=== PATIENT | female | born 1935 | race Caucasian/White ===

== ENCOUNTER 2018-12-01 09:45 | Emergency (ER) | payer MEDICARE ==
[~2018-12-01] VITALS: Ht 167.6 cm; Wt 72.7 kg
[2018-12-01 09:46] VITALS: TEMP 98.2
[2018-12-01 10:49] LABS: BASO # 0.1 (0.0-0.2); BASO % 0.4 % (0.0-2.0); EOS % 0.1 % (0-4.0); GRAN # 10.4 (1.4-6.5); GRAN % 88.5 % (42.2-75.2); HEMATOCRIT 48.8 % (37.0-47.0); HEMOGLOBIN 16.4 g/dl (12.5-16.0); LYMPH # 0.7 (1.2-3.4); LYMPH % 5.9 % (20.0-51.0); MEAN CELL VOLUME 89 fl (80.0-100.0); MEAN CORPUSCULAR HEMOGLOBIN 30 pg (27.0-31.0); MEAN CORPUSCULAR HGB CONC 34 g/dl (33.0-37.0); MEAN PLATELET VOLUME 11.2 fl (7.4-10.4); MONO # 0.6 (0.1-0.6); MONO % 4.7 % (1.7-9.3); PLATELET COUNT 206 K/mm3 (130-400); RED BLOOD COUNT 5.49 M/mm3 (4.10-5.30)
[2018-12-01 10:59] LABS: PROTHROMBIN TIME 11.3 SECONDS (9.7-12.8)
[2018-12-01 11:05] LABS: ALBUMIN 4.4 gm/dL (3.5-5.0); BILIRUBIN,TOTAL 1.1 mg/dL (0.0-1.0); CALCIUM 9.2 mg/dL (8.4-10.2); CREATININE, serum 1.26 (0.52-1.25); POTASSIUM 3.9 mmol/L (3.4-5.0); TOTAL PROTEIN 7.9 gm/dL (6.4-8.2)
[2018-12-01 11:23] VITALS: BP 146/83; PULSE 76
[2018-12-01 11:27] LABS: TROPONIN-I 0.056 ng/mL (0.000-0.035)
== END 2018-12-01 12:04 | disposition short-term general hospital (02) ==
LOC: COL.ER 09:45
PROVIDERS: Emergency Medicine
DX: I63.9 Cerebral infarction, unspecified (principal)
CPT/HCPCS: A4314; J2405; J2997

== ENCOUNTER 2018-12-22 21:29 | Inpatient (IN) | payer MEDICARE, MEDICAID ==
[~2018-12-22] VITALS: Ht 165.1 cm; Wt 65.9 kg
[2018-12-22 22:13] LABS: BASO # 0.1 (0.0-0.2); BASO % 0.3 % (0.0-2.0); EOS # 0.6 (0.0-0.7); EOS % 3.8 % (0-4.0); GRAN # 14.9 (1.4-6.5); GRAN % 87.3 % (42.2-75.2); LYMPH # 0.4 (1.2-3.4); LYMPH % 2.2 % (20.0-51.0); MEAN CELL VOLUME 89 fl (80.0-100.0); MEAN CORPUSCULAR HGB CONC 33 g/dl (33.0-37.0); MEAN PLATELET VOLUME 10.8 fl (7.4-10.4); MONO # 0.9 (0.1-0.6); MONO % 5.5 % (1.7-9.3); PLATELET COUNT 327 K/mm3 (130-400); RED BLOOD COUNT 3.31 M/mm3 (4.10-5.30); REDCELL DISTRIBUTION WIDTH-CV 14.5 % (11.5-14.5)
[2018-12-22 22:15] LABS: HEMATOCRIT 29.4 % (37.0-47.0); HEMOGLOBIN 9.7 g/dl (12.5-16.0); MEAN CORPUSCULAR HEMOGLOBIN 29 pg (27.0-31.0)
[2018-12-22 22:18] LABS: INR 1.2 (0.8-3.0)
[2018-12-22] MEDS ORDERED: LOPRESSOR 225 MG/TAB PO ×2 (22:18)
[2018-12-22] MEDS ORDERED: PACERONE400 MG PO (22:18)
[2018-12-22] MEDS ORDERED: NORVASC 10MG10 MG PO (22:19)
[2018-12-22] MEDS ORDERED: ASPIRIN 81M81 MG/TA2 PO (22:19)
[2018-12-22 22:20] LABS: ARTERIAL BLD GAS O2 SATURATION 94.8 % (92-100); ARTERIAL BLD GAS TCO2 CT 22.8; ARTERIAL BLOOD GAS BASE EXCESS -0.3 (-2-2); ARTERIAL BLOOD GAS HCO3 21.9 meq/L (22-26); ARTERIAL BLOOD GAS PCO2 28.1 mmHg (35-45); ARTERIAL BLOOD GAS PO2 70.8 mmHg (80-100); ARTERIAL BLOOD GAS pH 7.51 (7.35-7.45)
[2018-12-22] MEDS ORDERED: LIPITOR 40MG TA40 MG PO (22:20)
[2018-12-22 22:28] LABS: LIPASE 64 U/L (23-300)
[2018-12-22 22:39] LABS: C-REACTIVE PROTEIN 20.1 mg/dL (0.0-0.9); TROPONIN-I < 0.012 ng/mL (0.000-0.035)
[2018-12-22 23:13] LABS: ALBUMIN 3.4 gm/dL (3.5-5.0); BILIRUBIN,TOTAL 0.7 mg/dL (0.0-1.0); CALCIUM 8.2 mg/dL (8.4-10.2); CREATININE, serum 1.28 (0.52-1.25); POTASSIUM 4.4 mmol/L (3.4-5.0); TOTAL PROTEIN 6.5 gm/dL (6.4-8.2)
[2018-12-23] VITALS (101 sets, daily range): BP systolic 128–154; BP diastolic 55–76; PULSE 62–71; TEMP 98.2–98.7; O2SAT 88–95
[2018-12-23 01:35] LABS: COLLECTION METHOD CLEAN CATCH
[2018-12-23 01:44] LABS: MUCOUS Present /lpf; PH 5 (5-8); SQUAMOUS EPITHELIAL 0-2 /hpf; URINE APPEARANCE Clear; URINE BACTERIA None Seen /hpf; URINE BILIRUBIN Negative (NEGATIVE); URINE BLOOD Negative (NEGATIVE); URINE COLOR Yellow; URINE GLUCOSE Negative (NEGATIVE); URINE KETONE Negative (NEGATIVE); URINE LEUKOCYTE ESTERASE Negative (NEGATIVE); URINE NITRATE Negative (NEGATIVE); URINE PROTEIN(semi-quant) Negative (NEGATIVE); URINE RBC 0-2 /hpf; URINE UROBILINOGEN Negative (NEGATIVE)
[2018-12-23 09:32] LABS: ARTERIAL BLD GAS O2 SATURATION 88.5 % (92-100); ARTERIAL BLD GAS TCO2 CT 21.9; ARTERIAL BLOOD GAS BASE EXCESS -2.2 (-2-2); ARTERIAL BLOOD GAS HCO3 20.9 meq/L (22-26); ARTERIAL BLOOD GAS PCO2 30.3 mmHg (35-45); ARTERIAL BLOOD GAS PO2 53.9 mmHg (80-100); ARTERIAL BLOOD GAS pH 7.46 (7.35-7.45)
[2018-12-23 10:22] LABS: MEAN CELL VOLUME 90 fl (80.0-100.0); MEAN CORPUSCULAR HGB CONC 32 g/dl (33.0-37.0); MEAN PLATELET VOLUME 10.1 fl (7.4-10.4); PLATELET COUNT 234 K/mm3 (130-400); RED BLOOD COUNT 3.07 M/mm3 (4.10-5.30); REDCELL DISTRIBUTION WIDTH-CV 14.7 % (11.5-14.5)
[2018-12-23 10:24] LABS: HEMATOCRIT 27.5 % (37.0-47.0); HEMOGLOBIN 8.9 g/dl (12.5-16.0); MEAN CORPUSCULAR HEMOGLOBIN 29 pg (27.0-31.0)
[2018-12-23 10:34] LABS: ANION GAP 12 mmol/L (7-16); BLOOD UREA NITROGEN 26 mg/dL (7-17); CALCIUM 7.9 mg/dL (8.4-10.2); CARBON DIOXIDE 21 mmol/L (22-30); CHLORIDE 101 mmol/L (98-107); CREATININE, serum 1.42 (0.52-1.25); GLUCOSE 117 mg/dL (74-106); POTASSIUM 4.4 mmol/L (3.4-5.0); SODIUM 133 mmol/L (137-145)
[2018-12-23 10:47] LABS: TROPONIN-I < 0.012 ng/mL (0.000-0.035)
[2018-12-23 10:55] LABS: BAND 2 % (0-10); EOSINOPHIL 2 % (0-4); LYMPHOCYTE 1 % (20.0-51.0); NEUTROPHILS 93 % (42.0-75.2)
[2018-12-23 10:56] LABS: PLATELET ESTIMATE NORMAL (NORMAL)
[2018-12-23 12:47] LABS: PLEURAL FLUID RBC 3000 /mm3 (0-0); PLEURAL FLUID WBC 408 /mm3
[2018-12-23 12:59] LABS: GLUCOSE,PLEURAL FLUID 102 mg/dL
[2018-12-23 13:05] LABS: PLEURAL FLUID APPEARANCE CLEAR; PLEURAL FLUID COLOR YELLOW
[2018-12-23 13:06] LABS: TOTAL PROTEIN,PLEURAL FLUID < 2.0 gm/dL
[2018-12-23] MEDS ORDERED: ACIDOPHILIS (18:09)
[2018-12-23 19:17] LABS: HEMATOCRIT 24.8 % (37.0-47.0); HEMOGLOBIN 8.1 g/dl (12.5-16.0)
[2018-12-24] VITALS (440 sets, daily range): BP systolic 126–147; BP diastolic 53–68; PULSE 70–77; TEMP 98.1–98.7; O2SAT 88–99
[2018-12-24 05:57] LABS: CALCIUM 7.6 mg/dL (8.4-10.2); CREATININE, serum 1.34 (0.52-1.25); POTASSIUM 3.8 mmol/L (3.4-5.0)
[2018-12-24 05:59] LABS: MEAN CELL VOLUME 90 fl (80.0-100.0); MEAN CORPUSCULAR HGB CONC 32 g/dl (33.0-37.0); MEAN PLATELET VOLUME 10.7 fl (7.4-10.4); PLATELET COUNT 226 K/mm3 (130-400); RED BLOOD COUNT 2.73 M/mm3 (4.10-5.30); REDCELL DISTRIBUTION WIDTH-CV 14.7 % (11.5-14.5)
[2018-12-24 06:06] LABS: HEMATOCRIT 24.5 % (37.0-47.0); HEMOGLOBIN 7.8 g/dl (12.5-16.0); MEAN CORPUSCULAR HEMOGLOBIN 29 pg (27.0-31.0)
[2018-12-24 07:15] LABS: BAND 9 % (0-10); EOSINOPHIL 8 % (0-4); LYMPHOCYTE 2 % (20.0-51.0); NEUTROPHILS 77 % (42.0-75.2); PLATELET ESTIMATE NORMAL (NORMAL)
[2018-12-25] VITALS (487 sets, daily range): BP systolic 97–135; BP diastolic 40–72; PULSE 52–112; TEMP 97.7–99.2; O2SAT 65–100
[2018-12-25 05:52] LABS: BASO % 0.2 % (0.0-2.0); EOS # 0.8 (0.0-0.7); EOS % 6.1 % (0-4.0); GRAN # 10.8 (1.4-6.5); GRAN % 83.9 % (42.2-75.2); LYMPH # 0.5 (1.2-3.4); LYMPH % 4.2 % (20.0-51.0); MEAN CELL VOLUME 89 fl (80.0-100.0); MEAN CORPUSCULAR HGB CONC 33 g/dl (33.0-37.0); MEAN PLATELET VOLUME 10.3 fl (7.4-10.4); MONO # 0.6 (0.1-0.6); MONO % 4.8 % (1.7-9.3); PLATELET COUNT 254 K/mm3 (130-400); RED BLOOD COUNT 2.82 M/mm3 (4.10-5.30); REDCELL DISTRIBUTION WIDTH-CV 14.6 % (11.5-14.5)
[2018-12-25 05:55] LABS: HEMOGLOBIN 8.3 g/dl (12.5-16.0); MEAN CORPUSCULAR HEMOGLOBIN 29 pg (27.0-31.0)
[2018-12-25 06:05] LABS: ALBUMIN 2.9 gm/dL (3.5-5.0); BILIRUBIN,TOTAL 0.8 mg/dL (0.0-1.0); CALCIUM 7.6 mg/dL (8.4-10.2); CREATININE, serum 1.32 (0.52-1.25); TOTAL PROTEIN 5.8 gm/dL (6.4-8.2)
[2018-12-26] VITALS (643 sets, daily range): BP systolic 118–133; BP diastolic 47–56; PULSE 53–63; TEMP 97.4–98.8; O2SAT 73–100
[2018-12-26 05:39] LABS: MEAN CELL VOLUME 88 fl (80.0-100.0); MEAN CORPUSCULAR HGB CONC 33 g/dl (33.0-37.0); MEAN PLATELET VOLUME 10.6 fl (7.4-10.4); PLATELET COUNT 275 K/mm3 (130-400); RED BLOOD COUNT 2.73 M/mm3 (4.10-5.30); REDCELL DISTRIBUTION WIDTH-CV 14.6 % (11.5-14.5)
[2018-12-26 05:42] LABS: HEMOGLOBIN 7.9 g/dl (12.5-16.0); MEAN CORPUSCULAR HEMOGLOBIN 29 pg (27.0-31.0)
[2018-12-26 05:48] LABS: CALCIUM 7.5 mg/dL (8.4-10.2); CREATININE, serum 1.33 (0.52-1.25); POTASSIUM 3.3 mmol/L (3.4-5.0)
[2018-12-26 05:56] LABS: EOSINOPHIL 5 % (0-4); LYMPHOCYTE 4 % (20.0-51.0); NEUTROPHILS 87 % (42.0-75.2); PLATELET ESTIMATE NORMAL (NORMAL)
[2018-12-26] MEDS ORDERED: HERBAL PO (11:03)
[2018-12-26] MEDS ORDERED: [UNRECOGNIZED DRUG - OTHER] PO (11:03)
[2018-12-26 11:32] LABS: RETIC # 0.07 M/mm3 (0.02-0.16); RETIC % 2.5 % (0.5-3.52)
[2018-12-27] VITALS (729 sets, daily range): BP systolic 120–133; BP diastolic 49–83; PULSE 48–58; TEMP 97.7–98.2; O2SAT 82–100
[2018-12-27 00:01] LABS: ARTERIAL BLD GAS O2 SATURATION 88.7 % (92-100); ARTERIAL BLD GAS TCO2 CT 31.7; ARTERIAL BLOOD GAS BASE EXCESS 8.3 (-2-2); ARTERIAL BLOOD GAS HCO3 30.7 meq/L (22-26); ARTERIAL BLOOD GAS PCO2 33.8 mmHg (35-45); ARTERIAL BLOOD GAS PO2 52.1 mmHg (80-100); ARTERIAL BLOOD GAS pH 7.58 (7.35-7.45)
[2018-12-27 00:06] LABS: BASO % 0.2 % (0.0-2.0); EOS # 0.6 (0.0-0.7); EOS % 4.3 % (0-4.0); GRAN # 10.7 (1.4-6.5); GRAN % 83.3 % (42.2-75.2); HEMATOCRIT 23.6 % (37.0-47.0); HEMOGLOBIN 7.8 g/dl (12.5-16.0); LYMPH # 0.6 (1.2-3.4); LYMPH % 4.8 % (20.0-51.0); MEAN CELL VOLUME 88 fl (80.0-100.0); MEAN CORPUSCULAR HEMOGLOBIN 29 pg (27.0-31.0); MEAN CORPUSCULAR HGB CONC 33 g/dl (33.0-37.0); MEAN PLATELET VOLUME 10.8 fl (7.4-10.4); MONO # 0.8 (0.1-0.6); MONO % 6.2 % (1.7-9.3); PLATELET COUNT 293 K/mm3 (130-400); RED BLOOD COUNT 2.67 M/mm3 (4.10-5.30); REDCELL DISTRIBUTION WIDTH-CV 14.5 % (11.5-14.5)
[2018-12-27 00:16] LABS: CALCIUM 7.9 mg/dL (8.4-10.2); CREATININE, serum 1.37 (0.52-1.25); POTASSIUM 3.7 mmol/L (3.4-5.0)
[2018-12-28] VITALS (1013 sets, daily range): BP systolic 108–138; BP diastolic 48–85; PULSE 52–57; TEMP 97.7–98.5; O2SAT 74–100
[2018-12-28 05:04] LABS: MEAN CELL VOLUME 90 fl (80.0-100.0); MEAN CORPUSCULAR HGB CONC 32 g/dl (33.0-37.0); MEAN PLATELET VOLUME 10.8 fl (7.4-10.4); PLATELET COUNT 313 K/mm3 (130-400); RED BLOOD COUNT 2.54 M/mm3 (4.10-5.30); REDCELL DISTRIBUTION WIDTH-CV 14.9 % (11.5-14.5)
[2018-12-28 05:05] LABS: HEMATOCRIT 22.8 % (37.0-47.0); HEMOGLOBIN 7.3 g/dl (12.5-16.0); MEAN CORPUSCULAR HEMOGLOBIN 29 pg (27.0-31.0)
[2018-12-28 05:16] LABS: ALBUMIN 2.8 gm/dL (3.5-5.0); BILIRUBIN,TOTAL 0.7 mg/dL (0.0-1.0); CALCIUM 7.9 mg/dL (8.4-10.2); CREATININE, serum 1.52 (0.52-1.25); POTASSIUM 4.5 mmol/L (3.4-5.0); TOTAL PROTEIN 5.8 gm/dL (6.4-8.2)
[2018-12-28 06:13] LABS: BAND 12 % (0-10); EOSINOPHIL 4 % (0-4); HYPOCHROMIA 1+; LYMPHOCYTE 5 % (20.0-51.0); NEUTROPHILS 72 % (42.0-75.2); PLATELET ESTIMATE NORMAL (NORMAL)
[2018-12-28 20:50] LABS: HEMATOCRIT 26.2 % (37.0-47.0); HEMOGLOBIN 8.7 g/dl (12.5-16.0)
[2018-12-29] VITALS (286 sets, daily range): BP systolic 91–174; BP diastolic 41–76; PULSE 54–62; TEMP 97.7–98.7; O2SAT 73–100
[2018-12-29 09:43] LABS: MEAN CELL VOLUME 89 fl (80.0-100.0); MEAN CORPUSCULAR HGB CONC 33 g/dl (33.0-37.0); MEAN PLATELET VOLUME 10.2 fl (7.4-10.4); PLATELET COUNT 299 K/mm3 (130-400); RED BLOOD COUNT 2.57 M/mm3 (4.10-5.30); REDCELL DISTRIBUTION WIDTH-CV 14.8 % (11.5-14.5)
[2018-12-29 09:44] LABS: HEMATOCRIT 22.8 % (37.0-47.0); HEMOGLOBIN 7.4 g/dl (12.5-16.0); MEAN CORPUSCULAR HEMOGLOBIN 29 pg (27.0-31.0)
[2018-12-29 09:45] LABS: BASO # 0.1 (0.0-0.2); BASO % 0.5 % (0.0-2.0); EOS # 0.5 (0.0-0.7); EOS % 4.9 % (0-4.0); GRAN # 8.8 (1.4-6.5); GRAN % 83.2 % (42.2-75.2); LYMPH # 0.4 (1.2-3.4); LYMPH % 4.2 % (20.0-51.0); MONO # 0.6 (0.1-0.6); MONO % 5.8 % (1.7-9.3)
[2018-12-29 09:56] LABS: ALBUMIN 2.7 gm/dL (3.5-5.0); BILIRUBIN,TOTAL 0.8 mg/dL (0.0-1.0); CALCIUM 7.7 mg/dL (8.4-10.2); CREATININE, serum 1.31 (0.52-1.25); TOTAL PROTEIN 5.5 gm/dL (6.4-8.2)
[2018-12-29 09:59] LABS: POTASSIUM 2.9 mmol/L (3.4-5.0)
[2018-12-29 10:20] LABS: BAND 6 % (0-10); EOSINOPHIL 5 % (0-4); LYMPHOCYTE 4 % (20.0-51.0); METAMYELOCYTE 4 % (0-0); NEUTROPHILS 79 % (42.0-75.2)
[2018-12-29 10:21] LABS: HYPOCHROMIA 1+; PLATELET ESTIMATE NORMAL (NORMAL)
[2018-12-29 16:58] LABS: RHEUMATOID FACTOR-SCREEN <15 IU/mL (0-29)
[2018-12-29 17:12] LABS: PROCALCITONIN 0.22 ng/mL (0.00-0.09)
[2018-12-30 05:19] VITALS: BP 191/59; PULSE 57; TEMP 98.8
[2018-12-30 06:57] LABS: CALCIUM 7.7 mg/dL (8.4-10.2); CREATININE, serum 1.58 (0.52-1.25); POTASSIUM 3.5 mmol/L (3.4-5.0)
[2018-12-30 08:13] VITALS: BP 149/49; PULSE 58; TEMP 98.3
[2018-12-30 11:36] VITALS: BP 121/46; PULSE 54; TEMP 98.3
[2018-12-30 23:31] LABS: C-ANCA 23 U/mL (0-99)
[2018-12-31 14:46] LABS: ANGIOTENSIN CONVERTING ENZYME 24 U/L (16 - 85)
== END 2018-12-30 12:25 | DRG 189 ==
LOC: COL.ER 21:29 → ICU 12-23 00:27 → MEDICAL 12-26 19:31 → ICU 12-27 01:58 → MEDICAL 12-29 16:05 → ICU 12-29 16:05 → MEDICAL 12-29 16:05
PROVIDERS: Emergency Medicine; Family Medicine; Internal Medicine Pulmonary Disease; Nurse Practitioner; Nurse Practitioner Family; Physician Assistant
PROC: 0W993ZZ Drainage of Right Pleural Cavity, Percutaneous Approach (ICD-10-PCS; principal; 2018-12-23)
PROC: 02HV33Z Insertion of Infusion Device into Superior Vena Cava, Percutaneous Approach (ICD-10-PCS; 2018-12-23)
PROC: 0W9B3ZZ Drainage of Left Pleural Cavity, Percutaneous Approach (ICD-10-PCS; 2018-12-23)
PROC: 0DJ08ZZ Inspection of Upper Intestinal Tract, Via Natural or Artificial Opening Endoscopic (ICD-10-PCS; 2018-12-29)
PROC: 0DBK8ZZ Excision of Ascending Colon, Via Natural or Artificial Opening Endoscopic (ICD-10-PCS; 2018-12-29)
PROC: 0DBM8ZZ Excision of Descending Colon, Via Natural or Artificial Opening Endoscopic (ICD-10-PCS; 2018-12-29)
DX: J96.01 Acute respiratory failure with hypoxia (principal); J18.1 Lobar pneumonia, unspecified organism; J15.9 Unspecified bacterial pneumonia; J90 Pleural effusion, not elsewhere classified; D62 Acute posthemorrhagic anemia; N17.9 Acute kidney failure, unspecified; I48.91 Unspecified atrial fibrillation; I95.9 Hypotension, unspecified; E87.6 Hypokalemia; K44.9 Diaphragmatic hernia without obstruction or gangrene; K63.5 Polyp of colon; K64.0 First degree hemorrhoids; M19.90 Unspecified osteoarthritis, unspecified site; Z96.641 Presence of right artificial hip joint; I27.20 Pulmonary hypertension, unspecified; I08.1 Rheumatic disorders of both mitral and tricuspid valves; E87.70 Fluid overload, unspecified; K21.9 Gastro-esophageal reflux disease without esophagitis; I12.9 Hypertensive chronic kidney disease with stage 1 through stage 4 chronic kidney disease, or unspecified chronic kidney disease; N18.3 Chronic kidney disease, stage 3 (moderate); K57.30 Diverticulosis of large intestine without perforation or abscess without bleeding; E78.5 Hyperlipidemia, unspecified; Z86.73 Personal history of transient ischemic attack (TIA), and cerebral infarction without residual deficits; Z79.82 Long term (current) use of aspirin
CPT/HCPCS: 99223-AI; 99232-AI; 99233-AI; 99239; A4216; A4314; C1751; J0282; J0456; J0692; J0881; J1940; J2405; J2543; J2704; J2765; J2997; J3480; J7030; J7050; J7060; J7120; Q9967

== ENCOUNTER → 2019-01-31 | Outpatient (CLI) | payer MEDICARE, MEDICAID ==
[~2019-01-31] MED LIST: ACIDOPHILIS; ASPIRIN 81M81 MG/TA2 PO; HERBAL PO; LIPITOR 40MG TA40 MG PO; LOPRESSOR 225 MG/TAB PO; NORVASC 10MG10 MG PO; PACERONE400 MG PO; [UNRECOGNIZED DRUG - OTHER] PO
[2019-01-31 21:30] LABS: BASO % 0.6 % (0.0-2.0); EOS # 0.4 (0.0-0.7); EOS % 5.9 % (0-4.0); GRAN # 5.2 (1.4-6.5); GRAN % 73.3 % (42.2-75.2); LYMPH # 0.8 (1.2-3.4); LYMPH % 10.7 % (20.0-51.0); MEAN CELL VOLUME 91 fl (80.0-100.0); MEAN CORPUSCULAR HGB CONC 32 g/dl (33.0-37.0); MEAN PLATELET VOLUME 11.9 fl (7.4-10.4); MONO # 0.7 (0.1-0.6); MONO % 9.2 % (1.7-9.3); PLATELET COUNT 201 K/mm3 (130-400); RED BLOOD COUNT 3.33 M/mm3 (4.10-5.30); REDCELL DISTRIBUTION WIDTH-CV 17.4 % (11.5-14.5)
[2019-01-31 21:36] LABS: CALCIUM 8.2 mg/dL (8.4-10.2); CREATININE, serum 1.4 (0.52-1.25); POTASSIUM 5.4 mmol/L (3.4-5.0)
[2019-01-31 21:38] LABS: HEMATOCRIT 30.2 % (37.0-47.0); HEMOGLOBIN 9.5 g/dl (12.5-16.0); MEAN CORPUSCULAR HEMOGLOBIN 29 pg (27.0-31.0)
[2019-01-31 22:06] LABS: THYROID STIMULATING HORMONE 7.63 uIU/mL (0.465-4.680)
== END ==
LOC: ZCOL.LAB 19:38
PROVIDERS: Family Medicine
DX: D64.9 Anemia, unspecified (principal); R79.89 Other specified abnormal findings of blood chemistry; R94.6 Abnormal results of thyroid function studies

== ENCOUNTER 2019-03-05 19:30 | Emergency (ER) | payer MEDICARE, MEDICAID ==
[~2019-03-05] VITALS: Ht 162.6 cm; Wt 61.4 kg
[2019-03-05 19:45] VITALS: BP 192/77; TEMP 97.8
[2019-03-05] MEDS ORDERED: CORDARONE200 MG/TAB PO (20:30)
[2019-03-05] MEDS ORDERED: TIROSINT50 MC1 PO (20:31)
[2019-03-05] MEDS ORDERED: KAPSPARGO SPRIN25 MG PO (20:31)
[2019-03-05 20:45] LABS: BASO # 0.1 (0.0-0.2); BASO % 0.8 % (0.0-2.0); EOS # 0.3 (0.0-0.7); EOS % 4.2 % (0-4.0); GRAN # 5.3 (1.4-6.5); GRAN % 72.9 % (42.2-75.2); HEMOGLOBIN 11.4 g/dl (12.5-16.0); LYMPH # 0.9 (1.2-3.4); LYMPH % 12.8 % (20.0-51.0); MEAN CELL VOLUME 90 fl (80.0-100.0); MEAN CORPUSCULAR HEMOGLOBIN 28 pg (27.0-31.0); MEAN CORPUSCULAR HGB CONC 32 g/dl (33.0-37.0); MEAN PLATELET VOLUME 11.5 fl (7.4-10.4); MONO # 0.7 (0.1-0.6); PLATELET COUNT 160 K/mm3 (130-400); RED BLOOD COUNT 4.04 M/mm3 (4.10-5.30); REDCELL DISTRIBUTION WIDTH-CV 16.5 % (11.5-14.5)
[2019-03-05 20:54] LABS: HEMATOCRIT 36.2 % (37.0-47.0)
[2019-03-05 21:07] LABS: ALBUMIN 4.1 gm/dL (3.5-5.0); BILIRUBIN,TOTAL 0.4 mg/dL (0.0-1.0); CALCIUM 8.7 mg/dL (8.4-10.2); CREATININE, serum 1.62 (0.52-1.25); TOTAL PROTEIN 6.9 gm/dL (6.4-8.2)
[2019-03-05 22:03] VITALS: PULSE 53
== END 2019-03-05 22:03 | disposition home or self-care (01) ==
LOC: COL.ER 19:30
PROVIDERS: Emergency Medicine
DX: S93.401A Sprain of unspecified ligament of right ankle, initial encounter (principal); I48.91 Unspecified atrial fibrillation; N18.9 Chronic kidney disease, unspecified; Z86.73 Personal history of transient ischemic attack (TIA), and cerebral infarction without residual deficits; W19.XXXA Unspecified fall, initial encounter; Y92.009 Unspecified place in unspecified non-institutional (private) residence as the place of occurrence of the external cause

== ENCOUNTER 2019-11-16 12:20 | Inpatient (IN) | payer MEDICARE, MEDICAID ==
[~2019-11-16] VITALS: Ht 165.1 cm; Wt 60.0 kg
[~2019-11-16 12:20] MED LIST changes: +CORDARONE200 MG/TAB PO; +KAPSPARGO SPRIN25 MG PO; +TIROSINT50 MC1 PO
[2019-11-16 13:41] LABS: BASO % 0.4 % (0.0-2.0); EOS % 0.7 % (0-4.0); GRAN # 4.3 (1.4-6.5); GRAN % 79.3 % (42.2-75.2); HEMOGLOBIN 11.8 g/dl (12.5-16.0); LYMPH # 0.5 (1.2-3.4); LYMPH % 9.4 % (20.0-51.0); MEAN CELL VOLUME 87 fl (80.0-100.0); MEAN CORPUSCULAR HEMOGLOBIN 29 pg (27.0-31.0); MEAN CORPUSCULAR HGB CONC 33 g/dl (33.0-37.0); MEAN PLATELET VOLUME 10.7 fl (7.4-10.4); MONO # 0.5 (0.1-0.6); MONO % 8.9 % (1.7-9.3); PLATELET COUNT 208 K/mm3 (130-400); REDCELL DISTRIBUTION WIDTH-CV 17.6 % (11.5-14.5)
[2019-11-16 13:45] LABS: INR 1.4 (0.8-3.0); PROTHROMBIN TIME 15.7 SECONDS (9.7-12.8)
[2019-11-16 13:46] LABS: HEMATOCRIT 35.5 % (37.0-47.0)
[2019-11-16 13:55] LABS: ALBUMIN 4.1 gm/dL (3.5-5.0); BILIRUBIN,TOTAL 1.4 mg/dL (0.0-1.0); CALCIUM 8.5 mg/dL (8.4-10.2); CREATININE, serum 2.91 (0.52-1.25); POTASSIUM 3.4 mmol/L (3.4-5.0); TOTAL PROTEIN 7.5 gm/dL (6.4-8.2)
[2019-11-16 14:12] LABS: TROPONIN-I 0.041 ng/mL (0.000-0.035)
[2019-11-16 14:40] LABS: COLLECTION METHOD CLEAN CATCH
[2019-11-16 14:49] LABS: MUCOUS Present /lpf; PH 6 (5-8); SQUAMOUS EPITHELIAL 0-2 /hpf; URINE APPEARANCE Clear; URINE BACTERIA None Seen /hpf; URINE BILIRUBIN Negative (NEGATIVE); URINE BLOOD Negative (NEGATIVE); URINE COLOR Straw; URINE GLUCOSE Negative (NEGATIVE); URINE KETONE Negative (NEGATIVE); URINE LEUKOCYTE ESTERASE Negative (NEGATIVE); URINE NITRATE Negative (NEGATIVE); URINE PROTEIN(semi-quant) Negative (NEGATIVE); URINE RBC 0-2 /hpf; URINE UROBILINOGEN Negative (NEGATIVE)
[2019-11-16] MEDS ORDERED: NITRO-TIME2.5 MG PO (15:21)
[2019-11-16] MEDS ORDERED: LASIX 40MG40 MG/4 ML PO (15:21)
[2019-11-16] MEDS ORDERED: PACERONE100 MG PO (15:22)
[2019-11-16] MEDS ORDERED: NORMODYNE200 MG PO (15:23)
[2019-11-16] MEDS ORDERED: CATAPRES 0.1MG0.1 MG PO (15:23)
[2019-11-16] MEDS ORDERED: NORVASC 10MG10 MG PO (15:23)
[2019-11-16] MEDS ORDERED: SYNTHROID0.075 MG/T PO (15:24)
[2019-11-16] MEDS ORDERED: ZESTRIL 5MG5 MG PO (15:24)
[2019-11-16] MEDS ORDERED: ELIQUIS 2.5 PO (15:25)
[2019-11-16] MEDS ORDERED: B COMPLEX & B121 TAB (15:25)
[2019-11-16] MEDS ORDERED: ZOFRAN ODT4 MG PO (15:25)
[2019-11-16] MEDS ORDERED: OMEGA-3 1000 MG1 CAP PO (15:27)
[2019-11-16] MEDS ORDERED: [UNRECOGNIZED DRUG - OTHER] (15:27)
[2019-11-16] MEDS ORDERED: [UNRECOGNIZED DRUG - OTHER] (15:29)
[2019-11-16] MEDS ORDERED: MULTI VITAMINS1 TAB PO (15:29)
[2019-11-16] MEDS ORDERED: [UNRECOGNIZED DRUG - OTHER] (15:30)
[2019-11-16] MEDS ORDERED: [UNRECOGNIZED DRUG - OTHER] (15:31)
[2019-11-16 17:36] VITALS: BP 116/55; PULSE 71; TEMP 98.1
[2019-11-16 17:38] VITALS: BP 76/43; PULSE 74
--- NOTE | 2019-11-16 18:50 | NUR ---
Pt REPORT RECEIVED FROM JACQUIE CABRERA AT BEDSIDE. Pt IS RESTING PEACEFULLY IN BED WITH EYES CLOSED AND NO S/S OF DISTRESS NOTED. CALL LIGHT IS WITHIN REACH. WILL CONTINUE TO MONITOR.
--- NOTE | 2019-11-16 19:24 | NUR ---
PT ARRIVED FROM ED VIA STRETCHER WITH DAUGHTER AT BEDSIDE. PT WAS TRANSFERRED TO HER BED. ORTHOSTATIC BP WERE TAKEN, SUPINE: 116/55 SITTIN/43. IMMEDIATELY NOTIFIED PROVIDER WHO WAS OUTSIDE THE DOOR. NS STARTED AT 150ML/HR. PT IS LAYING IN BED, BED ALARM IS ON, AND PT HAS BEEN ORIENTED TO THE ROOM. NO FURTHER CONCERNS AT THIS TIME.
[2019-11-16 20:25] VITALS: BP 138/51; PULSE 69; TEMP 98.1
--- NOTE | 2019-11-16 22:36 | NUR ---
Pt HAS SPENT MOST OF THE SHIFT RESTING IN BED WITH EYES CLOSED AND REPORTING THAT SHE IS SLEEPING. Pt WAS EASILY AROUSED FOR HS MEDS AND IS COMPLIANT WITH CARE AND MEDICATION REGIMEN. Pt IS A&OX4 AND IS ABLE TO EXPRESS HER WANTS/NEEDS EASILY. NO S/S OF DISTRESS NOTED. Pt HAS IV FLUIDS INFUSING WITHOUT COMPLICATIONS NOR S/S OF ADVERSE IV REACTIONS. WILL CONTINUE TO MONITOR. CALL LIGHT WITHIN REACH AND PERSONAL ITEMS ARE WITHIN REACH ON THE BEDSIDE TABLE.
[2019-11-16 22:56] VITALS: BP 151/42; PULSE 66; TEMP 98.1
[2019-11-17] VITALS (10 sets, daily range): BP systolic 142–194; BP diastolic 57–71; PULSE 64–88; TEMP 97.7–98.8
--- NOTE | 2019-11-17 03:34 | NUR ---
Pt resting in bed peacefully alternating between lying with eyes closed and at other times when this song writer enters rooms for rounds Pt states "I'm awake". Pt remains in stable condition at this time with no s/s of distress. Pt has been up to use restroom without reports of dizzyness and no loss of balance as reported by KAILYN Taylor. Call light remains within reach. Pt remains in positive mood and compliant with care. Will continue to monitor.
[2019-11-17 06:10] LABS: BASO % 0.3 % (0.0-2.0); EOS # 0.2 (0.0-0.7); EOS % 3.4 % (0-4.0); GRAN # 4.1 (1.4-6.5); GRAN % 69.1 % (42.2-75.2); HEMOGLOBIN 10.8 g/dl (12.5-16.0); LYMPH # 0.8 (1.2-3.4); LYMPH % 13.6 % (20.0-51.0); MEAN CELL VOLUME 88 fl (80.0-100.0); MEAN CORPUSCULAR HEMOGLOBIN 29 pg (27.0-31.0); MEAN CORPUSCULAR HGB CONC 33 g/dl (33.0-37.0); MONO # 0.7 (0.1-0.6); MONO % 12.2 % (1.7-9.3); PLATELET COUNT 200 K/mm3 (130-400); RED BLOOD COUNT 3.79 M/mm3 (4.10-5.30); REDCELL DISTRIBUTION WIDTH-CV 17.6 % (11.5-14.5)
[2019-11-17 06:17] LABS: HEMATOCRIT 33.2 % (37.0-47.0)
[2019-11-17 06:25] LABS: ALBUMIN 3.4 gm/dL (3.5-5.0); BILIRUBIN,TOTAL 0.8 mg/dL (0.0-1.0); CALCIUM 8.1 mg/dL (8.4-10.2); CREATININE, serum 2.97 (0.52-1.25); POTASSIUM 4.2 mmol/L (3.4-5.0); TOTAL PROTEIN 6.4 gm/dL (6.4-8.2)
--- NOTE | 2019-11-17 11:38 | NUR ---
MARLENI met with the patient to complete initial intake. The patient lives in [place] with her daughter, Milagros and son-in-law. The patient used oxygen after a recent hospitalization in [place] and has the equipment to use it but has not needed it. The patient is independent with ADLs. The patient's PCP is Dr. Moore and patient receives medications from [facility] with no difficulties. The patient does not have advanced directives in the EMR but states they are complete. However, she does want to change it and wanted a DPOA-HC form. Form provided. The patient's daughter will be here to visit this day and the patient wants to wait until she get here to complete the form. Physical therapist Katie informed MARLENI that the patient was interested in HHS. MARLENI presented Medicare.gov's list of irrigation equipment mechanic in [place]. The patient states she has had [facility] in the past and would like to use them again. MARLENI faxed referral to [facility]. MARLENI contacted them and they provided services for the patient 07/2017. Awaiting response. MARLENI will continue to follow to ensure a safe discharge.
--- NOTE | 2019-11-17 12:50 | NUR ---
Sushila from [facility] contacted SW. She reports they can take the patient for HHS. Will continue to monitor.
--- NOTE | 2019-11-17 19:44 | NUR ---
Patient have an episode of hypertension this afternon BP 196/96 SUPINE, 172/[address] Barroso gave a verbal order for Hydralizine 10mg IV PRN, Q4H and Norvasc 5mg onetime PO. BP was rechecked 179/57. Gave zofran onetime for nausea. Retropeitoneal shows slight Diminished Kidney size. Dr Phillips was consulted for PRAVEEN indicated by CR 2.97. report given to DEBORAH Aburto.
--- NOTE | 2019-11-17 20:11 | NUR ---
patient medical record was recieved from [facility]
--- NOTE | 2019-11-17 22:27 | NUR ---
patient is without IV at this time. waiting for warehouse puller to attempt
[2019-11-18 04:47] VITALS: BP 159/52; PULSE 85; TEMP 98.2
--- NOTE | 2019-11-18 06:24 | NUR ---
PATIENT STARTED THE SHIFT WHEN I FLUSHED HER IV AND IT WAS BAD. SHE WAS WITHOUT AN IV FOR A COUPLE HOURS WAITING FOR HOUSE SUP. PATIENT DID HAVE A BOUT OF NAUSEA WITH DRY HEAVING BUT WITH SOME ZOFRAN THAT WAS DIMINISHED. PATIENT GOT 2 X1 MEDICATIONS TO HELP WITH BLOOD PRESSURE AND THIS MORNING HER BLOOD PRESSURE IS DECREASED FROM WHAT IT WAS. PATIENT HAS SLEPT OK BESIDES GETTING UP TO THE BATHROOM. WILL REPORT OFF TO DAY SHIFT.
[2019-11-18 07:36] VITALS: BP 151/64; PULSE 88; TEMP 97.7
[2019-11-18 08:55] LABS: HEMATOCRIT 37.9 % (37.0-47.0); HEMOGLOBIN 12.4 g/dl (12.5-16.0); MEAN CELL VOLUME 86 fl (80.0-100.0); MEAN CORPUSCULAR HEMOGLOBIN 28 pg (27.0-31.0); MEAN CORPUSCULAR HGB CONC 33 g/dl (33.0-37.0); MEAN PLATELET VOLUME 10.8 fl (7.4-10.4); PLATELET COUNT 250 K/mm3 (130-400); REDCELL DISTRIBUTION WIDTH-CV 17.7 % (11.5-14.5)
--- NOTE | 2019-11-18 08:59 | NUR ---
Pt awake upon entry, does not want her breakfast this morning, no C/O pain at this time, shift assessments complete, left Pt call light in reach, bed in lowest position.
[2019-11-18 09:00] LABS: CALCIUM 8.8 mg/dL (8.4-10.2); CREATININE, serum 2.4 (0.52-1.25); POTASSIUM 4.3 mmol/L (3.4-5.0)
[2019-11-18 10:12] LABS: BAND 3 % (0-10); LYMPHOCYTE 14 % (20.0-51.0); METAMYELOCYTE 2 % (0-0); NEUTROPHILS 78 % (42.0-75.2); PLATELET ESTIMATE NORMAL (NORMAL)
--- NOTE | 2019-11-18 11:56 | NUR ---
First visit from the technology support analyst. prayed with patient. No other needs right now.
[2019-11-18 13:01] VITALS: BP 156/53; PULSE 78; TEMP 97.6
[2019-11-18 17:32] VITALS: BP 165/48; PULSE 77; TEMP 98.3
--- NOTE | 2019-11-18 18:29 | NUR ---
Pt resting in the room today, no C/O pain throughout the day, BP were 150s to 160 today, other VS have remained stable.
[2019-11-18 19:20] VITALS: BP 152/64; PULSE 80; TEMP 97.7
--- NOTE | 2019-11-18 20:00 | NUR ---
At time of assessment, patient is sleeping in bed but arouses easily to voice. She is alert and oriented, lungs are clear, heart sounds normal/regular, no edema, no pain. She does not complain of nausea at this time either. No new concerns, will continue to monitor.
[2019-11-18 23:29] VITALS: BP 157/51; PULSE 81; TEMP 98.3
[2019-11-19 03:05] VITALS: BP 160/65; PULSE 69; TEMP 98
[2019-11-19 06:52] LABS: CALCIUM 8.8 mg/dL (8.4-10.2); CREATININE, serum 2.1 (0.52-1.25); POTASSIUM 4.2 mmol/L (3.4-5.0)
[2019-11-19 07:07] LABS: BASO # 0.1 (0.0-0.2); BASO % 0.7 % (0.0-2.0); EOS # 0.3 (0.0-0.7); EOS % 3.2 % (0-4.0); GRAN # 6.5 (1.4-6.5); GRAN % 73.7 % (42.2-75.2); HEMOGLOBIN 11.7 g/dl (12.5-16.0); LYMPH # 1.1 (1.2-3.4); MEAN CELL VOLUME 88 fl (80.0-100.0); MEAN CORPUSCULAR HEMOGLOBIN 28 pg (27.0-31.0); MEAN CORPUSCULAR HGB CONC 32 g/dl (33.0-37.0); MEAN PLATELET VOLUME 10.5 fl (7.4-10.4); MONO # 0.8 (0.1-0.6); PLATELET COUNT 233 K/mm3 (130-400); RED BLOOD COUNT 4.14 M/mm3 (4.10-5.30); REDCELL DISTRIBUTION WIDTH-CV 17.9 % (11.5-14.5)
[2019-11-19 07:15] VITALS: BP 182/76; PULSE 87; TEMP 98.3
[2019-11-19 07:16] LABS: HEMATOCRIT 36.4 % (37.0-47.0)
[2019-11-19 08:00] VITALS: BP 184/70
--- NOTE | 2019-11-19 08:00 | NUR ---
PT IN BED, PT GIVEN MEDICATION AND ASSESSMENT PERFORMED. ORTHOSTATICS PERFORMED, HELD HYDRALAZINE DUE TO DROPS IN ORTHOSTATICS. PT DENIES PAIN OR DISCOMFORT, NO OTHER NEEDS AT THIS TIME.
[2019-11-19 12:00] VITALS: BP 190/62; PULSE 84; TEMP 99
--- NOTE | 2019-11-19 12:12 | NUR ---
PT BLOOD PRESSURE RELAYED TO STEFANO MARTINEZ, NO INTERVENTION AT THIS TIME DUE TO POSSIBLE ADRENAL INTERFERENCE.
[2019-11-19 15:45] VITALS: BP 182/70; PULSE 87; TEMP 98.2
[2019-11-19 19:52] VITALS: BP 138/60; PULSE 82; TEMP 98.4
[2019-11-20] VITALS (8 sets, daily range): BP systolic 122–166; BP diastolic 56–66; PULSE 72–78; TEMP 97.8–98.3
--- NOTE | 2019-11-20 04:21 | NUR ---
PATIENT TOOK HER HS PILLS WITHOUT DIFFICULTY. PATIENT IS SCHEDULED TO HAVE A acth STIMULATION TEST THIS MORNING AT 0600 TO CHECK HER ADRENAL STATUS. PATIENT IS ALERT AND ORIENTATED AND USES HER CALL LIGHT WHEN SHE NEEDS ANYTHING. PATIENT DOES HAVE POSITIVE ORTHOSTATIC BLOOD PRESSURE BECAUSE WHEN SHE GOES FROM LYING TO STANDING SHE DROPS AROUND 60 POINTS. PATIENT USES HER CALL LIGHT IF SHE NEEDS ANYTHING. PATIENT HAS BEEN RESTING IN BED THROUGH THE NIGHT. WILL REPORT OFF TO DAY SHIFT
--- NOTE | 2019-11-20 07:37 | NUR ---
PT IN BED RESTING AND LISTENING TO AUDIOBOOK, DENIES PAIN OR DISCOMFORT, SHE SAID SHE WAS HUNGRY, PT ORTHOSTATICS TAKEN, MEDICATIONS GIVEN, ASSESSMENT PERFORMED, BED IN LOW POSITION, CALL LIGHT AND TABLE AT BEDSIDE. BED ALARM ON. NO OTHER NEEDS AT THIS TIME.
[2019-11-20 07:43] LABS: BASO # 0.1 (0.0-0.2); BASO % 0.7 % (0.0-2.0); EOS # 0.4 (0.0-0.7); GRAN # 5.9 (1.4-6.5); GRAN % 71.3 % (42.2-75.2); HEMOGLOBIN 11.7 g/dl (12.5-16.0); LYMPH # 1.1 (1.2-3.4); MEAN CELL VOLUME 89 fl (80.0-100.0); MEAN CORPUSCULAR HEMOGLOBIN 29 pg (27.0-31.0); MEAN CORPUSCULAR HGB CONC 32 g/dl (33.0-37.0); MEAN PLATELET VOLUME 10.4 fl (7.4-10.4); MONO # 0.8 (0.1-0.6); MONO % 9.1 % (1.7-9.3); PLATELET COUNT 233 K/mm3 (130-400); RED BLOOD COUNT 4.09 M/mm3 (4.10-5.30); REDCELL DISTRIBUTION WIDTH-CV 17.5 % (11.5-14.5)
[2019-11-20 07:46] LABS: HEMATOCRIT 36.2 % (37.0-47.0)
[2019-11-20 07:54] LABS: CALCIUM 8.8 mg/dL (8.4-10.2); CREATININE, serum 1.92 (0.52-1.25); POTASSIUM 4.1 mmol/L (3.4-5.0)
--- NOTE | 2019-11-20 11:03 | NUR ---
MARLENI attended clinical rounds with the team. The patient's daughter, Milagros was on the phone on speaker phone. The patient may be ready for discharge later today. MARLENI presented the IM form. The patient understood and signed the form. A copy was provided to the patient and the original was placed in the chart. Will continue to monitor.
--- NOTE | 2019-11-20 17:00 | NUR ---
PT IN BED WITH LIGHTS OFF MOST OF DAY, PLEASANT DEMEANOR, LISTENS TO AUDIO BOOKS. PT DENIES PAIN OR DISCOMFORT, BED IN LOWEST POSITION. WAITING ON CORTISOL LAB RESULTS. WATER AT BEDSIDE, NO OTHER NEEDS AT THIS TIME.
--- NOTE | 2019-11-20 17:55 | NUR ---
ANSWERED SOME QUESTIONS ABOUT POC TO DAUGHTER THAT IS IN ROOM WITH PT. CALLED PHYSICIAN TO SEE ABOUT DISCHARGE PLANNING. PHYSICIAN SAID SHE WOULD VISIT PT AND DAUGHTER TO DISCUSS DISCHARGE. NO OTHER NEEDS AT THIS TIME.
[2019-11-21 04:32] VITALS: BP 156/61; PULSE 76; TEMP 98.2
--- NOTE | 2019-11-21 05:32 | NUR ---
PATIENT HAS RESTED THROUGH THE NIGHT CALLING WHEN SHE NEEDS TO GO TO THE RESTROOM. PATIENT HAS DENIED ANY OTHER NEEDS. WILL REPORT OFF TO DAY SHIFT.
[2019-11-21 07:26] VITALS: BP 148/65; PULSE 73; TEMP 98
--- NOTE | 2019-11-21 08:12 | NUR ---
PT RESTING IN BED AT THIS TIME PLAYING GAMES ON HER IPAD. PT ASSESSMENT COMPLETED. PT ALERT AND ORIENTED X4. COMPLAINTS OF "BURNING" PAIN TO HER UPPER MID ABDOMEN THAT SHE RATES AN 8/10. INT TO RIGHT FOREARM PATENT AND FREE OF COMPLICATIONS. PT DENIES ANY OTHER NEEDS AT THIS TIME. CALL LIGHT WITHIN REACH. WILL CONTINUE TO MONITOR.
[2019-11-21 08:40] LABS: BASO # 0.1 (0.0-0.2); BASO % 0.5 % (0.0-2.0); EOS # 0.5 (0.0-0.7); EOS % 4.9 % (0-4.0); GRAN # 6.9 (1.4-6.5); GRAN % 74.6 % (42.2-75.2); HEMOGLOBIN 10.5 g/dl (12.5-16.0); LYMPH # 0.9 (1.2-3.4); LYMPH % 9.8 % (20.0-51.0); MEAN CELL VOLUME 88 fl (80.0-100.0); MEAN CORPUSCULAR HEMOGLOBIN 29 pg (27.0-31.0); MEAN CORPUSCULAR HGB CONC 33 g/dl (33.0-37.0); MEAN PLATELET VOLUME 10.3 fl (7.4-10.4); MONO # 0.9 (0.1-0.6); MONO % 9.2 % (1.7-9.3); PLATELET COUNT 213 K/mm3 (130-400); REDCELL DISTRIBUTION WIDTH-CV 17.4 % (11.5-14.5)
[2019-11-21 08:49] LABS: HEMATOCRIT 31.7 % (37.0-47.0)
[2019-11-21 08:57] LABS: CALCIUM 8.3 mg/dL (8.4-10.2); CREATININE, serum 1.89 (0.52-1.25); POTASSIUM 4.2 mmol/L (3.4-5.0)
[2019-11-21] MEDS ORDERED: COZAAR 25MG25 MG/TAB PO (10:02)
[2019-11-21] MEDS ORDERED: PRIL40 PO (10:02)
[2019-11-21 10:11] VITALS: BP 151/59; PULSE 73
[2019-11-21 10:13] VITALS: BP 151/58; PULSE 75
[2019-11-21 10:16] VITALS: BP 138/53; PULSE 78
--- NOTE | 2019-11-21 13:22 | NUR ---
Discharge instructions provided to pt. Pt verbalized understanding of all discharge instructions provided including follow up appointments and medications. Pt denies any other questions or needs at this time. INT to right forearm discontinued. Pt escorted out with all personal belongings at this time by this RN.
--- NOTE | 2019-11-21 17:14 | NUR ---
MARLENI contacted patients nurse about patient and was informed that patient had been discharged. MARLENI contacted [facility] and informed Lc that patient had been discharged that that the discharge orders were faxed to [phone]. Lc indicated that they would contact the patient tonight and visit her tomorrow.
== END 2019-11-21 13:24 | disposition home health service (06) | DRG 281 ==
LOC: COL.ER 12:20 → MEDICAL 14:16
PROVIDERS: Emergency Medicine; Family Medicine; Internal Medicine Nephrology; Physician Assistant; ADMIT Internal Medicine
DX: I95.2 Hypotension due to drugs (principal); I21.A1 Myocardial infarction type 2; N17.9 Acute kidney failure, unspecified; I13.0 Hypertensive heart and chronic kidney disease with heart failure and stage 1 through stage 4 chronic kidney disease, or unspecified chronic kidney disease; I50.32 Chronic diastolic (congestive) heart failure; I31.3 Pericardial effusion (noninflammatory); E86.9 Volume depletion, unspecified; I48.91 Unspecified atrial fibrillation; Z79.01 Long term (current) use of anticoagulants; Z66 Do not resuscitate; Z86.73 Personal history of transient ischemic attack (TIA), and cerebral infarction without residual deficits; Z85.3 Personal history of malignant neoplasm of breast; Z88.1 Allergy status to other antibiotic agents; E86.0 Dehydration; T46.5X5A Adverse effect of other antihypertensive drugs, initial encounter; E87.6 Hypokalemia; Z96.641 Presence of right artificial hip joint; E78.5 Hyperlipidemia, unspecified; N18.3 Chronic kidney disease, stage 3 (moderate); D63.1 Anemia in chronic kidney disease; D50.9 Iron deficiency anemia, unspecified; I16.0 Hypertensive urgency
CPT/HCPCS: OP; 99231-AI; 99232-AI; 99233-AI; 99239; G0378; J0360; J0834; J2405; J7030

== ENCOUNTER 2020-01-10 11:25 | Inpatient (IN) | payer MEDICARE, MEDICAID ==
[~2020-01-10] VITALS: Ht 165.1 cm; Wt 58.0 kg
[~2020-01-10 11:25] MED LIST changes: +B COMPLEX & B121 TAB; +CATAPRES 0.1MG0.1 MG PO; +COZAAR 25MG25 MG/TAB PO; +ELIQUIS 2.5 PO; +LASIX 40MG40 MG/4 ML PO; +MULTI VITAMINS1 TAB PO; +NITRO-TIME2.5 MG PO; +NORMODYNE200 MG PO; +OMEGA-3 1000 MG1 CAP PO; +PACERONE100 MG PO; +PRIL40 PO; +SYNTHROID0.075 MG/T PO; +ZESTRIL 5MG5 MG PO; +ZOFRAN ODT4 MG PO; +[UNRECOGNIZED DRUG - OTHER]; +[UNRECOGNIZED DRUG - OTHER]; +[UNRECOGNIZED DRUG - OTHER]; +[UNRECOGNIZED DRUG - OTHER]
[2020-01-10 12:31] LABS: BASO # 0.1 (0.0-0.2); BASO % 0.8 % (0.0-2.0); EOS # 0.9 (0.0-0.7); EOS % 10.3 % (0-4.0); LYMPH # 0.6 (1.2-3.4); LYMPH % 7.6 % (20.0-51.0); MEAN CELL VOLUME 91 fl (80.0-100.0); MEAN CORPUSCULAR HGB CONC 32 g/dl (33.0-37.0); MEAN PLATELET VOLUME 10.6 fl (7.4-10.4); MONO # 0.7 (0.1-0.6); MONO % 8.8 % (1.7-9.3); PLATELET COUNT 169 K/mm3 (130-400); RED BLOOD COUNT 3.07 M/mm3 (4.10-5.30); REDCELL DISTRIBUTION WIDTH-CV 15.6 % (11.5-14.5)
[2020-01-10 12:41] LABS: ALBUMIN 3.7 gm/dL (3.5-5.0); BILIRUBIN,TOTAL 1.3 mg/dL (0.0-1.0); CALCIUM 8.4 mg/dL (8.4-10.2); CREATININE, serum 2.05 (0.52-1.25); POTASSIUM 4.3 mmol/L (3.4-5.0); TOTAL PROTEIN 6.9 gm/dL (6.4-8.2)
[2020-01-10 12:43] LABS: HEMATOCRIT 27.8 % (37.0-47.0); MEAN CORPUSCULAR HEMOGLOBIN 29 pg (27.0-31.0)
[2020-01-10 13:30] LABS: COLLECTION METHOD CLEAN CATCH
[2020-01-10 13:54] LABS: MUCOUS Present /lpf; PH 5 (5-8); SQUAMOUS EPITHELIAL None Seen /hpf; URINE APPEARANCE Clear; URINE BACTERIA None Seen /hpf; URINE BILIRUBIN Negative (NEGATIVE); URINE BLOOD 1+ (NEGATIVE); URINE COLOR Yellow; URINE GLUCOSE Negative (NEGATIVE); URINE KETONE Negative (NEGATIVE); URINE LEUKOCYTE ESTERASE Negative (NEGATIVE); URINE NITRATE Negative (NEGATIVE); URINE PROTEIN(semi-quant) Negative (NEGATIVE); URINE RBC 0-2 /hpf; URINE UROBILINOGEN Negative (NEGATIVE)
[2020-01-10 18:45] VITALS: BP 170/85; PULSE 73; TEMP 98
--- NOTE | 2020-01-10 18:48 | NUR ---
Pt in room, arrived late this afternoon, no C/O pain currently, on 2L via NC with no SOA, initial assessments completed.
--- NOTE | 2020-01-10 19:30 | NUR ---
Received report from Raymond. Patient is alert and oriented. She is independent with no assistive device. On right arm restrict. With INT on left AC. On O2 at 2lpm via NC. Denies pain.
[2020-01-10 21:39] VITALS: BP 143/56; PULSE 72; TEMP 98.8
--- NOTE | 2020-01-10 21:45 | NUR ---
Patient in bed, awake. Instructed patient that we need urine, stool and sputum specimen. Swabbed patient for respiratory virus panel. Informed patient that I will swab her again for the covid test after I verify to lab the correct swab kit to use.
[2020-01-10 23:22] VITALS: BP 160/85; PULSE 73; TEMP 98.4
--- NOTE | 2020-01-10 23:35 | NUR ---
Confirmed to lab what covid kit to use for the patient. Dry swab kit was used to be sent to [place]. Explained procedure to the patient and swabbed her on both nostrils.
[2020-01-11 04:59] VITALS: BP 148/67; PULSE 76; TEMP 99.7
--- NOTE | 2020-01-11 06:17 | NUR ---
Patient had an uneventful night. Denies pain. Afebrile. No shortness of breath noted.
[2020-01-11 08:07] LABS: BASO # 0.1 (0.0-0.2); BASO % 0.6 % (0.0-2.0); EOS # 1.3 (0.0-0.7); EOS % 15.4 % (0-4.0); GRAN # 6.1 (1.4-6.5); LYMPH # 0.5 (1.2-3.4); LYMPH % 6.2 % (20.0-51.0); MEAN CELL VOLUME 90 fl (80.0-100.0); MEAN CORPUSCULAR HGB CONC 33 g/dl (33.0-37.0); MEAN PLATELET VOLUME 10.5 fl (7.4-10.4); MONO # 0.5 (0.1-0.6); MONO % 6.2 % (1.7-9.3); PLATELET COUNT 177 K/mm3 (130-400); RED BLOOD COUNT 2.96 M/mm3 (4.10-5.30); REDCELL DISTRIBUTION WIDTH-CV 15.6 % (11.5-14.5); RETIC # 0.05 M/mm3 (0.02-0.16); RETIC % 1.7 % (0.5-3.52)
[2020-01-11 08:11] LABS: IRON,SERUM 28 ug/dL (35-150)
[2020-01-11 08:13] LABS: CALCIUM 8.3 mg/dL (8.4-10.2); CREATININE, serum 2.11 (0.52-1.25); MAGNESIUM 2.1 mg/dL (1.6-2.3); POTASSIUM 4.1 mmol/L (3.4-5.0)
[2020-01-11 08:21] LABS: TOTAL IRON BINDING CAPACITY 332 ug/dL (265-497)
[2020-01-11 08:28] LABS: HEMATOCRIT 26.5 % (37.0-47.0); HEMOGLOBIN 8.6 g/dl (12.5-16.0); MEAN CORPUSCULAR HEMOGLOBIN 29 pg (27.0-31.0)
[2020-01-11 10:27] VITALS: BP 150/56; PULSE 78; TEMP 99.1
--- NOTE | 2020-01-11 10:57 | NUR ---
Patient is alert and oriented. denies any pain. independent in the room. IV site on left hand appears red, Removed at this time. patient resting in bed at this time.
[2020-01-11 12:49] VITALS: BP 140/58; PULSE 72; TEMP 99.3
--- NOTE | 2020-01-11 12:55 | NUR ---
Software Asset Management Analyst contacted patient by phone to discuss discharge planning as patient is in contact isolation. Patient lives in [place] with her daughter, Milagros (ph#[phone]) [address]. Moore for primary care. Patient obtains medications from [facility] with no difficulties. Patient advised she normally drives to pick them up. Patient does not use any DME and is independent with ADLS. Patient reports that her two daughters, Milagros and Reina Alarcon are DPOA-HC although SW did not locate a copy in EMR. Patient states she plans to return home upon discharge. SW will continue to follow as needed.
[2020-01-11 17:22] VITALS: BP 151/54; PULSE 81; TEMP 98.4
--- NOTE | 2020-01-11 18:15 | NUR ---
covid19 result came back [address] Dr Daniel gave a verbal request to remove patient from isolation. room changed from 303 to 308 this evening. 22G IV placed on LF by warehouse handler.
--- NOTE | 2020-01-11 19:33 | NUR ---
Report received from DEBORAH Voss. Pt resting in room at this time.
[2020-01-11 20:18] VITALS: BP 147/58; PULSE 76; TEMP 98.4
--- NOTE | 2020-01-11 23:32 | NUR ---
Assessment completed. Pt resting in bed. Reports shortness of breath with exertion. Reports mild shortness of breath currently from repositioning in bed. Pt also reports mild chest pain with deep breaths. Pt denies pain at this time. No other abnormal findings noted. INT to left forearm intact and flushes easily. Will continue to monitor. Call light in reach.
[2020-01-12 00:48] VITALS: BP 147/52; PULSE 69; TEMP 97.9
[2020-01-12 05:00] VITALS: BP 149/54; PULSE 74; TEMP 98
--- NOTE | 2020-01-12 05:05 | NUR ---
Pt had uneventful shift. Pt has been resting in bed throughout night without complaints. IV antibiotics administered as ordered.
[2020-01-12 07:21] VITALS: BP 141/75; PULSE 77; TEMP 98.1
--- NOTE | 2020-01-12 09:40 | NUR ---
pt resting in bed. easily arrousable and no complaints of pain. Heart sounds normal, S1 and S2 present and no murmur. All lung sounds are clear, nonproductive cough. All pulses +2 and easily palpable. pt indpendent in the room, will continue to monitor.
[2020-01-12 12:01] VITALS: BP 158/60; PULSE 80; TEMP 98.2
--- NOTE | 2020-01-12 13:31 | NUR ---
Cut In Worker obtained DPOA-HC and Living Will from patient's daughterMilagros then placed forms on patient's chart. SW asked Hospitalist for PT/OT to be ordered. SW will continue to follow.
--- NOTE | 2020-01-12 15:27 | NUR ---
Anna, at [facility], reports that the patient has services through them and that they would be able to resume services for her upon discharge. SW to continue to follow.
[2020-01-12 16:34] VITALS: BP 155/56; PULSE 78; TEMP 98.9
--- NOTE | 2020-01-12 18:32 | NUR ---
Assessment completed. Pt resting in bed on 2 L/min O2 by NC. Reports mild shortness of breath with exertion. Denies pain or other needs at this time. No other abnormal findings noted. INT to left forearm intact, flushes well but positional. Will continue to monitor.
--- NOTE | 2020-01-12 19:14 | NUR ---
Report received from DEBORAH Swift. Pt resting in bed, denies needs at this time.
[2020-01-12 19:39] VITALS: BP 149/81; PULSE 74; TEMP 98.5
[2020-01-13] VITALS (12 sets, daily range): BP systolic 149–167; BP diastolic 48–80; PULSE 77–86; TEMP 98.1–99.6
--- NOTE | 2020-01-13 05:21 | NUR ---
Pt resting in bed without complaint this shift. Wearing NC with O2 at 2 L/min. Received IV antibiotics as ordered. Denies pain at this time.
[2020-01-13 06:09] LABS: BASO # 0.1 (0.0-0.2); BASO % 0.7 % (0.0-2.0); EOS # 1.3 (0.0-0.7); EOS % 15.6 % (0-4.0); GRAN # 5.9 (1.4-6.5); GRAN % 70.5 % (42.2-75.2); LYMPH # 0.6 (1.2-3.4); LYMPH % 7.3 % (20.0-51.0); MEAN CELL VOLUME 89 fl (80.0-100.0); MEAN CORPUSCULAR HGB CONC 33 g/dl (33.0-37.0); MEAN PLATELET VOLUME 10.7 fl (7.4-10.4); MONO # 0.5 (0.1-0.6); MONO % 5.4 % (1.7-9.3); PLATELET COUNT 208 K/mm3 (130-400); RED BLOOD COUNT 3.03 M/mm3 (4.10-5.30); REDCELL DISTRIBUTION WIDTH-CV 15.5 % (11.5-14.5)
[2020-01-13 06:10] LABS: HEMOGLOBIN 8.9 g/dl (12.5-16.0); MEAN CORPUSCULAR HEMOGLOBIN 29 pg (27.0-31.0)
[2020-01-13 06:28] LABS: ALBUMIN 3.7 gm/dL (3.5-5.0); CREATININE, serum 1.93 (0.52-1.25); MAGNESIUM 2.3 mg/dL (1.6-2.3); PHOSPHOROUS 3.4 mg/dL (2.5-4.5); POTASSIUM 4.2 mmol/L (3.4-5.0); TOTAL PROTEIN 7.2 gm/dL (6.4-8.2)
--- NOTE | 2020-01-13 08:15 | NUR ---
Pt assessment complete. Pt laying in bed listening to her audible book. She is A/O x4. Her breathing is currently even and unlabored on 2L O2 via NC. Pt reports fairly frequent SOB, denies coughing up any phlegm. She currently denies any pain. No N/V. She has no needs at this time. Call light within reach.
--- NOTE | 2020-01-13 11:51 | NUR ---
Blood transfusion started at this time. S/Sx's of reaction discussed with patient. This nurse will remain at bedside for the first fifteen minutes of the infusion. Pt up to the bathroom prior to transfusion starting. As soon as patient was back to bed vitals were attained and O2 ~76% on 2L O2 via NC. Pt boosted to 4L O2 via NC, O2 sats improved to 94%. Pt tachypneic but improved after resting. Now 94% on 3L O2 via NC.
--- NOTE | 2020-01-13 14:56 | NUR ---
Rn Private Duty attended clinical rounds with the team and patient's daughterMilagros was on speaker phone. SW followed up with patient to discuss home health. Patient is agreeable to continue with [facility]. MARLENI contacted Sushila and faxed referral. SW contacted patient's daughter, Milagros to provide update. SW will continue to follow.
--- NOTE | 2020-01-13 19:00 | NUR ---
Pt rec'd one unit of blood, tolerated this well. Had increase SOB on exertion with low O2 sat's, STEFANO Jauregui made aware. Pt reports improvement in breathing since increase in O2. New IV started to LFA. Pt does not want SCD's on at this time. Report given to Roge.
--- NOTE | 2020-01-13 19:07 | NUR ---
Report received from DEBORAH Swift. Pt resting in bed, denies needs at this time.
--- NOTE | 2020-01-13 20:47 | NUR ---
Assessment completed. Pt resting in bed on 4 L/min O2 NC. Reports no shortness of breath while resting in bed but does get short of breath when ambulating. Denies pain or other concerns at this time. INT to left wrist intact, flushes easily. No other abnormal findings noted. Will continue to monitor.
[2020-01-14 00:03] VITALS: BP 142/60; PULSE 72; TEMP 98.1
[2020-01-14 04:00] VITALS: BP 134/51; PULSE 66; TEMP 99
--- NOTE | 2020-01-14 05:32 | NUR ---
Pt sleeping in bed throughout shift. No complaints of pain. Reports mild shortness of breath when ambulating to restroom. IV antibiotics administered as ordered.
[2020-01-14 07:27] LABS: BASO # 0.1 (0.0-0.2); BASO % 0.8 % (0.0-2.0); EOS # 1.2 (0.0-0.7); EOS % 15.7 % (0-4.0); GRAN # 5.3 (1.4-6.5); GRAN % 69.4 % (42.2-75.2); LYMPH # 0.6 (1.2-3.4); LYMPH % 7.5 % (20.0-51.0); MEAN CELL VOLUME 87 fl (80.0-100.0); MEAN CORPUSCULAR HGB CONC 33 g/dl (33.0-37.0); MEAN PLATELET VOLUME 10.4 fl (7.4-10.4); MONO # 0.5 (0.1-0.6); MONO % 6.3 % (1.7-9.3); PLATELET COUNT 197 K/mm3 (130-400); RED BLOOD COUNT 3.32 M/mm3 (4.10-5.30); REDCELL DISTRIBUTION WIDTH-CV 15.8 % (11.5-14.5)
[2020-01-14 07:28] LABS: HEMATOCRIT 28.9 % (37.0-47.0); HEMOGLOBIN 9.6 g/dl (12.5-16.0); MEAN CORPUSCULAR HEMOGLOBIN 29 pg (27.0-31.0)
--- NOTE | 2020-01-14 07:40 | NUR ---
RECIEVED BEDSIDE REPORT. PATIENT WAS RESTING IN BED AT THIS TIME.
[2020-01-14 07:43] LABS: ALBUMIN 3.5 gm/dL (3.5-5.0); BILIRUBIN,TOTAL 0.9 mg/dL (0.0-1.0); CALCIUM 8.6 mg/dL (8.4-10.2); CREATININE, serum 1.97 (0.52-1.25); POTASSIUM 3.9 mmol/L (3.4-5.0); TOTAL PROTEIN 6.7 gm/dL (6.4-8.2)
[2020-01-14 08:06] VITALS: BP 160/81; PULSE 102; TEMP 98.9
--- NOTE | 2020-01-14 09:12 | NUR ---
PATIENT RESTING IN BED, ALERT AND ORIENTED. DENIES ANY PAIN OR NAUSEA. IV SITE FLUSHES EASILY AND DENIES ANY PAIN AT THE SITE. NO COMPLAINTS AT THIS TIME, WILL CONTINUE TO MONITOR.
[2020-01-14 12:00] VITALS: BP 139/79; PULSE 103; TEMP 98
--- NOTE | 2020-01-14 13:45 | NUR ---
Tele called, pt in afib. Pt checked on, resting in bed with eyes closed, awakened easily. pt denies chest pain, palpitations, appears asymptomatic. STEFANO Jauregui notified, EKG ordered, RT notified. No further needs at this time.
--- NOTE | 2020-01-14 14:30 | NUR ---
notified that tele showed pt was in A-fib. patient denied any palpitations or pain. pt was resting in bed and has no symptoms. will continue to monitor.
--- NOTE | 2020-01-14 16:48 | NUR ---
Dye House Worker followed up with patient about possible need for home oxygen. Patient states she will talk with her daughter maximino about where to order it from if needed. SW to continue to follow.
[2020-01-14 16:59] VITALS: BP 128/65; PULSE 108; TEMP 97.8
[2020-01-14 18:52] VITALS: BP 130/69; PULSE 107; TEMP 100
--- NOTE | 2020-01-14 23:00 | NUR ---
PT IN BED WITH HOB ELEVATED TO 45 DEGREE ANGLE, A/O X4, DENIES PAIN OR DISCOMFORT, AND HAS CALL LIGHT WITHIN REACH.
[2020-01-15] VITALS (7 sets, daily range): BP systolic 130–142; BP diastolic 49–88; PULSE 59–108; TEMP 97.6–99.8
--- NOTE | 2020-01-15 06:23 | NUR ---
PT HAD NO ISSUES DURING THE NIGHT. PT AMBULATED TO BATHROOM AND BACK. PT'S IV IN LEFT FOREARM INFILTRATED. REPLACED IV IN LEFT FOREARM WITH 22G. DENIES PAIN OR DISCOMFORT NO FURTHER NEEDS, CALL LIGHT WITHIN REACH.
[2020-01-15 07:42] LABS: HEMOGLOBIN 10.2 g/dl (12.5-16.0); MEAN CELL VOLUME 87 fl (80.0-100.0); MEAN CORPUSCULAR HEMOGLOBIN 29 pg (27.0-31.0); MEAN CORPUSCULAR HGB CONC 33 g/dl (33.0-37.0); MEAN PLATELET VOLUME 10.6 fl (7.4-10.4); PLATELET COUNT 222 K/mm3 (130-400); RED BLOOD COUNT 3.56 M/mm3 (4.10-5.30); REDCELL DISTRIBUTION WIDTH-CV 15.7 % (11.5-14.5)
[2020-01-15 07:58] LABS: HEMATOCRIT 30.9 % (37.0-47.0)
[2020-01-15 08:04] LABS: ALBUMIN 3.7 gm/dL (3.5-5.0); BILIRUBIN,TOTAL 0.7 mg/dL (0.0-1.0); CALCIUM 8.8 mg/dL (8.4-10.2); CREATININE, serum 1.81 (0.52-1.25); POTASSIUM 3.5 mmol/L (3.4-5.0)
--- NOTE | 2020-01-15 08:13 | NUR ---
Pt being cared for by this nurses Janet lópez RN.
--- NOTE | 2020-01-15 08:19 | NUR ---
Pt resting in bed. no complaints of pain or discomfort. IV left forearm flushes easily with no pain.
[2020-01-15 08:43] LABS: BAND 6 % (0-10); EOSINOPHIL 22 % (0-4); LYMPHOCYTE 5 % (20.0-51.0); NEUTROPHILS 63 % (42.0-75.2); PLATELET ESTIMATE NORMAL (NORMAL)
--- NOTE | 2020-01-15 10:55 | NUR ---
Several visit attempts; Patient resting, Traffic Warehouse Supervisor left Prayer Card and information regarding the availability of spiritual care at our hospital.
--- NOTE | 2020-01-15 11:18 | NUR ---
Assessment charted. Pt heart rate was tachycardic and irregular, denied any chest pain or shortness of breath. no palpitations. Lung sounds were clear and normal. Pt reports cough that is productive with yellow moderate sputum. no complaints of pain or weakness. Pt resting in bed comfortably.
--- NOTE | 2020-01-15 11:21 | NUR ---
Rounding with Dr. Leal/MARLENI Hernandez/Pharmacy [facility]/TRACEY Vega. Pt called daughter Milagros and she was included in rounding discussion. Reviewed medications/possible CV on Saturday/Antibiotic Tx. Daughter requested an IS. Dr. Leal answered all questions and pt/daughter voiced understanding.
--- NOTE | 2020-01-15 14:21 | NUR ---
Retail Advisor attended clinical rounds with the team and patient will not discharge today. Patient to have EKG and still on 3 liters of oxygen. Patient hopes to not require oxygen before discharge. SW contacted patient's daughter, Milagros to touch base before the weekend. MARLENI also contacted Sushila at [facility] to provide update. MARLENI will continue to follow.
[2020-01-16 03:19] VITALS: BP 135/50; PULSE 61; TEMP 98.3
--- NOTE | 2020-01-16 05:35 | NUR ---
PATIENT HAD A PRETTY UNEVENTFUL NIGHT. IV WAS REPLACED THE OTHER ONE INFILTRATED. PATIENT HAD SOME PERIODS OF REST. PATIENT HAS NOT REPORTED ANY PAIN FOR THIS NURSE. PATIENT HAS BEEN UP TO THE BATHROOM INDEPDENTLY IN HER ROOM A COUPLE OF TIMES. WILL CONTINUE TO MONITOR. WILL PASS OFF TO DAY SHIFT.
[2020-01-16 06:56] LABS: BASO # 0.1 (0.0-0.2); BASO % 0.8 % (0.0-2.0); EOS # 1.7 (0.0-0.7); EOS % 18.7 % (0-4.0); GRAN # 5.9 (1.4-6.5); GRAN % 66.5 % (42.2-75.2); LYMPH # 0.6 (1.2-3.4); MEAN CELL VOLUME 87 fl (80.0-100.0); MEAN CORPUSCULAR HGB CONC 32 g/dl (33.0-37.0); MEAN PLATELET VOLUME 10.8 fl (7.4-10.4); MONO # 0.6 (0.1-0.6); MONO % 6.7 % (1.7-9.3); PLATELET COUNT 232 K/mm3 (130-400); RED BLOOD COUNT 3.43 M/mm3 (4.10-5.30); REDCELL DISTRIBUTION WIDTH-CV 15.5 % (11.5-14.5)
[2020-01-16 07:16] LABS: ALBUMIN 3.6 gm/dL (3.5-5.0); BILIRUBIN,TOTAL 0.5 mg/dL (0.0-1.0); CALCIUM 8.6 mg/dL (8.4-10.2); CREATININE, serum 2.18 (0.52-1.25); MAGNESIUM 1.7 mg/dL (1.6-2.3); POTASSIUM 3.6 mmol/L (3.4-5.0); TOTAL PROTEIN 6.8 gm/dL (6.4-8.2)
[2020-01-16 07:27] VITALS: BP 145/57; PULSE 59; TEMP 98.8
[2020-01-16 07:39] LABS: HEMATOCRIT 29.8 % (37.0-47.0); HEMOGLOBIN 9.6 g/dl (12.5-16.0); MEAN CORPUSCULAR HEMOGLOBIN 28 pg (27.0-31.0)
--- NOTE | 2020-01-16 09:11 | NUR ---
VITALS REVIEWED, MEDICATIONS GIVEN, ASSESSMENT PERFORMED, IV SITE HAD NO REDNESS, DRAINAGE, EDEMA BUT IT WAS HARD TO FLUSH INITIALLY. R EXTREMITY RESTRICTION IN PLACE. PT SLEEPING WHEN INTIALLY ENTERING AND BREAKFAST UNTOUCHED AT BEDSIDE. PT DENIES PAIN OR DISCOMFORT. NO OTHER NEEDS AT THIS TIME.
[2020-01-16 11:37] VITALS: BP 139/49; PULSE 61; TEMP 98.1
[2020-01-16 15:44] VITALS: BP 137/48; PULSE 63; TEMP 98.1
--- NOTE | 2020-01-16 17:33 | NUR ---
UNEVENTFUL SHIFT, DID NOT COMPLAIN OF ANY PAIN OR DISCOMFORT. PT PLEASANT DURING SHIFT
[2020-01-16 19:35] VITALS: BP 142/52; PULSE 63; TEMP 99.1
--- NOTE | 2020-01-16 20:30 | NUR ---
Assessment complete. Resting in bed, watching television. Requests sandwich, stating that dinner was"too much, I just want something simple" [place] and milk provided. Denies pain/ discomfort. Denies other needs at this time.
[2020-01-17] VITALS (8 sets, daily range): BP systolic 97–1141; BP diastolic 48–69; PULSE 60–69; TEMP 97.7–98.7
--- NOTE | 2020-01-17 02:47 | NUR ---
RT increased 02 to 3L per NC to maintain sat 91-94%
--- NOTE | 2020-01-17 03:49 | NUR ---
UPON ARRIVING IN PATIENTS ROOM WITH RN, SPO2 WAS 80% ON 1L. CHECKED WITH ANOTHER MACHINE AND STILL READ CORRECTLY. NEEDED TO INCREASES O2 3L IN ORDER TO GET A SPO2 OF 92.
--- NOTE | 2020-01-17 05:33 | NUR ---
COUGHED AND PRODUCED SMALL AMT OF BLOODY SPUTUM. PT STATED THAT SHE HAD COUGHED UP SMALL AMOUNTS OF "DARK" PHLEGM INTERMITTENTLY THROUGHOUT THE DAY AND EVENING.
[2020-01-17 06:14] LABS: BASO # 0.1 (0.0-0.2); BASO % 0.7 % (0.0-2.0); EOS # 1.3 (0.0-0.7); EOS % 12.2 % (0-4.0); GRAN % 73.4 % (42.2-75.2); LYMPH # 0.7 (1.2-3.4); LYMPH % 6.2 % (20.0-51.0); MEAN CELL VOLUME 87 fl (80.0-100.0); MEAN CORPUSCULAR HGB CONC 32 g/dl (33.0-37.0); MONO # 0.8 (0.1-0.6); MONO % 6.9 % (1.7-9.3); PLATELET COUNT 250 K/mm3 (130-400); RED BLOOD COUNT 3.26 M/mm3 (4.10-5.30); REDCELL DISTRIBUTION WIDTH-CV 15.1 % (11.5-14.5)
[2020-01-17 06:19] LABS: HEMATOCRIT 28.2 % (37.0-47.0); HEMOGLOBIN 9.1 g/dl (12.5-16.0); MEAN CORPUSCULAR HEMOGLOBIN 28 pg (27.0-31.0)
[2020-01-17 06:23] LABS: ALBUMIN 3.7 gm/dL (3.5-5.0); BILIRUBIN,TOTAL 0.8 mg/dL (0.0-1.0); CALCIUM 8.8 mg/dL (8.4-10.2); CREATININE, serum 2.58 (0.52-1.25); MAGNESIUM 2.5 mg/dL (1.6-2.3); POTASSIUM 3.9 mmol/L (3.4-5.0); TOTAL PROTEIN 7.2 gm/dL (6.4-8.2)
--- NOTE | 2020-01-17 08:30 | NUR ---
PT SATTING 92% ON 3L. PT PLEASANT, AOX4, FRESH WATER BROUGHT IN, VITALS REVIEWED, MEDICATIONS GIVEN, ASSESSMENT PERFORMED. PT REPORTING BROWN IN SPUTUM, PT SOB WITH EXERTION, UL LOBITO CLEAR, BB DI. PT INDEPENDENT IN ROOM. DENIES PAIN/DISCOMFORT. NO OTHER NEEDS AT THIS TIME.
--- NOTE | 2020-01-17 15:53 | NUR ---
PT REPORTS COUGHING UP BLOOD. WHEN VISUALIZED IT WAS RED IN COLOR AND A MUCOUSY TEXTURE. PT DENIES PAIN OR DISCOMFORT. BP LOW DURING VITALS, WILL RETAKE TO REASSESS.
--- NOTE | 2020-01-17 15:58 | NUR ---
BP REASSESSED, BACK TO BASELINE VITALS
--- NOTE | 2020-01-17 16:07 | NUR ---
DR. BOYKIN INFORMED OF BLOOD TINGED SPUTUM, STATES TO MONITOR AT THIS TIME, IF WORSENS TO LET HIM KNOW.
--- NOTE | 2020-01-17 17:12 | NUR ---
PT COUGHING UP BLOOD TINGED SPUTUM, PT AOX4, PT DENIES PAIN OR DISCOMFORT, PT STILL ON OXYGEN, PT HAS NOT REPORTED SOA ON EXERTION SINCE THIS MORNING. PT WORKED WITH PT. PT HAS NOT BEEN EATING MEALS. NEPHROLOGY CONSULTED TODAY. NO OTHER NEEDS AT THIS TIME.
--- NOTE | 2020-01-17 20:30 | NUR ---
Patient assessed at this time. Alert and oriented x 4, and able to make needs known. Denies having pain and discomfort at this time. Peripheral INT to left forearm flushed. Site is without redness, warmth, swelling, and pain. Does report SOB with exertion. Respirations even and unlabored. On oxygen at 4 L/min via NC. LS CTA in left lung ramsey, diminished in right. Reports productive cough with blood tinged sputum. Did not have any to assess. Enocouraged to keep so that staff could observe it, and voiced understanding. HRR. Telemetry in place: sinus. Capillary refill less than 3 seconds. Non-tenting skin turgor. BSAx4. Reports feeling like she is starting to get constipated. Given scheduled colace. No edema. Went over lab results with family as requested. Voices no further questions, needs, or concerns at this time. Resting in bed with call light within reach.
[2020-01-18 03:40] VITALS: BP 149/50; PULSE 65; TEMP 98.4
--- NOTE | 2020-01-18 05:05 | NUR ---
Patient has been resting in bed with call light within reach. Has denied having pain and discomfort when asked. Voices no questions, needs, or concerns. Continues to wear oxygen at 4 L/min via NC. Continues to have dyspnea with exertion. Continues to report bloody sputum.
[2020-01-18 07:22] LABS: BASO # 0.1 (0.0-0.2); BASO % 0.8 % (0.0-2.0); EOS % 11.5 % (0-4.0); GRAN # 6.7 (1.4-6.5); LYMPH # 0.6 (1.2-3.4); LYMPH % 6.7 % (20.0-51.0); MEAN CELL VOLUME 86 fl (80.0-100.0); MEAN CORPUSCULAR HGB CONC 33 g/dl (33.0-37.0); MONO # 0.6 (0.1-0.6); MONO % 6.4 % (1.7-9.3); PLATELET COUNT 237 K/mm3 (130-400); RED BLOOD COUNT 3.09 M/mm3 (4.10-5.30); REDCELL DISTRIBUTION WIDTH-CV 15.4 % (11.5-14.5)
[2020-01-18 07:25] LABS: HEMATOCRIT 26.7 % (37.0-47.0); HEMOGLOBIN 8.8 g/dl (12.5-16.0); MEAN CORPUSCULAR HEMOGLOBIN 28 pg (27.0-31.0)
[2020-01-18 07:30] VITALS: BP 138/49; PULSE 63; TEMP 98.2
[2020-01-18 07:32] LABS: ALBUMIN 3.7 gm/dL (3.5-5.0); BILIRUBIN,TOTAL 1.1 mg/dL (0.0-1.0); CALCIUM 8.9 mg/dL (8.4-10.2); CREATININE, serum 2.67 (0.52-1.25); MAGNESIUM 2.5 mg/dL (1.6-2.3); POTASSIUM 3.8 mmol/L (3.4-5.0); TOTAL PROTEIN 7.1 gm/dL (6.4-8.2); URIC ACID 7.8 mg/dL (2.5-6.2)
--- NOTE | 2020-01-18 09:51 | NUR ---
Pt resting in bed, no complaints of pain. states some feeling of nausea. pt reports coughing up bloody sputum in the mornings. Lung sounds are clear and denies chest pain or shortness of breath. IV site in left forearm does not flush and leaks out onto the arm. pt not recieving any medications IV at this time, will continue to monitor.
[2020-01-18 11:20] VITALS: BP 141/50; PULSE 56; TEMP 98.6
--- NOTE | 2020-01-18 14:31 | NUR ---
Met with pt for CHF education. Pt called her daughter, Milagros, and had her on speaker phone while we spoke. Milagros states that CHF is a new diagnosis for her mother from around November. Pt states that she follows a pretty healthy life-style at baseline. Pt previously received a CHF Binder from the hospital but it looks different from the one this CM provided. Pt also provided with a CHF Zone sheet. Pt and Milagros voiced concern with pt's increased O2 requirement and that pt is feeling worse from last week. Primary nurse informed of their concerns. Will follow up with pt for futher CHF teaching closer to discharge.
[2020-01-18 15:51] VITALS: BP 140/52; PULSE 65; TEMP 98.2
--- NOTE | 2020-01-18 18:18 | NUR ---
Pt has been resting in bed today, hasn't wanted to eat very much. was provided snacks that she asked for. complained of nausea this morning after breakfast, but no complaints the rest of the day. pt is currently visiting with her daughter.
[2020-01-18 19:29] VITALS: BP 134/48; PULSE 70; TEMP 98.3
--- NOTE | 2020-01-18 19:40 | NUR ---
Patient assessed at this time. Alert and oriented x 4, and able to make needs known. Denies having pain and discomfort at this time. Peripheral INT to left hand flushed. Site is without redness, warmth, swelling, and pain. Reports continued SOB with exertion. Continues on oxygen at 4 L/min via NC. LS CTA in left lung ramsey and right upper lobe, but diminished in right lower lobe. Reports cough with blood tinged sputum. HRR. Telemetry in place: normal sinus. Capillary refill less than 3 seconds. Non-tenting skin turgor. BSAx4. Abdomen soft and non-tender. No edema. Voices no questions, needs, or concerns at this time. Resting in bed with call light within reach.
[2020-01-19] VITALS (7 sets, daily range): BP systolic 135–154; BP diastolic 46–53; PULSE 53–68; TEMP 97.5–98.4
--- NOTE | 2020-01-19 05:25 | NUR ---
Patient has been resting in bed with call light within reach. Has denied having pain and discomfort. Voices no questions, needs, or concerns at this time.
[2020-01-19 07:13] LABS: BASO # 0.1 (0.0-0.2); EOS # 1.1 (0.0-0.7); EOS % 11.6 % (0-4.0); GRAN # 6.6 (1.4-6.5); GRAN % 72.4 % (42.2-75.2); LYMPH # 0.6 (1.2-3.4); MEAN CELL VOLUME 86 fl (80.0-100.0); MEAN CORPUSCULAR HGB CONC 32 g/dl (33.0-37.0); MEAN PLATELET VOLUME 11.4 fl (7.4-10.4); MONO # 0.7 (0.1-0.6); MONO % 7.1 % (1.7-9.3); PLATELET COUNT 248 K/mm3 (130-400); RED BLOOD COUNT 2.91 M/mm3 (4.10-5.30); REDCELL DISTRIBUTION WIDTH-CV 15.2 % (11.5-14.5)
[2020-01-19 07:18] LABS: HEMOGLOBIN 8.1 g/dl (12.5-16.0); MEAN CORPUSCULAR HEMOGLOBIN 28 pg (27.0-31.0)
[2020-01-19 07:27] LABS: CALCIUM 8.6 mg/dL (8.4-10.2); CREATININE, serum 2.35 (0.52-1.25); POTASSIUM 4.1 mmol/L (3.4-5.0)
--- NOTE | 2020-01-19 09:13 | NUR ---
This nurse notified of pt "throwing up" and "spitting up blood clots". Pt laying in bed, blood noted in basin, tissues w/ blood also present. Daughter at bedside. Per pt and daughter, pt has been coughing up blood since the weekend. Pt states she hasn't had much of an appetite. Provided w/ ensure, states she would drink that. Refused anti nausea medication. Will notify hospitalist.
--- NOTE | 2020-01-19 09:22 | NUR ---
pt attempted to drink ensure, threw up, notified this nurse, requesting anti nausea med. Zofran provided per aug.
--- NOTE | 2020-01-19 11:01 | NUR ---
Insulation Cutter attended clinical rounds with the team. Following rounds, SW met with patient and patient's daughter, Milagros to review discharge plan. Patient would still like to return home with [facility] once medically cleared for discharge. MARLENI contacted Sushila at [facility] and faxed updates. Patient still requiring oxygen. MARLENI will continue to follow.
--- NOTE | 2020-01-19 11:53 | NUR ---
Pt resting in bed, complains of shortness of breath and nausea. gave zofran per orders. productive cough with red tinged moderate sputum. Right lower lobes are diminished, all other lobes are clear. potassium was 4.1, no replacement needed per protocol. no other complaints at this time.
--- NOTE | 2020-01-19 20:00 | NUR ---
Patient assessed at this time. Alert and oriented x 4, and able to make needs known. Denies having pain and discomfort at this time. Peripheral INT to left hand. Denies having SOB and dyspnea at rest, but states she gets very SOB with exertion. LS CTA. Respirations even and unlabored. On oxygen at 5 L/min via NC. HRR. Telemetry in place. Capillary refill less than 3 seconds. Non-tenting skin turgor. BSAx4. Abdomen soft and non-tender. No edema. Voices no questions, needs, or concerns at this time. Resting in bed with call light within reach.
[2020-01-20] VITALS (14 sets, daily range): BP systolic 134–156; BP diastolic 48–63; PULSE 60–68; TEMP 97–98.8
--- NOTE | 2020-01-20 06:15 | NUR ---
Patient has been resting in bed with call light within reach. Continues on oxygen at 5 L/min via NC. Denies having pain and discomfort at this time. Voices no questions, needs, or concerns at this time. Has been NPO since midnight for HD catheter placement today.
[2020-01-20 07:04] LABS: BASO # 0.1 (0.0-0.2); BASO % 0.9 % (0.0-2.0); EOS # 1.3 (0.0-0.7); EOS % 11.9 % (0-4.0); GRAN # 7.8 (1.4-6.5); GRAN % 73.8 % (42.2-75.2); LYMPH # 0.6 (1.2-3.4); LYMPH % 5.8 % (20.0-51.0); MEAN CELL VOLUME 87 fl (80.0-100.0); MEAN CORPUSCULAR HGB CONC 33 g/dl (33.0-37.0); MEAN PLATELET VOLUME 11.2 fl (7.4-10.4); MONO # 0.6 (0.1-0.6); MONO % 6.1 % (1.7-9.3); PLATELET COUNT 243 K/mm3 (130-400); RED BLOOD COUNT 2.61 M/mm3 (4.10-5.30); REDCELL DISTRIBUTION WIDTH-CV 15.4 % (11.5-14.5)
[2020-01-20 07:05] LABS: HEMATOCRIT 22.8 % (37.0-47.0); HEMOGLOBIN 7.4 g/dl (12.5-16.0); MEAN CORPUSCULAR HEMOGLOBIN 28 pg (27.0-31.0)
[2020-01-20 07:25] LABS: CALCIUM 8.7 mg/dL (8.4-10.2); CREATININE, serum 2.36 (0.52-1.25); POTASSIUM 4.4 mmol/L (3.4-5.0)
--- NOTE | 2020-01-20 10:14 | NUR ---
IV access lost, catheter tip out, attempted to change dressing. New IV started, 22g to LFA by Argelia CABRERA house sup. No issues noted, good blood return and flushes well. Pt on 4.5L NC, satting low 90s. Pt down for CT at this time by WC.
--- NOTE | 2020-01-20 12:31 | NUR ---
Pt resting in bed this morning, daughter at the bedside. pt states nausea, gave zofran per orders. pt does not have much of an appetite and complains of SOB when walking. denies chest pain, heart sounds regular, S1 and S2 present. Right lung sounds diminished, Left lung sounds were clear. pt on 5L of oxygen. productive cough with dark red sputum, monderate amount. no other complaints.
--- NOTE | 2020-01-20 13:31 | NUR ---
Pt down to dialysis. Pt went down for dialysis cath placement around 1130, back to floor at 1300. Pt A&O, awake, denies pain. RIJ dialysis cath in place, covered w/ dressing, CDI. No issues noted. Pt has vanco running to LFA IV w/o issue, started during cath placement procedure. Pt escorted to dialysis in bed. Daughter at bedside and updated on POC. All questions answered.
[2020-01-20 14:06] LABS: HEMATOCRIT 22.6 % (37.0-47.0); HEMOGLOBIN 7.3 g/dl (12.5-16.0)
--- NOTE | 2020-01-20 16:56 | NUR ---
BLOOD TRANSFUSION STARTED RUNNING AT 60 ML AN HOUR. THIS NURSE REMAINED AT THE BEDSIDE FOR THE FIRST 15 MINUTES. VITAL SIGNS RECORDED BEFORE TRANSFUSION WAS STARTED.
--- NOTE | 2020-01-20 17:05 | NUR ---
Pt still doing well, vital signs still stable. remained at the bedside with pt. transfusion running at 60 mL per hour. noticed that dressing on the dialysis catheter had blood pooling, Tori hemodialysis charge nurse was still here. she assessed the site and notified Jacqueline. Jacqueline asked her to change the dressing and reinforce.
--- NOTE | 2020-01-20 17:17 | NUR ---
vital signs still stable, rate increased to 90. pt tolerating well. dialysis catheter dressing changed and reinforced.
--- NOTE | 2020-01-20 18:13 | NUR ---
Pt laying in bed, blood transfusing at 90 mL an hour. tolerating fine, O2 sat ranging from 89 to 92, pt bumped up to 6 L. blood rate increased to 100 mL per hour. will continue to monitor.
--- NOTE | 2020-01-20 19:31 | NUR ---
Pt still receiving blood transfusion at 100 ml/hr, tolerating well, no complications. VSS. Pt on 6L NC, satting 96%. O2 decreased to 5L NC. Pt sleeping in bed. Doesn't appear to be in distress. [facility] dialysis cath site still CDI from reinforcement w/ DEBORAH Matson. No further needs expressed. Report given to DEBORAH Gallego.
--- NOTE | 2020-01-20 20:15 | NUR ---
Pt assessment completed and documented. Pt resting in bed at this time listening to a book on her ipad. Pt alert and oritented x3. Denies pain. Dialysis cath covered with gauze and tape. INT to left forearm CDI. Pt denies any other needs. Call light within reach.
[2020-01-21] VITALS (9 sets, daily range): BP systolic 153–179; BP diastolic 53–67; PULSE 64–74; TEMP 98–99.2
[2020-01-21 00:18] LABS: HEPATITIS B SURFACE ANTIBODY <2.0 (()); HEPATITIS B SURFACE ANTIGEN Negative (Negative); HEPATITIS C VIRUS ANTIBODY Negative (Negative)
--- NOTE | 2020-01-21 05:13 | NUR ---
Pt had uneventful shift. Pt rested well in bed overnight. INT to left forearm CDI. Dressing to dialysis cath CDI. No complaints of pain overnight. PT denies any other needs. Call light within reach
[2020-01-21 06:47] LABS: BASO # 0.1 (0.0-0.2); BASO % 0.6 % (0.0-2.0); EOS % 8.8 % (0-4.0); GRAN # 8.7 (1.4-6.5); GRAN % 78.6 % (42.2-75.2); LYMPH # 0.5 (1.2-3.4); LYMPH % 4.9 % (20.0-51.0); MEAN CELL VOLUME 88 fl (80.0-100.0); MEAN CORPUSCULAR HGB CONC 33 g/dl (33.0-37.0); MEAN PLATELET VOLUME 11.1 fl (7.4-10.4); MONO # 0.6 (0.1-0.6); MONO % 5.7 % (1.7-9.3); PLATELET COUNT 274 K/mm3 (130-400); RED BLOOD COUNT 2.92 M/mm3 (4.10-5.30); REDCELL DISTRIBUTION WIDTH-CV 15.1 % (11.5-14.5)
[2020-01-21 06:50] LABS: HEMATOCRIT 25.7 % (37.0-47.0); HEMOGLOBIN 8.4 g/dl (12.5-16.0); MEAN CORPUSCULAR HEMOGLOBIN 29 pg (27.0-31.0)
[2020-01-21 07:03] LABS: CALCIUM 8.7 mg/dL (8.4-10.2); CREATININE, serum 1.87 (0.52-1.25); POTASSIUM 4.1 mmol/L (3.4-5.0)
[2020-01-21 07:19] LABS: C-REACTIVE PROTEIN 18.3 mg/dL (0.0-0.9)
--- NOTE | 2020-01-21 08:45 | NUR ---
PT TRANSFERED TO DIALYSIS @ 0845 VIA WHEELCHAIR. HOLD AM MEDS UNTIL POST DIALYSIS PER DIALYZING NURSE. PT AOX4. STATES MILD ABD PAIN FROM NO BM IN >3 DAYS. WILL REASSESS
--- NOTE | 2020-01-21 09:39 | NUR ---
blood given to dialysis nurse for transfusion
--- NOTE | 2020-01-21 12:34 | NUR ---
VS ELEVATED POST DIALYSIS. SYSTOLIC >170 [address]IA[address] <80. DR CARRASQUILLO CHANGED BP MEDS. DR PEREZ AT BEDSIDE. PT ASSYMPTOMATIC. WILL RECHECK.
--- NOTE | 2020-01-21 13:09 | NUR ---
TB skin test given to patient at 1215 in left forearm; Lot [id number], Exp. 02/27, wheal formation noted.
--- NOTE | 2020-01-21 16:17 | NUR ---
Sheet Mill Supervisor followed up with patient and patient's daughter to review discharge plan. SW inquired if patient would have any interest in post acute rehab. Patient's daughter, Milagros reports that last year patient was at [facility] and they had a poor experience. Cesar states she would not want patient to return there. At this point in time, patient's plan is still to return home with [facility]. Patient is not interested in post acute rehab for the time being. SW will continue to follow.
--- NOTE | 2020-01-21 20:00 | NUR ---
At time of assessment, patient is laying in bed, stating she has been trying to have a bowel movement since this afternoon. She does not complain of pain or nausea but does state she is uncomfortable in her abdominal area. Bowel sounds are audible in all quadrants. Lungs are clear in upper lobes with fine crackles in the bases. No edema is present. Patient currently has no IV access, per physician orders. Will continue to monitor.
[2020-01-22 03:59] VITALS: BP 150/58; PULSE 60; TEMP 98.7
--- NOTE | 2020-01-22 04:42 | NUR ---
Patient has had a restful night. She finally had a bowel movement, which relieved her abdominal discomfort. No new concerns.
[2020-01-22 08:12] VITALS: BP 142/64; PULSE 113; TEMP 98.2
[2020-01-22 09:10] LABS: MEAN CELL VOLUME 88 fl (80.0-100.0); MEAN CORPUSCULAR HGB CONC 32 g/dl (33.0-37.0); MEAN PLATELET VOLUME 11.1 fl (7.4-10.4); PLATELET COUNT 277 K/mm3 (130-400); RED BLOOD COUNT 3.25 M/mm3 (4.10-5.30); REDCELL DISTRIBUTION WIDTH-CV 16.1 % (11.5-14.5)
[2020-01-22 09:13] LABS: HEMATOCRIT 28.7 % (37.0-47.0); HEMOGLOBIN 9.2 g/dl (12.5-16.0); MEAN CORPUSCULAR HEMOGLOBIN 28 pg (27.0-31.0)
[2020-01-22 09:25] LABS: CALCIUM 8.6 mg/dL (8.4-10.2); CREATININE, serum 2.03 (0.52-1.25); POTASSIUM 3.7 mmol/L (3.4-5.0)
[2020-01-22 10:21] LABS: BAND 4 % (0-10); EOSINOPHIL 9 % (0-4); LYMPHOCYTE 6 % (20.0-51.0); METAMYELOCYTE 1 % (0-0); NEUTROPHILS 75 % (42.0-75.2); PLATELET ESTIMATE NORMAL (NORMAL)
[2020-01-22 10:22] LABS: ANISOCYTOSIS 1+; HYPOCHROMIA 1+
[2020-01-22 11:02] LABS: ANA SCREEN with REFLEX Negative (Negative)
[2020-01-22 15:49] VITALS: BP 125/68; PULSE 110; TEMP 98
[2020-01-22 17:13] LABS: C-ANCA 13 U/mL (0-99)
--- NOTE | 2020-01-22 19:40 | NUR ---
Pt resting in the room this afternoon after dialysis, 1500 ml reported removed fron Pt, no other complaints / issues noted, VS have remained stable.
[2020-01-22 19:52] VITALS: BP 129/70; PULSE 104; TEMP 97.9
[2020-01-23] VITALS (7 sets, daily range): BP systolic 125–164; BP diastolic 59–95; PULSE 79–110; TEMP 97.4–98.4
--- NOTE | 2020-01-23 09:11 | NUR ---
PATIENT ASSESSMENT COMPLETED. SHE IS RESTING IN BED AWAITING DIALYSIS LISTENING TO STORIES ON THE IPAD. SHE DENIES ANY PAIN AT THIS TIME. O2 AT 2.5L VIA NASAL CANNULA. DENIES SOB.
--- NOTE | 2020-01-23 13:00 | NUR ---
PATIENT TO DIALYSIS PER ORDERS
[2020-01-23 13:35] LABS: HEMOGLOBIN 10.3 g/dl (12.5-16.0); MEAN CELL VOLUME 89 fl (80.0-100.0); MEAN CORPUSCULAR HEMOGLOBIN 28 pg (27.0-31.0); MEAN CORPUSCULAR HGB CONC 32 g/dl (33.0-37.0); MEAN PLATELET VOLUME 10.8 fl (7.4-10.4); PLATELET COUNT 250 K/mm3 (130-400); RED BLOOD COUNT 3.64 M/mm3 (4.10-5.30)
[2020-01-23 13:36] LABS: HEMATOCRIT 32.4 % (37.0-47.0)
[2020-01-23 13:47] LABS: CALCIUM 8.7 mg/dL (8.4-10.2); CREATININE, serum 1.67 (0.52-1.25); POTASSIUM 4.4 mmol/L (3.4-5.0)
--- NOTE | 2020-01-23 14:16 | NUR ---
TB skin test read on Left Forearm, no induration and no erythema noted.
[2020-01-23 14:29] LABS: ANISOCYTOSIS 2+; BAND 6 % (0-10); EOSINOPHIL 6 % (0-4); LYMPHOCYTE 7 % (20.0-51.0); NEUTROPHILS 80 % (42.0-75.2); PLATELET ESTIMATE NORMAL (NORMAL)
[2020-01-23 14:30] LABS: POLYCHROMASIA 1+
[2020-01-23 14:48] LABS: ANGIOTENSIN CONVERTING ENZYME 27 U/L (16 - 85)
--- NOTE | 2020-01-23 16:00 | NUR ---
ORDERED PATIENT A BOSTON SINCE SHE HAS RETURNED BACK TO HER ROOM FROM DIALYSIS.
--- NOTE | 2020-01-23 16:04 | NUR ---
PATIENT IS STILL AT DIALYSIS
--- NOTE | 2020-01-23 20:34 | NUR ---
At time of assessment, patient is resting in bed but easily wakes to voice. She is alert and oriented with no complaints of pain or nausea. No edema is present. Lung sounds are clear over diminished and heart sounds are irregular with a tachycardic rate. She wears 0.5 L 02 and shows no increased work of breathing at this time. No IV access is present, per doctor's orders. No new concerns, will continue to monitor.
[2020-01-24 03:50] VITALS: BP 136/87; PULSE 97; TEMP 97.9
--- NOTE | 2020-01-24 06:02 | NUR ---
Patient has had a restful, uneventful night with no complaints of pain or nausea. No new concerns.
[2020-01-24 07:34] VITALS: BP 145/86; PULSE 115; TEMP 98.2
--- NOTE | 2020-01-24 08:57 | NUR ---
RYLIE NOTE: PT AOX4. DENIES PAIN. CURRENTLY ON 1.5L NC. REPORTS LARGE BM YESTERDAY AFTER >3 DAYS CONSTIPATION. DENIES NAUSEA THIS AM. REMAINS ORIENTED. DIALYSIS CATH C/D/I. AFIB ON TELE, TACHY. NOT NEW. PT DENIES VERTIGO, PALPITATIONS, CHEST PAIN, N/V.
[2020-01-24 11:34] VITALS: BP 140/69; PULSE 112; TEMP 98
[2020-01-24 15:28] VITALS: BP 132/89; PULSE 89; TEMP 98
[2020-01-24 19:20] VITALS: BP 142/82; PULSE 115; TEMP 98.3
--- NOTE | 2020-01-24 19:20 | NUR ---
Assessment complete. Resting in bed,watching television. Requests "something sweet, a cookie." Denies pain/discomfort. Denies other needs.
[2020-01-24 23:30] VITALS: BP 136/79; PULSE 92; TEMP 98.6
[2020-01-25 05:00] VITALS: BP 156/74; PULSE 110; TEMP 98.2
--- NOTE | 2020-01-25 08:10 | NUR ---
PT PLEASANT, AOX4, PT ASSESSMENT PERFORMED, PT MEDICATIONS GIVEN, RECIEVED CALL FOR PT TO BE TAKEN TO DIALYSIS. BELONGINGS GATHERED, PT ESCORTED TO DIALYSIS VIA WHEELCHAIR.
[2020-01-25 09:51] LABS: BASO % 0.3 % (0.0-2.0); EOS % 15.6 % (0-4.0); GRAN % 71.3 % (42.2-75.2); HEMOGLOBIN 10.1 g/dl (12.5-16.0); LYMPH # 0.8 (1.2-3.4); LYMPH % 6.5 % (20.0-51.0); MEAN CELL VOLUME 89 fl (80.0-100.0); MEAN CORPUSCULAR HEMOGLOBIN 29 pg (27.0-31.0); MEAN CORPUSCULAR HGB CONC 32 g/dl (33.0-37.0); MONO # 0.6 (0.1-0.6); MONO % 4.9 % (1.7-9.3); PLATELET COUNT 196 K/mm3 (130-400); RED BLOOD COUNT 3.55 M/mm3 (4.10-5.30); REDCELL DISTRIBUTION WIDTH-CV 17.2 % (11.5-14.5)
[2020-01-25 10:02] LABS: CALCIUM 8.7 mg/dL (8.4-10.2); CREATININE, serum 1.65 (0.52-1.25); POTASSIUM 4.3 mmol/L (3.4-5.0)
[2020-01-25 10:10] LABS: HEMATOCRIT 31.6 % (37.0-47.0)
[2020-01-25] MEDS ORDERED: LANOXIN 0.120.125 MG PO (11:37)
[2020-01-25] MEDS ORDERED: CORDARONE200 MG/TAB PO (11:37)
[2020-01-25] MEDS ORDERED: TOPROL XL 25MG25 MG PO (11:38)
[2020-01-25] MEDS ORDERED: PROTONIX 40MG T40 MG PO (11:39)
[2020-01-25 12:05] VITALS: BP 152/85; PULSE 108
--- NOTE | 2020-01-25 12:07 | NUR ---
PT RETURNED FROM DIALYSIS. DENIES PAIN OR DISCOMFORT, DIGOXIN GIVEN
[2020-01-25] MEDS ORDERED: COLACE 100100 MG/CAP PO (13:00)
[2020-01-25] MEDS ORDERED: ASPIRIN 81M81 MG/TA2 PO (13:02)
--- NOTE | 2020-01-25 13:30 | NUR ---
PATIENT REQUIRES 2LPM WHILE AMBULATING TO BE >88%.
--- NOTE | 2020-01-25 15:09 | NUR ---
The patient is ready to discharge today, 01/24. MARLENI contacted the patient's daughter, Milagros, to review discharge plan. The patient's daughter reports that she would still like for the patient to return back home with her. She states that she does have concerns with the patient getting up and down stairs and requested that PT work on stairs with her before she leaves. She states that if the patient cannot do stairs, then she would consider post-acute rehab. MARLENI notified Katie with PT. Katie worked with the patient on stairs. Katie reports that the patient was able to get up and down the stairs. MARLENI contacted and updated the patient's daughter. The patient also qualified for two liters continuous oxygen. MARLENI informed the patient's daughter of this and she chose [facility]. MARLENI contacted and faxed the patient's oxygen order to Agnes at [facility]. [facility] to deliver the oxygen to the patient's room. MARLENI updated the patient's RN on this. The patient is to discharge back home with her daughter today, 01/24 and home health services for PT/OT/mcfp from [facility]. MARLENI notified and faxed the patient's orders to Anna at [facility]. MARLENI also presented and read the IM form outloud to the patient. The patient verbalized understanding and gave MARLENI approval to sign the form on her behalf. No additional needs at this time.
--- NOTE | 2020-01-25 18:30 | NUR ---
PT TAKEN OUT VIA WHEELCHAIR WITH ALL OF BELONGINGS. DISCHARGE EDUCATION PROVIDED, TELE DC'D, EDUCATED ON MEDICAITON ADN UPCOMING APPOINTMENTS. NO OTHER NEEDS AT THIS TIME.
[2020-01-27 15:23] LABS: HISTOPLASMA ID Negative (Negative); HISTOPLASMA MYCELIAL Negative (Negative); HISTOPLASMA YEAST Negative (Negative)
== END 2020-01-25 18:33 | disposition home health service (06) | DRG 291 ==
LOC: COL.ER 11:25 → MEDICAL 14:42 → PEDS 14:42 → MEDICAL 15:50
PROVIDERS: Emergency Medicine; Family Medicine; Hospitalist; Internal Medicine Nephrology; Internal Medicine Pulmonary Disease; Physician Assistant; Student in an Organized Health Care Education/Training Program; ADMIT Internal Medicine
PROC: 0JH63XZ Insertion of Tunneled Vascular Access Device into Chest Subcutaneous Tissue and Fascia, Percutaneous Approach (ICD-10-PCS; principal; 2020-01-20)
PROC: 02H633Z Insertion of Infusion Device into Right Atrium, Percutaneous Approach (ICD-10-PCS; 2020-01-20)
DX: I13.0 Hypertensive heart and chronic kidney disease with heart failure and stage 1 through stage 4 chronic kidney disease, or unspecified chronic kidney disease (principal); E43 Unspecified severe protein-calorie malnutrition; J18.9 Pneumonia, unspecified organism; N18.6 End stage renal disease; I50.33 Acute on chronic diastolic (congestive) heart failure; E87.1 Hypo-osmolality and hyponatremia; E87.2 Acidosis; K92.2 Gastrointestinal hemorrhage, unspecified; R04.2 Hemoptysis; D64.9 Anemia, unspecified; E03.9 Hypothyroidism, unspecified; Z96.641 Presence of right artificial hip joint; N18.3 Chronic kidney disease, stage 3 (moderate); I48.0 Paroxysmal atrial fibrillation; R00.0 Tachycardia, unspecified; Z20.828 Contact with and (suspected) exposure to other viral communicable diseases; I27.20 Pulmonary hypertension, unspecified; Z85.3 Personal history of malignant neoplasm of breast; Z86.73 Personal history of transient ischemic attack (TIA), and cerebral infarction without residual deficits; K44.9 Diaphragmatic hernia without obstruction or gangrene
CPT/HCPCS: 99222-AI; 99232-AI; 99233-AI; 99239; A9284; J0692; J0696; J1644; J1940; J2250; J2405; J2916; J3010; J3370; J3475; J7030; J7050; P9016; Q5105; Q5106

== ENCOUNTER 2020-01-27 10:38 | Inpatient (IN) | payer MEDICARE, MEDICAID ==
[~2020-01-27] VITALS: Ht 165.1 cm; Wt 57.3 kg
[2020-01-27] VITALS (72 sets, daily range): BP systolic 136–170; BP diastolic 67–98; PULSE 66–111; TEMP 98.5–100.4; O2SAT 91–100
[~2020-01-27 10:38] MED LIST changes: +COLACE 100100 MG/CAP PO; +LANOXIN 0.120.125 MG PO; +PROTONIX 40MG T40 MG PO; +TOPROL XL 25MG25 MG PO
[2020-01-27 12:11] LABS: BASO # 0.1 (0.0-0.2); BASO % 0.8 % (0.0-2.0); EOS # 1.4 (0.0-0.7); GRAN # 7.6 (1.4-6.5); GRAN % 72.3 % (42.2-75.2); HEMATOCRIT 28.8 % (37.0-47.0); LYMPH # 0.6 (1.2-3.4); MEAN CELL VOLUME 90 fl (80.0-100.0); MEAN CORPUSCULAR HEMOGLOBIN 28 pg (27.0-31.0); MEAN CORPUSCULAR HGB CONC 31 g/dl (33.0-37.0); MEAN PLATELET VOLUME 10.7 fl (7.4-10.4); MONO # 0.7 (0.1-0.6); PLATELET COUNT 170 K/mm3 (130-400); RED BLOOD COUNT 3.19 M/mm3 (4.10-5.30); REDCELL DISTRIBUTION WIDTH-CV 17.7 % (11.5-14.5)
[2020-01-27 12:13] LABS: INR 1.1 (0.8-3.0); PROTHROMBIN TIME 12.8 SECONDS (9.7-12.8)
[2020-01-27 12:20] LABS: ALBUMIN 3.7 gm/dL (3.5-5.0); BILIRUBIN,TOTAL 1.7 mg/dL (0.0-1.0); C-REACTIVE PROTEIN 8.7 mg/dL (0.0-0.9); CALCIUM 8.6 mg/dL (8.4-10.2); CREATININE, serum 1.68 (0.52-1.25); POTASSIUM 4.4 mmol/L (3.4-5.0); TOTAL PROTEIN 7.2 gm/dL (6.4-8.2)
[2020-01-27 12:29] LABS: TROPONIN-I 0.015 ng/mL (0.000-0.035)
[2020-01-27] MEDS ORDERED: ONE-A-DAY ESSE1 EACH PO (14:01)
--- NOTE | 2020-01-27 18:00 | NUR ---
Pt sitting in bed shaking, aide obtaining vitals. Pulse tachy and irregular, tele contacted who reports patient in Afib. When asked if patient has been in Afib for duration of stay he reports this conversion happened approximately two hours ago (this nurse was not notified). Pt's O2 sat low, 10L OM required to maintain O2 sat >90%. Temperature elevated. Pt feeling slightly SOB, no pain. RT contacted for EKG and STEFANO Jauregui notified. Pt transferred to Room ICU 2.
[2020-01-27 18:06] LABS: ARTERIAL BLD GAS O2 SATURATION 93.1 % (92-100); ARTERIAL BLD GAS TCO2 CT 19.4; ARTERIAL BLOOD GAS BASE EXCESS -2.7 (-2-2); ARTERIAL BLOOD GAS HCO3 18.7 meq/L (22-26); ARTERIAL BLOOD GAS PO2 58.8 mmHg (80-100); ARTERIAL BLOOD GAS pH 7.53 (7.35-7.45)
[2020-01-27 18:07] LABS: ARTERIAL BLOOD GAS PCO2 22.9 mmHg (35-45)
--- NOTE | 2020-01-27 18:35 | NUR ---
PLACED PT ON AIRVO 40L 51% SPO2 98% HR 58
--- NOTE | 2020-01-27 21:00 | NUR ---
PT CONVERT TO SR, EKG ORDERED
--- NOTE | 2020-01-27 22:04 | NUR ---
PT RESTING IN BED, DENIES PAIN OR SOB AT THIS TIME, REMAINS ON AIR-VO W/ NO CHANGE TO PREVIOUS SETTING. VALENTINO CATH PLACED AND PT STARTED ON BUMEX GTT. PT REMAINS ON AMIO GTT AND CONVERTED TO SR PER A P MECHANIC AT AROUND 2100. WILL CONTINUE TO MONITOR PT STATUS AND UPDATE PROVIDERS NEEDED.
[2020-01-28] VITALS (513 sets, daily range): BP systolic 145–192; BP diastolic 57–85; PULSE 58–63; TEMP 97.5–98.2; O2SAT 76–100
[2020-01-28 06:11] LABS: MEAN CELL VOLUME 90 fl (80.0-100.0); MEAN CORPUSCULAR HGB CONC 32 g/dl (33.0-37.0); MEAN PLATELET VOLUME 10.9 fl (7.4-10.4); PLATELET COUNT 191 K/mm3 (130-400); RED BLOOD COUNT 3.11 M/mm3 (4.10-5.30); REDCELL DISTRIBUTION WIDTH-CV 17.7 % (11.5-14.5)
[2020-01-28 06:15] LABS: BILIRUBIN,TOTAL 1.6 mg/dL (0.0-1.0); CALCIUM 8.6 mg/dL (8.4-10.2); CREATININE, serum 1.92 (0.52-1.25); POTASSIUM 3.9 mmol/L (3.4-5.0)
[2020-01-28 06:25] LABS: HEMATOCRIT 27.9 % (37.0-47.0); MEAN CORPUSCULAR HEMOGLOBIN 29 pg (27.0-31.0)
[2020-01-28 07:11] LABS: BAND 8 % (0-10); LYMPHOCYTE 4 % (20.0-51.0); NEUTROPHILS 87 % (42.0-75.2); PLATELET ESTIMATE NORMAL (NORMAL)
--- NOTE | 2020-01-28 10:24 | NUR ---
Brick Setter Operator attended clinical rounds with the team. The patient is a recent readmission. A goals of care consult was ordered.
--- NOTE | 2020-01-28 11:19 | NUR ---
Automotive Service Assistant faxed udpates to [facility].
--- NOTE | 2020-01-28 13:20 | NUR ---
Automatic Dry Starch Operator met with the patient to complete initial intake and readmission interview. The patient lives in [place] with her daughter, Milagros and her son-in-law. The patient uses oxygen at home and receives supplies from [employer] and has a walking stick. The patient is mostly independent with ADLs. The patient receives medications from [facility] and Dr. Moore is the PCP. The patient has advanced directives in the EMR. The patient receives PT/OT/nursing services from [facility]. The patient plans to return home with [facility]. SW conducted a readmission patient interview. The names of specialist are Dr. Phillips and Dr. Gomez.The patient did see Dr. Gomez before readmission but not her PCP. She did not follow up with PCP before readmission. Patient education was provided at last discharge. The patient was complying with taking prescribed medication proir to readmission. MARLENI will continue to monitor.
--- NOTE | 2020-01-28 13:52 | NUR ---
Initial visit; Patient thanked Anesthesia Associate for looking in on her and requested that Anesthesia Associate keep her in her prayers.
--- NOTE | 2020-01-28 15:43 | NUR ---
Iza Givens RN met with pt and her daughter to do the serious conversation guide. Pt is still very determined to find out what is wrong and what can be done about it. She is a full code by her own choosing and doesn't want to change that at this point. She wants biopsies, bronchoscopies, scans and other testing done if this will help her understand what is going on and what might be done to manage this. Daughter Milagros Marc was present in room with her mother's OK.
--- NOTE | 2020-01-28 16:18 | NUR ---
Report called to Armando CABRERA at 1611. Patient's daughter at bedside.
--- NOTE | 2020-01-28 17:58 | NUR ---
PT TO ROOM 322 PER BED WITH REPORT FROM GHAZALA CABRERA ICU.
--- NOTE | 2020-01-28 18:06 | NUR ---
Patient transfered to surgical unit via bed with assistance from 2 staff members. Daughter gathered belongings and followed staff to new room. Patient tolerated well; IV infusing, O2 via NC in place.
[2020-01-28 18:37] LABS: COMPLEMENT-C3 145 mg/dL (83-193); COMPLEMENT-C4 41 mg/dL (15-57)
--- NOTE | 2020-01-28 19:46 | NUR ---
Resting in bed. Assessment complete. Right lung diminished, left lung crackles. Heart sounds normal. Bowels active x4. Pulses present throughout. No edema noted. INT right forearm flushed without complications. IV right wrist bumex infusing as ordered. Patient denies needs. Denies pain at this time. Call light in reach.
--- NOTE | 2020-01-28 19:53 | NUR ---
Held patient HS metoprolol due to pulse 55 to 60 on telemetry. Azul HENSON notified.
[2020-01-29] VITALS (7 sets, daily range): BP systolic 160–194; BP diastolic 54–65; PULSE 59–66; TEMP 98.1–98.4
--- NOTE | 2020-01-29 01:23 | NUR ---
Patient provided with PRN hydralazine for systolic BP 167
--- NOTE | 2020-01-29 01:45 | NUR ---
Resting in bed asleep. Call light in reach.
--- NOTE | 2020-01-29 05:10 | NUR ---
Patient BP elevated. Given PRN hydralazine.
[2020-01-29 05:58] LABS: BASO # 0.1 (0.0-0.2); BASO % 0.4 % (0.0-2.0); EOS # 0.3 (0.0-0.7); GRAN % 84.1 % (42.2-75.2); LYMPH # 0.9 (1.2-3.4); LYMPH % 6.3 % (20.0-51.0); MEAN CELL VOLUME 89 fl (80.0-100.0); MEAN CORPUSCULAR HGB CONC 32 g/dl (33.0-37.0); MEAN PLATELET VOLUME 11.4 fl (7.4-10.4); MONO # 0.9 (0.1-0.6); MONO % 6.6 % (1.7-9.3); PLATELET COUNT 230 K/mm3 (130-400); RED BLOOD COUNT 3.12 M/mm3 (4.10-5.30); REDCELL DISTRIBUTION WIDTH-CV 17.8 % (11.5-14.5)
[2020-01-29 06:01] LABS: CALCIUM 8.8 mg/dL (8.4-10.2); CREATININE, serum 2.23 (0.52-1.25); POTASSIUM 3.6 mmol/L (3.4-5.0)
[2020-01-29 06:10] LABS: HEMATOCRIT 27.9 % (37.0-47.0); HEMOGLOBIN 8.9 g/dl (12.5-16.0); MEAN CORPUSCULAR HEMOGLOBIN 29 pg (27.0-31.0)
--- NOTE | 2020-01-29 06:15 | NUR ---
Telemetry called around [address] depression. Patient recently up straining with bowel movement. Patient impacted with BM. Assisted with BM digitally. Obtained EKG per telemetry protocol. Patient asympomatic. Denies needs at this time. Call light in reach.
--- NOTE | 2020-01-29 06:19 | NUR ---
Patient had uneventful night. Had a hard bowel movement this AM. Denies needs. Call light in reach.
--- NOTE | 2020-01-29 06:57 | NUR ---
Report given to DEBORAH Roberts
--- NOTE | 2020-01-29 08:57 | NUR ---
PT TO DIALYSIS THIS AM AFTER EATING BREAKFAST. AM MEDS GIVEN PER JW CABRERAPHYSICIAN GYNECOLOGIST. PT TRANSFERED TO WHEEL CHAIR WITH SBAX1. PT FOLLOWING 1500 MLS TOTAL FLUID RESTRICTION.
--- NOTE | 2020-01-29 09:29 | NUR ---
PT TO DIALYSIS PER WHEEL CHAIR WITH STAFF.
--- NOTE | 2020-01-29 13:54 | NUR ---
Met with patient and daughter this afternoon. Pt reports she feels ok but just finished dialysis so is tired. Eating lunch. She is requesting some miralax and also asked that food be refrigerated. This was passed onto to Armando, primary nurse.
--- NOTE | 2020-01-29 20:01 | NUR ---
Resting in bed. Assessment complete. Upper lobes diminshed otherwise clear. Heart sounds normal. Bowels active x4. Pulses present throughout. No edema noted. INT to right hand and right forearm flushed without complications. Bumex gtt bag complete and orders have been discontinued. Stopped at this time. Hameed to dependent drainage. Denies needs. Denies pain. Call light in reach. Will monitor.
[2020-01-30] VITALS (12 sets, daily range): BP systolic 142–186; BP diastolic 53–73; PULSE 50–60; TEMP 97.7–98.8
--- NOTE | 2020-01-30 00:30 | NUR ---
BP rechecked. PRN hydralazine not needed at this time. Denies needs. Denies pain. Call light in reach.
--- NOTE | 2020-01-30 04:39 | NUR ---
Patient provided with PRN hydralazine for elevate BP. Denies needs. Call light in reach.
--- NOTE | 2020-01-30 06:09 | NUR ---
Patient given x1 hydralazine for elevated BP during night. Otherwise uneventful night. Resting in bed this AM. Call light in reach.
--- NOTE | 2020-01-30 06:58 | NUR ---
Report given to DEBORAH Marlow
--- NOTE | 2020-01-30 07:06 | NUR ---
RYLIE NTE: PT ASLEEP DURING BEDSIDE REPORT. NASAL CANULA INTACT
[2020-01-30 08:07] LABS: BASO # 0.1 (0.0-0.2); BASO % 0.5 % (0.0-2.0); EOS # 0.3 (0.0-0.7); EOS % 2.3 % (0-4.0); GRAN # 8.8 (1.4-6.5); GRAN % 77.7 % (42.2-75.2); LYMPH # 1.1 (1.2-3.4); LYMPH % 9.9 % (20.0-51.0); MEAN CELL VOLUME 91 fl (80.0-100.0); MEAN CORPUSCULAR HGB CONC 31 g/dl (33.0-37.0); MEAN PLATELET VOLUME 11.8 fl (7.4-10.4); MONO % 8.9 % (1.7-9.3); PLATELET COUNT 251 K/mm3 (130-400); RED BLOOD COUNT 3.19 M/mm3 (4.10-5.30); REDCELL DISTRIBUTION WIDTH-CV 18.1 % (11.5-14.5)
[2020-01-30 08:13] LABS: CALCIUM 8.7 mg/dL (8.4-10.2); POTASSIUM 3.9 mmol/L (3.4-5.0)
[2020-01-30 08:14] LABS: HEMATOCRIT 28.9 % (37.0-47.0); HEMOGLOBIN 8.9 g/dl (12.5-16.0); MEAN CORPUSCULAR HEMOGLOBIN 28 pg (27.0-31.0)
--- NOTE | 2020-01-30 13:54 | NUR ---
VALENTINO CATHETER DC'D @ 1400 PER ORDERS. PT TOLERATED PROCEDURE.
--- NOTE | 2020-01-30 16:02 | NUR ---
MARLENI followed up with nurse Marlow on discharge plan. Nurse provided that patient would not be going home on 01/30/2020. SW to continue to follow.
--- NOTE | 2020-01-30 18:43 | NUR ---
EOS NOTE: PT REPORTS SHE FEELS A SLIGHT NEED TO VOID BUT "IS NOT THERE YET". DENIES ABD CRAMPING. NO TENDERNESS NOTED. IT'S BEEN 4.5HRS SINCE VALENTINO REMOVAL. PT AWARE WOULD NEED BLADDER SCAN AFTER 6HRS
--- NOTE | 2020-01-30 19:15 | NUR ---
PT VOIDED 425MLS @ 1909.
--- NOTE | 2020-01-30 19:35 | NUR ---
Pt currently sitting up in bed. Pt was assisted to the restroom. Pt was able to void and have a bowel movement. Pt has no other concerns at this time. Pt has call light within reach and her bed is in lowest position.
[2020-01-31] VITALS (9 sets, daily range): BP systolic 149–182; BP diastolic 57–69; PULSE 47–53; TEMP 97.5–98.5
--- NOTE | 2020-01-31 02:55 | NUR ---
Pt blood pressure was elevated. Pt did receive a dose of hydralazine 25 mg at 2348. Pt blood pressure currently is 179/59. Azul the hospitalist was contacted at this time. I informed her of the time that I gave the pt the last dose of hydralazine and she ordered for me to given her another dose at this time.
[2020-01-31 07:10] LABS: BASO # 0.1 (0.0-0.2); BASO % 0.5 % (0.0-2.0); EOS # 0.1 (0.0-0.7); EOS % 1.1 % (0-4.0); GRAN # 8.3 (1.4-6.5); GRAN % 77.9 % (42.2-75.2); LYMPH # 1.1 (1.2-3.4); LYMPH % 10.3 % (20.0-51.0); MEAN CELL VOLUME 89 fl (80.0-100.0); MEAN CORPUSCULAR HGB CONC 32 g/dl (33.0-37.0); MEAN PLATELET VOLUME 12.3 fl (7.4-10.4); MONO % 9.1 % (1.7-9.3); PLATELET COUNT 278 K/mm3 (130-400); RED BLOOD COUNT 3.16 M/mm3 (4.10-5.30); REDCELL DISTRIBUTION WIDTH-CV 17.8 % (11.5-14.5)
[2020-01-31 07:14] LABS: MEAN CORPUSCULAR HEMOGLOBIN 28 pg (27.0-31.0)
--- NOTE | 2020-01-31 07:15 | NUR ---
Reported off to DEBORAH Amezquita. Pt currently lying in bed and has no concerns at this time.
[2020-01-31 07:16] LABS: CALCIUM 8.3 mg/dL (8.4-10.2); CREATININE, serum 2.16 (0.52-1.25); POTASSIUM 3.5 mmol/L (3.4-5.0)
--- NOTE | 2020-01-31 17:11 | NUR ---
SW met with patient to discuss medicare rights form(IM). Patient requested that form be left for her daughter to ready over. SW left form, and will follow up.
--- NOTE | 2020-01-31 19:19 | NUR ---
patient had an uneventful day. patient currently resting in bed during shift report. no prn hydralazine needed on my shift. patient denied pain throughout the day. patient able to walk from the bed to the bathroom without oxygen or difficulties breathing. call light within reach. patient denies any needs at this time.
[2020-02-01 03:24] VITALS: BP 141/63; PULSE 52; TEMP 98.5
--- NOTE | 2020-02-01 05:45 | NUR ---
Patient has rested well throughout the night. Denies pain throughout the night. Dialysis catheter noted to right chest. INT to right hand flushes with no problems. Oxygen saturations have been within normal limits and oxygen has not been needed this shift. No PRN Hydralazine given this shift. Dr. Kelley notified of low heart rate of 47 at 1999 on 01/30 d/t metoprolol and amiodarone being scheduled at HS. Dr. Kelley stated to go ahead and give the scheduled medications. Left arm continues to be restricted for fistula placement preparation. Walks with 1 assist from staff to the bathroom. Urine output good. Will continue to monitor patient.
[2020-02-01 06:30] LABS: MEAN CELL VOLUME 86 fl (80.0-100.0); MEAN CORPUSCULAR HGB CONC 33 g/dl (33.0-37.0); MEAN PLATELET VOLUME 11.5 fl (7.4-10.4); PLATELET COUNT 316 K/mm3 (130-400); RED BLOOD COUNT 3.37 M/mm3 (4.10-5.30); REDCELL DISTRIBUTION WIDTH-CV 17.8 % (11.5-14.5)
[2020-02-01 06:38] LABS: CALCIUM 8.7 mg/dL (8.4-10.2); CREATININE, serum 2.55 (0.52-1.25)
[2020-02-01 06:40] LABS: HEMOGLOBIN 9.6 g/dl (12.5-16.0); MEAN CORPUSCULAR HEMOGLOBIN 28 pg (27.0-31.0)
[2020-02-01 06:42] LABS: POTASSIUM 2.6 mmol/L (3.4-5.0)
--- NOTE | 2020-02-01 07:20 | NUR ---
CALLED DR. CARRASQUILLO AND SPOKE WITH JW CABRERA UPDATED ON PT LABS. NEW ORDER RECIEVED.
[2020-02-01 08:01] VITALS: BP 154/54; PULSE 47; TEMP 98.1
[2020-02-01 08:16] LABS: BAND 3 % (0-10); LYMPHOCYTE 16 % (20.0-51.0); METAMYELOCYTE 1 % (0-0); MYELOCYTE 2 % (0-0); NEUTROPHILS 68 % (42.0-75.2)
[2020-02-01 08:17] LABS: PLATELET ESTIMATE NORMAL (NORMAL)
[2020-02-01 08:20] LABS: ANISOCYTOSIS 1+
--- NOTE | 2020-02-01 10:14 | NUR ---
PT SITTING UP IN BED. ATE BREAKFAST. PO POTASSIUM GIVEN ORDERED. DR. FIGUEROA IN TO SEE PT. PLAN ON DIALYSIS LATER THIS AM. PT IS A/O X3.
[2020-02-01] MEDS ORDERED: TOPROL XL 25MG25 MG PO (12:02)
[2020-02-01] MEDS ORDERED: DEMADEX 20MG20 M1 PO (12:04)
[2020-02-01] MEDS ORDERED: ESTRACE0.5 MG PO (12:05)
--- NOTE | 2020-02-01 15:49 | NUR ---
Sealer Aircraft attended clinical rounds with the team and patient's daughter was on speakerphone. Patient is currently on room air and plan is for discharge home with [facility]. MARLENI contacted Daniela at [facility] and provided update. MARLENI will continue to follow.
[2020-02-01 15:56] VITALS: BP 187/69; PULSE 55; TEMP 97.9
[2020-02-01 19:20] VITALS: BP 166/64; PULSE 56; TEMP 98.5
[2020-02-01 19:45] VITALS: BP 145/56; PULSE 51
[2020-02-01 23:08] VITALS: BP 149/69; PULSE 55; TEMP 97.9
--- NOTE | 2020-02-02 01:04 | NUR ---
Pt is currently resting in bed. Pt did have a lab draw for her potassium on yesterday and her potassium was at 2.6. Azul the hospitalist was contacted about the pt getting one dose of potassium. Potassium lab orders were placed. Once the labs are resulted Azul wants potassium replaced if needed. Will follow up with her on pt status.
--- NOTE | 2020-02-02 02:17 | NUR ---
Pt potassium was 3.4 and her potassium was replaced at this time. Pt took his medication in cranberry juice. Pt is currently awake in bed. Pt labs were also put in to be drawn at 0500 which will be 3 hours after her dose of medication. Pt has her call light within reach and her bed is in lowest position. Pt has ambuated to the restroom twice during the shift.
[2020-02-02 03:52] VITALS: BP 156/58; PULSE 44; TEMP 98.5
[2020-02-02 07:40] VITALS: BP 154/59; PULSE 44; TEMP 97.9
[2020-02-02 08:30] LABS: HEMOGLOBIN 10.1 g/dl (12.5-16.0); MEAN CELL VOLUME 88 fl (80.0-100.0); MEAN CORPUSCULAR HEMOGLOBIN 29 pg (27.0-31.0); MEAN CORPUSCULAR HGB CONC 32 g/dl (33.0-37.0); MEAN PLATELET VOLUME 11.4 fl (7.4-10.4); PLATELET COUNT 324 K/mm3 (130-400); RED BLOOD COUNT 3.55 M/mm3 (4.10-5.30); REDCELL DISTRIBUTION WIDTH-CV 18.6 % (11.5-14.5)
[2020-02-02 08:34] LABS: BILIRUBIN,TOTAL 0.9 mg/dL (0.0-1.0); CALCIUM 8.7 mg/dL (8.4-10.2); CREATININE, serum 3.08 (0.52-1.25); HEMATOCRIT 31.3 % (37.0-47.0); POTASSIUM 3.4 mmol/L (3.4-5.0); TOTAL PROTEIN 7.5 gm/dL (6.4-8.2)
[2020-02-02 08:55] LABS: BAND 4 % (0-10); LYMPHOCYTE 12 % (20.0-51.0); NEUTROPHILS 81 % (42.0-75.2); PLATELET ESTIMATE NORMAL (NORMAL)
[2020-02-02] MEDS ORDERED: PACERONE100 MG PO (08:56)
[2020-02-02] MEDS ORDERED: PREDNISONE10 MG PO (08:59)
--- NOTE | 2020-02-02 09:15 | NUR ---
Dr Carson here to see patient.
--- NOTE | 2020-02-02 09:29 | NUR ---
Patient alert and oriented, answers questions appropriately. See assessment. Lungs decreased in bases, clear in upper lobes. No cough reported. VSS. Anticipates discharge after lunch today. No c/o at this time.
--- NOTE | 2020-02-02 10:26 | NUR ---
Patient has orders to discharge today. MARLENI contacted patient's daughter, Milagros who is in agreement with discharge plan and will orange picker patient this afternoon. Patient will discharge home with Milagros with [facility] PT/OT/Correction. MARLENI contacted Daniela at [facility] and faxed discharge orders. No additional needs at this time.
[2020-02-02 11:46] VITALS: BP 146/52; PULSE 58; TEMP 98.1
--- NOTE | 2020-02-02 13:13 | NUR ---
Discharge instructions reviewed with patient, voiced understanding. Discharged via wheelchair to auto/home with family at 1300.
--- NOTE | 2020-02-02 13:32 | NUR ---
Met with pt prior to discharge to discuss readmission and plan for returning home this time. Pt reports that she can tell that she is in a better place at this discharge than last time. She reports that she has dialysis this evening and she will have a f/u apt with Dr. Moore next week. Pt reports that she has a good relationship with her PCM, Dr. Moore, and will contact him with and concerns. Pt was only home 2 days after last discharge. She reports that she had 2 apts in the morning and then Home Health came to see her all in the first day she was home last time and she thinks that wore her out. Discussed CHF educations. Discussed diet and weight herself daily. Pt denied any questions or concerns at this time.
[2020-02-04 10:36] LABS: A/G RATIO (PEP) 0.76 (())
== END 2020-02-02 13:00 | disposition home health service (06) | DRG 314 ==
LOC: COL.ER 10:38 → ICU 12:24 → MEDICAL 12:24 → ICU 17:59 → SURG 01-28 18:17
PROVIDERS: Emergency Medicine; Hospitalist; Internal Medicine Nephrology; Physician Assistant; ADMIT Internal Medicine
DX: I27.0 Primary pulmonary hypertension (principal); J96.21 Acute and chronic respiratory failure with hypoxia; E43 Unspecified severe protein-calorie malnutrition; I50.32 Chronic diastolic (congestive) heart failure; E87.1 Hypo-osmolality and hyponatremia; N17.9 Acute kidney failure, unspecified; R04.2 Hemoptysis; N18.4 Chronic kidney disease, stage 4 (severe); I48.0 Paroxysmal atrial fibrillation; K31.819 Angiodysplasia of stomach and duodenum without bleeding; I12.9 Hypertensive chronic kidney disease with stage 1 through stage 4 chronic kidney disease, or unspecified chronic kidney disease; D63.1 Anemia in chronic kidney disease; D50.9 Iron deficiency anemia, unspecified; E03.9 Hypothyroidism, unspecified; M19.90 Unspecified osteoarthritis, unspecified site; Z20.828 Contact with and (suspected) exposure to other viral communicable diseases; K59.00 Constipation, unspecified; Z79.82 Long term (current) use of aspirin; R53.81 Other malaise; Z68.21 Body mass index [BMI] 21.0-21.9, adult; Z85.3 Personal history of malignant neoplasm of breast; Z86.73 Personal history of transient ischemic attack (TIA), and cerebral infarction without residual deficits; Z96.641 Presence of right artificial hip joint; Z92.3 Personal history of irradiation; Z88.0 Allergy status to penicillin; Z88.1 Allergy status to other antibiotic agents
CPT/HCPCS: 99231-AI; 99232-AI; 99233-AI; 99239; J0282; J0696; J1644; J3370; J7030; J7050; J7060; J7512; Q5105

== ENCOUNTER → 2020-03-04 | Outpatient (CLI) | payer MEDICARE, MEDICAID ==
[~2020-03-04] MED LIST changes: +DEMADEX 20MG20 M1 PO; +ESTRACE0.5 MG PO; +ONE-A-DAY ESSE1 EACH PO; +PREDNISONE10 MG PO
== END ==
LOC: COL.VAS 13:20
DX: Z01.818 Encounter for other preprocedural examination (principal); N17.9 Acute kidney failure, unspecified; Z99.2 Dependence on renal dialysis

== ENCOUNTER 2020-07-18 14:57 | Emergency (ER) | payer MEDICARE, MEDICAID ==
[~2020-07-18] VITALS: Ht 165.1 cm; Wt 54.5 kg
[2020-07-18 15:19] VITALS: TEMP 98.5
[2020-07-18 16:10] LABS: HEMOGLOBIN 10.8 g/dl (12.5-16.0); MEAN CELL VOLUME 96 fl (80.0-100.0); MEAN CORPUSCULAR HEMOGLOBIN 31 pg (27.0-31.0); MEAN CORPUSCULAR HGB CONC 32 g/dl (33.0-37.0); MEAN PLATELET VOLUME 10.8 fl (7.4-10.4); PLATELET COUNT 191 K/mm3 (130-400); RED BLOOD COUNT 3.52 M/mm3 (4.10-5.30); REDCELL DISTRIBUTION WIDTH-CV 16.3 % (11.5-14.5)
[2020-07-18 16:15] LABS: HEMATOCRIT 33.6 % (37.0-47.0)
[2020-07-18 16:19] LABS: BILIRUBIN,TOTAL 1.3 mg/dL (0.0-1.0); CREATININE, serum 5.32 (0.52-1.25); POTASSIUM 4.7 mmol/L (3.4-5.0); TOTAL PROTEIN 7.7 gm/dL (6.4-8.2)
[2020-07-18 16:37] LABS: TROPONIN-I 0.036 ng/mL (0.000-0.035)
[2020-07-18 16:52] LABS: BAND 5 % (0-10); EOSINOPHIL 2 % (0-4); LYMPHOCYTE 1 % (20.0-51.0); NEUTROPHILS 84 % (42.0-75.2)
[2020-07-18 16:53] LABS: HYPOCHROMIA 1+; PLATELET ESTIMATE NORMAL (NORMAL)
[2020-07-18 16:54] LABS: ANISOCYTOSIS 1+
[2020-07-18 21:05] LABS: COLLECTION METHOD CLEAN CATCH
[2020-07-18 21:12] LABS: MUCOUS Present /lpf; PH 5 (5-8); SQUAMOUS EPITHELIAL 0-2 /hpf; URINE APPEARANCE Cloudy; URINE BACTERIA Rare /hpf; URINE BILIRUBIN Negative (NEGATIVE); URINE BLOOD Negative (NEGATIVE); URINE COLOR Amber; URINE GLUCOSE Negative (NEGATIVE); URINE KETONE Negative (NEGATIVE); URINE LEUKOCYTE ESTERASE 2+ (NEGATIVE); URINE NITRATE Negative (NEGATIVE); URINE PROTEIN(semi-quant) 2+ (NEGATIVE); URINE RBC 0-2 /hpf
[2020-07-18] MEDS ORDERED: MACROBID 1100 MG/CAP PO (21:56)
[2020-07-18 23:53] VITALS: BP 120/80; PULSE 80
[2020-07-19] MEDS ORDERED: OMNICEF 300MG300 MG PO (15:09)
== END 2020-07-18 22:10 | disposition home or self-care (01) ==
LOC: COL.ER 14:57
PROVIDERS: Emergency Medicine
DX: R05 Cough (principal); N18.6 End stage renal disease; Z99.2 Dependence on renal dialysis; Z88.1 Allergy status to other antibiotic agents; Z79.82 Long term (current) use of aspirin; Z79.52 Long term (current) use of systemic steroids

== ENCOUNTER 2020-08-29 08:48 | Inpatient (IN) | payer MEDICARE, MEDICAID ==
[~2020-08-29] VITALS: Ht 165.1 cm; Wt 51.1 kg
[~2020-08-29 08:48] MED LIST changes: +MACROBID 1100 MG/CAP PO; +OMNICEF 300MG300 MG PO
[2020-08-29 09:42] LABS: BASO # 0.1 (0.0-0.2); BASO % 0.6 % (0.0-2.0); EOS # 0.4 (0.0-0.7); EOS % 3.7 % (0-4.0); GRAN # 8.5 (1.4-6.5); GRAN % 87.2 % (42.2-75.2); HEMOGLOBIN 10.7 g/dl (12.5-16.0); LYMPH # 0.5 (1.2-3.4); LYMPH % 4.7 % (20.0-51.0); MEAN CELL VOLUME 93 fl (80.0-100.0); MEAN CORPUSCULAR HEMOGLOBIN 29 pg (27.0-31.0); MEAN CORPUSCULAR HGB CONC 32 g/dl (33.0-37.0); MEAN PLATELET VOLUME 11.6 fl (7.4-10.4); MONO # 0.3 (0.1-0.6); MONO % 3.4 % (1.7-9.3); PLATELET COUNT 167 K/mm3 (130-400); RED BLOOD COUNT 3.64 M/mm3 (4.10-5.30); REDCELL DISTRIBUTION WIDTH-CV 18.6 % (11.5-14.5)
[2020-08-29 09:46] LABS: PROTHROMBIN TIME 11.7 SECONDS (9.7-12.8)
[2020-08-29 09:48] LABS: ALBUMIN 4.4 gm/dL (3.5-5.0); BILIRUBIN,TOTAL 2.8 mg/dL (0.0-1.0); CALCIUM 8.9 mg/dL (8.4-10.2); CREATININE, serum 3.22 (0.52-1.25); MAGNESIUM 2.5 mg/dL (1.6-2.3)
[2020-08-29 10:00] LABS: TROPONIN-I 0.014 ng/mL (0.000-0.035)
[2020-08-29 10:00] LABS: ARTERIAL BLD GAS O2 SATURATION 96.1 % (92-100); ARTERIAL BLD GAS TCO2 CT 23.1; ARTERIAL BLOOD GAS BASE EXCESS -0.6 (-2-2); ARTERIAL BLOOD GAS HCO3 22.2 meq/L (22-26); ARTERIAL BLOOD GAS PCO2 30.1 mmHg (35-45); ARTERIAL BLOOD GAS PO2 78.7 mmHg (80-100); ARTERIAL BLOOD GAS pH 7.49 (7.35-7.45)
[2020-08-29] MEDS ORDERED: NORVASC 5MG5 MG/TAB PO ×2 (10:03→10:04)
[2020-08-29] MEDS ORDERED: LIPITOR 40MG TA40 MG PO (10:03)
[2020-08-29] MEDS ORDERED: PHOS LO PO (10:04)
[2020-08-29] MEDS ORDERED: THE MEDICINE S200 M2 PO (10:05)
[2020-08-29] MEDS ORDERED: APRESOLINE 25MG25 MG PO (10:05)
[2020-08-29 10:28] LABS: HEMATOCRIT 33.7 % (37.0-47.0)
--- NOTE | 2020-08-29 13:30 | NUR ---
Patient up to dialysis room from ER. Transfers self from wheelchair to recliner. Gait steady. Alert and oriented x4. Denies pain. Patient says that she does not feel as short of air as she did when she came into the ER. Has on oxygen at 3L/NC. Lung sounds diminished. Patient says that she is hungry and asks if she can eat. Explain that we would have to see after dialysis. Patient verbalizes understanding. Denies additional needs at this time.
--- NOTE | 2020-08-29 15:15 | NUR ---
Patient still in dialysis, sitting up in recliner sleeping at this time. Huyen will make sure that Dr. Phillips is aware that no orders are in.
[2020-08-29 16:00] VITALS: BP 161/71; PULSE 56; TEMP 98.2
--- NOTE | 2020-08-29 17:13 | NUR ---
Patient tolerated HD tx, removed 3L of fluid. Next planned tx tomorrow 08/30/20.
--- NOTE | 2020-08-29 17:30 | NUR ---
Patient to room from dialysis via wheelchair. Transfers self from wheelchair to bed. Patient says that she was grateful to be able to sleep during dialysis. Already has ordered dinner and breakfast. Provide warm blankets to the patient and water. Son-in-law in room with the patient. Denies additional needs at this time.
--- NOTE | 2020-08-29 20:00 | NUR ---
PATIENT WAS ASLEEP IN THE ROOM,NO DUE MEDS,ASSESSMENT DONE.DENIES PAIN NO OTHER NEEDS AT THIS TIME.
[2020-08-29 20:11] VITALS: BP 141/54; PULSE 59; TEMP 98.4
[2020-08-30] VITALS (7 sets, daily range): BP systolic 137–158; BP diastolic 52–74; PULSE 56–76; TEMP 97.7–98.8
--- NOTE | 2020-08-30 06:16 | NUR ---
PATIENT HAD A CALM NIGHT.IV ACCESS CAME OFF PT NOT WILLING TO HAVE ANOTHER IV ACCESS STARTED.PROVIDER HAS BEEN NOTIFIED.NO OTHER NEEDS AT THIS TIME.
--- NOTE | 2020-08-30 08:04 | NUR ---
Pt in dialysis at this time. Dr Conner has been in to see patient, new orders wrote
[2020-08-30 08:41] LABS: BASO # 0.1 (0.0-0.2); BASO % 0.8 % (0.0-2.0); EOS # 0.6 (0.0-0.7); EOS % 6.6 % (0-4.0); GRAN # 6.9 (1.4-6.5); GRAN % 80.2 % (42.2-75.2); HEMATOCRIT 32.2 % (37.0-47.0); HEMOGLOBIN 10.3 g/dl (12.5-16.0); LYMPH # 0.6 (1.2-3.4); LYMPH % 6.8 % (20.0-51.0); MEAN CELL VOLUME 93 fl (80.0-100.0); MEAN CORPUSCULAR HEMOGLOBIN 30 pg (27.0-31.0); MEAN CORPUSCULAR HGB CONC 32 g/dl (33.0-37.0); MEAN PLATELET VOLUME 11.4 fl (7.4-10.4); MONO # 0.4 (0.1-0.6); MONO % 5.1 % (1.7-9.3); PLATELET COUNT 180 K/mm3 (130-400); RED BLOOD COUNT 3.46 M/mm3 (4.10-5.30); REDCELL DISTRIBUTION WIDTH-CV 18.5 % (11.5-14.5)
[2020-08-30 08:55] LABS: ALBUMIN 3.6 gm/dL (3.5-5.0); CALCIUM 8.4 mg/dL (8.4-10.2); CREATININE, serum 2.52 (0.52-1.25); PHOSPHOROUS 3.4 mg/dL (2.5-4.5); POTASSIUM 3.8 mmol/L (3.4-5.0)
[2020-08-30 08:56] LABS: ALBUMIN 3.9 gm/dL (3.5-5.0)
[2020-08-30 09:05] LABS: BILIRUBIN UNCONJUGATED 1.4 mg/dL (0.0-1.1); BILIRUBIN,DIRECT 0.7 mg/dL (0.0-0.4); BILIRUBIN,TOTAL 2.1 mg/dL (0.0-1.0)
--- NOTE | 2020-08-30 11:24 | NUR ---
Patient tolerated HD tx & removed 3 L of fluid. Next HD tx planned for 09/01/20 @ 0800.
--- NOTE | 2020-08-30 14:44 | NUR ---
Pt off the floor for MRI
--- NOTE | 2020-08-30 16:00 | NUR ---
pt doing well, minimal complaints. She stated that she does feel a little more short of breath since having her MRI. She feels this is due to her having to hold her breath some. Denies any pain or needs, she is requesting the door closed so that she can hopefully get some rest. Call light within reach
--- NOTE | 2020-08-30 16:28 | NUR ---
Supervisor Mechanic Boilermaking met with the patient to complete intake. The patient lives in [place] with her daughter, Milagros and son-in-law Tu. The patient uses oxygen in the evening. She does not know how many liters she is on baseline. The patient is independent. The patient's PCP is Dr. Moore and the patient receives medications from [facility] pharmacy with no difficulties. The patient has a living will in the EMR. She states she has DPOA-HC at home. The patient plans to return home at discharge and Tu will provide transportation. The patient has had [facility] but does not receive services at this time.
[2020-08-30 17:50] LABS: GAMMA GLUTAMYL TRANSPEPTIDASE 1139 U/L (3-36)
--- NOTE | 2020-08-30 18:12 | NUR ---
Pt has done well, but has been drowsy. She did wake up for her dinner, but then went back to resting after that. No needs or complaints, call light within reach.
--- NOTE | 2020-08-30 20:00 | NUR ---
Assessment complete. Patient is alert and oriented with no complaints of pain or discomfort. No edema is present. Heart sounds are normal/regular; Lungs are clear with fine crackles in LLL. Right chest dialysis catheter is present with CDI dressing; Right upper arm fistula has audible bruit and palpable thrill. Patient is provided with snack and fresh water. No new concerns, call light in reach.
[2020-08-31 03:03] VITALS: BP 126/57; PULSE 51; TEMP 97.5
[2020-08-31 07:50] VITALS: BP 140/50; PULSE 53; TEMP 97.4
[2020-08-31 08:05] LABS: TOTAL PROTEIN 8.3 gm/dL (6.4-8.2)
--- NOTE | 2020-08-31 08:15 | NUR ---
Shift assessment complete. Pt resting in bed w/audio book playing. Heart RRR. Lungs CTA. On RA. A&OX4. No IV access d/t pt refusal. Right chest dialysis cath w/o s/s complication. Denies needs at this time. Call light in reach.
[2020-08-31 08:22] LABS: BILIRUBIN UNCONJUGATED 0.7 mg/dL (0.0-1.1); BILIRUBIN,DIRECT 0.5 mg/dL (0.0-0.4); BILIRUBIN,TOTAL 1.2 mg/dL (0.0-1.0)
--- NOTE | 2020-08-31 09:44 | NUR ---
Initial visit; Patient thanked Upset Operator for looking in on her and offering spiritual care. Patient receptive to Upset Operator keeping her in her prayers and offering God's blessings.
[2020-08-31 12:10] VITALS: BP 153/58; PULSE 56; TEMP 97.6
[2020-08-31 15:33] VITALS: BP 161/60; PULSE 58; TEMP 98.2
--- NOTE | 2020-08-31 15:49 | NUR ---
Pt set to d/c this afternoon. Daughter called stating she felt uncomfortable bringing pt home, transferred call to mental health social worker Mary. After discussing w/pt, social work, and , pt agreeable to stay one more night w/possible transfer to IPR or SNF tomorrow.
--- NOTE | 2020-08-31 16:17 | NUR ---
Hosiery Operator received a phone call from patient's daughter, Milagros who advised she was very concerned about patient returning home. Milagros states she is normally home with patient but she is currently out of town and her , patient's son in law works outside of the home. Cesar advised that she feels patient would benefit from post acute rehab before returning home. Milagros is specifically interested in IPR. MARLENI collaborated with Dr. Phillips and patient will not discharge today. Dr. Phillips would like IPR screen to be completed. MARLENI contacted Valorie, IPR Director to give referral. Valorie advised she may not have bed availability for patient. MARLENI met with patient to review discharge plan. Patient agrees she would benefit from post acute rehab. Patient is agreeable to IPR screen. MARLENI discussed SNF options incase [facility] cannot accept. Patient states she has been to [facility] before and is open to SNF placement as a second preference to IPR. MARLENI contacted patient's daughter, Milagros to provide update. Milagros advised if I[facility] cannot take, [facility] would be first preference and [facility] would be second preference.
[2020-08-31 19:14] VITALS: BP 152/60; PULSE 62; TEMP 97.9
--- NOTE | 2020-08-31 20:00 | NUR ---
Assessment complete. Patient is alert and oriented with no complaints of pain. She is currently speaking with family on the telephone. No edema is noted. Lung sounds are clear and heart sounds normal/regular. Right chest dialysis catheter dressing is CDI; Right upper arm fistula has audible bruit and palpable thrill. No new concerns, call light in reach.
[2020-08-31 23:16] VITALS: BP 157/59; PULSE 61; TEMP 98.1
[2020-09-01 03:51] VITALS: BP 138/48; PULSE 57; TEMP 97.4
[2020-09-01 06:26] LABS: PROTHROMBIN TIME 11.7 SECONDS (9.7-12.8)
[2020-09-01 06:34] LABS: BILIRUBIN,TOTAL 1.1 mg/dL (0.0-1.0); TOTAL PROTEIN 8.2 gm/dL (6.4-8.2)
[2020-09-01 06:59] LABS: BILIRUBIN UNCONJUGATED 0.5 mg/dL (0.0-1.1); BILIRUBIN,DIRECT 0.5 mg/dL (0.0-0.4)
[2020-09-01 07:57] VITALS: BP 158/61; PULSE 55; TEMP 98
[2020-09-01 11:27] LABS: ANA SCREEN with REFLEX Negative (Negative)
[2020-09-01 12:05] VITALS: BP 147/54; PULSE 55; TEMP 98.1
[2020-09-01 13:44] LABS: BASO # 0.1 (0.0-0.2); BASO % 0.5 % (0.0-2.0); EOS % 9.8 % (0-4.0); GRAN # 7.7 (1.4-6.5); GRAN % 77.8 % (42.2-75.2); LYMPH # 0.5 (1.2-3.4); LYMPH % 4.9 % (20.0-51.0); MEAN CELL VOLUME 93 fl (80.0-100.0); MEAN CORPUSCULAR HGB CONC 32 g/dl (33.0-37.0); MEAN PLATELET VOLUME 11.4 fl (7.4-10.4); MONO # 0.6 (0.1-0.6); MONO % 6.3 % (1.7-9.3); PLATELET COUNT 176 K/mm3 (130-400); RED BLOOD COUNT 3.26 M/mm3 (4.10-5.30); REDCELL DISTRIBUTION WIDTH-CV 17.7 % (11.5-14.5)
[2020-09-01 13:48] LABS: HEMATOCRIT 30.3 % (37.0-47.0); HEMOGLOBIN 9.7 g/dl (12.5-16.0); MEAN CORPUSCULAR HEMOGLOBIN 30 pg (27.0-31.0)
[2020-09-01 13:52] LABS: ALBUMIN 3.5 gm/dL (3.5-5.0); CALCIUM 8.5 mg/dL (8.4-10.2); CREATININE, serum 4.13 (0.52-1.25); PHOSPHOROUS 5.5 mg/dL (2.5-4.5); POTASSIUM 4.3 mmol/L (3.4-5.0)
--- NOTE | 2020-09-01 13:57 | NUR ---
Primary nurse was assisted with [id number] patient care by [employer] student Umm Agee and [employer] instructor Nidhi Fuller MSN, RN
--- NOTE | 2020-09-01 16:33 | NUR ---
Patient tolerated HD tx, removed 2.2L of fluid. Next HD tx planned for tomorrow, Saturday09/02/20 @ noon.
--- NOTE | 2020-09-01 16:34 | NUR ---
Mechanical Estimator faxed clinical updates to [facility]. Both facilities can accept. Valorie, IPR Director advised that she can accept, which is patient's first preference. SW contacted patient's daughter Milagros to notify her that IPR can accept. Milagros is happy with this and agrees that this would be first preference.
[2020-09-01 17:10] VITALS: BP 147/54; PULSE 55; TEMP 98.1
[2020-09-01 17:20] VITALS: BP 147/54; PULSE 55; TEMP 98.1
--- NOTE | 2020-09-01 17:50 | NUR ---
Patient is transferring to [facility], I have called and given report to DEBORAH Gallego , transferred patient and her belongings to room 334 by wheelchair, at thistime she is on room air and O2 sats are 94%, she just fininshed with dialysis as well
[2020-09-02 12:38] LABS: ANTISMOOTH MUSCLE ANTIBODY Negative (Negative)
[2020-12-02] MEDS ORDERED: CORDARONE200 MG/TAB PO (08:04)
[2020-12-02] MEDS ORDERED: PACERONE100 MG PO (08:05)
[2020-12-02] MEDS ORDERED: NORVASC2.5 MG PO (08:06)
[2020-12-02] MEDS ORDERED: ESTRACE0.5 MG PO (08:08)
[2020-12-02] MEDS ORDERED: REGLAN 5MG T5 MG/TAB PO (08:09)
[2020-12-02] MEDS ORDERED: PROTONIX 40MG T40 MG PO (08:12)
[2020-12-02] MEDS ORDERED: DEMADEX 20MG20 M1 PO (08:13)
== END 2020-09-01 17:51 | DRG 189 ==
LOC: COL.ER 08:48 → MEDICAL 10:52
PROVIDERS: Emergency Medicine; Internal Medicine Gastroenterology; ADMIT Internal Medicine Nephrology
PROC: 5A1D70Z Performance of Urinary Filtration, Intermittent, Less than 6 Hours Per Day (ICD-10-PCS; principal; 2020-08-29)
DX: J96.01 Acute respiratory failure with hypoxia (principal); N18.6 End stage renal disease; I16.1 Hypertensive emergency; I50.32 Chronic diastolic (congestive) heart failure; K86.2 Cyst of pancreas; E44.0 Moderate protein-calorie malnutrition; I13.2 Hypertensive heart and chronic kidney disease with heart failure and with stage 5 chronic kidney disease, or end stage renal disease; I48.0 Paroxysmal atrial fibrillation; E03.9 Hypothyroidism, unspecified; R79.89 Other specified abnormal findings of blood chemistry; D63.1 Anemia in chronic kidney disease; Z85.3 Personal history of malignant neoplasm of breast; Z99.2 Dependence on renal dialysis; Z86.718 Personal history of other venous thrombosis and embolism; Z88.0 Allergy status to penicillin; Z88.1 Allergy status to other antibiotic agents; Z79.82 Long term (current) use of aspirin; Z91.14 Patient's other noncompliance with medication regimen
CPT/HCPCS: J1644; J7030; Q5105; Q9967

== ENCOUNTER 2020-09-01 13:53 | Inpatient (IN) | payer MEDICARE, MEDICAID ==
[~2020-09-01] VITALS: Ht 165.1 cm; Wt 51.3 kg
[~2020-09-01 13:53] MED LIST changes: +APRESOLINE 25MG25 MG PO; +NORVASC 5MG5 MG/TAB PO; +PHOS LO PO; +THE MEDICINE S200 M2 PO
[2020-09-01 18:45] VITALS: BP 161/66; PULSE 60; TEMP 97.5
[2020-09-02 05:01] VITALS: BP 139/50; PULSE 54; TEMP 97.5
[2020-09-02 14:53] LABS: BASO # 0.1 (0.0-0.2); BASO % 0.6 % (0.0-2.0); EOS # 0.9 (0.0-0.7); EOS % 9.6 % (0-4.0); GRAN # 6.8 (1.4-6.5); GRAN % 75.7 % (42.2-75.2); HEMATOCRIT 30.5 % (37.0-47.0); HEMOGLOBIN 9.8 g/dl (12.5-16.0); LYMPH # 0.6 (1.2-3.4); LYMPH % 6.7 % (20.0-51.0); MEAN CELL VOLUME 92 fl (80.0-100.0); MEAN CORPUSCULAR HEMOGLOBIN 30 pg (27.0-31.0); MEAN CORPUSCULAR HGB CONC 32 g/dl (33.0-37.0); MONO # 0.6 (0.1-0.6); MONO % 6.8 % (1.7-9.3); PLATELET COUNT 182 K/mm3 (130-400); REDCELL DISTRIBUTION WIDTH-CV 17.7 % (11.5-14.5)
[2020-09-02 14:54] LABS: ALBUMIN 3.7 gm/dL (3.5-5.0); CALCIUM 8.6 mg/dL (8.4-10.2); CREATININE, serum 4.47 (0.52-1.25); PHOSPHOROUS 6.1 mg/dL (2.5-4.5); POTASSIUM 4.4 mmol/L (3.4-5.0)
[2020-09-02 17:37] VITALS: BP 150/55; PULSE 56; TEMP 98.4
[2020-09-02 20:12] VITALS: BP 139/56
[2020-09-03 04:16] VITALS: BP 140/59; PULSE 79; TEMP 98
[2020-09-03 17:50] VITALS: BP 135/44; PULSE 57; TEMP 97.5
[2020-09-03 21:07] VITALS: BP 144/49
[2020-09-04 05:25] VITALS: BP 145/57; PULSE 52; TEMP 97.7
[2020-09-04 16:51] VITALS: BP 136/52; PULSE 50; TEMP 97.3
[2020-09-04 20:24] VITALS: BP 138/60
[2020-09-05 05:41] VITALS: BP 127/40; PULSE 48; TEMP 97.3
[2020-09-05 15:01] VITALS: BP 122/79; PULSE 47; TEMP 97.5
[2020-09-05 16:14] LABS: BASO # 0.1 (0.0-0.2); BASO % 0.9 % (0.0-2.0); EOS # 0.6 (0.0-0.7); EOS % 8.6 % (0-4.0); GRAN # 5.5 (1.4-6.5); GRAN % 73.9 % (42.2-75.2); HEMATOCRIT 30.1 % (37.0-47.0); HEMOGLOBIN 9.7 g/dl (12.5-16.0); LYMPH # 0.7 (1.2-3.4); MEAN CELL VOLUME 90 fl (80.0-100.0); MEAN CORPUSCULAR HEMOGLOBIN 29 pg (27.0-31.0); MEAN CORPUSCULAR HGB CONC 32 g/dl (33.0-37.0); MEAN PLATELET VOLUME 11.5 fl (7.4-10.4); MONO # 0.5 (0.1-0.6); MONO % 7.1 % (1.7-9.3); PLATELET COUNT 193 K/mm3 (130-400); RED BLOOD COUNT 3.36 M/mm3 (4.10-5.30); REDCELL DISTRIBUTION WIDTH-CV 17.2 % (11.5-14.5)
[2020-09-05 16:27] LABS: ALBUMIN 3.9 gm/dL (3.5-5.0); CALCIUM 8.9 mg/dL (8.4-10.2); CREATININE, serum 6.29 (0.52-1.25); PHOSPHOROUS 7.2 mg/dL (2.5-4.5); POTASSIUM 4.8 mmol/L (3.4-5.0)
[2020-09-05 20:30] VITALS: BP 152/62
[2020-09-06 04:45] VITALS: BP 117/40; PULSE 49; TEMP 97.8
[2020-09-06 16:15] VITALS: BP 126/39; PULSE 48; TEMP 97.4
[2020-09-06 16:24] VITALS: BP 126/42
[2020-09-07 04:48] VITALS: BP 135/45; PULSE 50; TEMP 98.5
[2020-09-07 13:50] LABS: BASO # 0.1 (0.0-0.2); BASO % 0.9 % (0.0-2.0); EOS # 0.8 (0.0-0.7); EOS % 8.8 % (0-4.0); GRAN # 6.2 (1.4-6.5); GRAN % 72.7 % (42.2-75.2); HEMATOCRIT 31.6 % (37.0-47.0); HEMOGLOBIN 10.2 g/dl (12.5-16.0); LYMPH # 0.8 (1.2-3.4); LYMPH % 8.9 % (20.0-51.0); MEAN CELL VOLUME 90 fl (80.0-100.0); MEAN CORPUSCULAR HEMOGLOBIN 29 pg (27.0-31.0); MEAN CORPUSCULAR HGB CONC 32 g/dl (33.0-37.0); MEAN PLATELET VOLUME 11.7 fl (7.4-10.4); MONO # 0.7 (0.1-0.6); PLATELET COUNT 218 K/mm3 (130-400); RED BLOOD COUNT 3.51 M/mm3 (4.10-5.30); REDCELL DISTRIBUTION WIDTH-CV 17.4 % (11.5-14.5)
[2020-09-07 14:03] LABS: BILIRUBIN,TOTAL 0.7 mg/dL (0.0-1.0); CREATININE, serum 5.02 (0.52-1.25); POTASSIUM 4.7 mmol/L (3.4-5.0); TOTAL PROTEIN 8.4 gm/dL (6.4-8.2)
[2020-09-07 17:20] VITALS: BP 183/59; PULSE 63; TEMP 97.9
[2020-09-07 19:48] VITALS: BP 162/70; PULSE 62
[2020-09-08 05:44] VITALS: BP 125/44; PULSE 58; TEMP 97.8
[2020-09-08] MEDS ORDERED: PACERONE200 MG PO (08:40)
[2020-09-08] MEDS ORDERED: DEEP SEA 45 ML45 ML NS (08:41)
[2020-12-02] MEDS ORDERED: CORDARONE200 MG/TAB PO (08:04)
[2020-12-02] MEDS ORDERED: PACERONE100 MG PO (08:05)
[2020-12-02] MEDS ORDERED: NORVASC2.5 MG PO (08:06)
[2020-12-02] MEDS ORDERED: ESTRACE0.5 MG PO (08:08)
[2020-12-02] MEDS ORDERED: REGLAN 5MG T5 MG/TAB PO (08:09)
[2020-12-02] MEDS ORDERED: PROTONIX 40MG T40 MG PO (08:12)
[2020-12-02] MEDS ORDERED: DEMADEX 20MG20 M1 PO (08:13)
== END 2020-09-08 11:40 | disposition home health service (06) | DRG 189 ==
PROVIDERS: Internal Medicine Nephrology; ADMIT Internal Medicine
PROC: 5A1D70Z Performance of Urinary Filtration, Intermittent, Less than 6 Hours Per Day (ICD-10-PCS; principal; 2020-09-01)
DX: J96.01 Acute respiratory failure with hypoxia (principal); N18.6 End stage renal disease; I16.1 Hypertensive emergency; I50.32 Chronic diastolic (congestive) heart failure; I13.2 Hypertensive heart and chronic kidney disease with heart failure and with stage 5 chronic kidney disease, or end stage renal disease; E87.1 Hypo-osmolality and hyponatremia; I48.0 Paroxysmal atrial fibrillation; R94.5 Abnormal results of liver function studies; E03.9 Hypothyroidism, unspecified; Z99.2 Dependence on renal dialysis; D63.1 Anemia in chronic kidney disease; R26.89 Other abnormalities of gait and mobility; Z73.6 Limitation of activities due to disability; Z79.82 Long term (current) use of aspirin; Z79.899 Other long term (current) drug therapy; Z91.14 Patient's other noncompliance with medication regimen; E83.39 Other disorders of phosphorus metabolism; Z96.641 Presence of right artificial hip joint; Z86.73 Personal history of transient ischemic attack (TIA), and cerebral infarction without residual deficits; Z87.01 Personal history of pneumonia (recurrent); Z85.3 Personal history of malignant neoplasm of breast; Z88.1 Allergy status to other antibiotic agents
CPT/HCPCS: 99222-AI; 99231-AI; 99232-AI; 99239; J1644; J7030; Q5105

== ENCOUNTER 2020-09-21 08:06 | Outpatient (CLI) | payer MEDICARE, MEDICAID ==
[2020-09-21] VITALS (7 sets, daily range): BP systolic 129–153; BP diastolic 48–69; PULSE 45–79; TEMP 97
[~2020-09-21] VITALS: Ht 165.2 cm; Wt 51.0 kg
[~2020-09-21 08:06] MED LIST changes: +DEEP SEA 45 ML45 ML NS; +PACERONE200 MG PO
[2020-09-21] MEDS ORDERED: ESTRACE 1MG1 MG/TAB PO (08:56)
--- NOTE | 2020-09-21 10:40 | NUR ---
pt to eu 10 via bed from cytology laboratory manager, pt is awake, no c/o, daughter at bedside bandaid over right upper arm site clean and dry. call light in reach, takes juice
--- NOTE | 2020-09-21 11:30 | NUR ---
pt sits up in bed eats lunch, no c/o or changes
--- NOTE | 2020-09-21 12:00 | NUR ---
reviewed discharge inst. with pt and daughter on moderate sedation, precautions and care of site with verbal understanding. iv d'cd intact. pt up in room dressed, discharged via w/c to car at 1235
[2020-12-02] MEDS ORDERED: CORDARONE200 MG/TAB PO (08:04)
[2020-12-02] MEDS ORDERED: PACERONE100 MG PO (08:05)
[2020-12-02] MEDS ORDERED: NORVASC2.5 MG PO (08:06)
[2020-12-02] MEDS ORDERED: ESTRACE0.5 MG PO (08:08)
[2020-12-02] MEDS ORDERED: REGLAN 5MG T5 MG/TAB PO (08:09)
[2020-12-02] MEDS ORDERED: PROTONIX 40MG T40 MG PO (08:12)
[2020-12-02] MEDS ORDERED: DEMADEX 20MG20 M1 PO (08:13)
== END 2020-09-21 12:35 | disposition home or self-care (01) ==
LOC: COL.CAR 08:06
DX: T82.858A Stenosis of other vascular prosthetic devices, implants and grafts, initial encounter (principal); N18.6 End stage renal disease; I51.9 Heart disease, unspecified; Z96.641 Presence of right artificial hip joint; Z88.0 Allergy status to penicillin; Z88.1 Allergy status to other antibiotic agents; Z99.2 Dependence on renal dialysis; Z79.899 Other long term (current) drug therapy; Z79.82 Long term (current) use of aspirin; Z20.822 Contact with and (suspected) exposure to COVID-19
CPT/HCPCS: C1725; C1769; C1894; J1644; J2250; J3010; Q9967

== ENCOUNTER 2020-10-05 15:52 | Inpatient (IN) | payer MEDICARE, MEDICAID ==
[~2020-10-05] VITALS: Ht 165.1 cm; Wt 55.0 kg
[~2020-10-05 15:52] MED LIST changes: +ESTRACE 1MG1 MG/TAB PO
[2020-10-05 17:41] LABS: ALBUMIN 4.1 gm/dL (3.5-5.0); BILIRUBIN,TOTAL 2.1 mg/dL (0.0-1.0); CALCIUM 8.8 mg/dL (8.4-10.2); CREATININE, serum 3.18 (0.52-1.25); POTASSIUM 5.1 mmol/L (3.4-5.0); TOTAL PROTEIN 8.7 gm/dL (6.4-8.2)
[2020-10-05 17:54] LABS: INR 1.1 (0.8-3.0); PROTHROMBIN TIME 11.9 SECONDS (9.7-12.8)
[2020-10-05 18:22] LABS: BASO # 0.1 (0.0-0.2); BASO % 0.9 % (0.0-2.0); EOS # 0.3 (0.0-0.7); EOS % 2.9 % (0-4.0); GRAN # 6.8 (1.4-6.5); GRAN % 78.6 % (42.2-75.2); LYMPH # 0.8 (1.2-3.4); LYMPH % 9.1 % (20.0-51.0); MEAN CELL VOLUME 91 fl (80.0-100.0); MEAN CORPUSCULAR HGB CONC 31 g/dl (33.0-37.0); MEAN PLATELET VOLUME 10.8 fl (7.4-10.4); MONO # 0.7 (0.1-0.6); MONO % 7.9 % (1.7-9.3); PLATELET COUNT 192 K/mm3 (130-400); RED BLOOD COUNT 3.51 M/mm3 (4.10-5.30); REDCELL DISTRIBUTION WIDTH-CV 18.3 % (11.5-14.5)
[2020-10-05 18:24] LABS: HEMATOCRIT 31.8 % (37.0-47.0); HEMOGLOBIN 9.8 g/dl (12.5-16.0); MEAN CORPUSCULAR HEMOGLOBIN 28 pg (27.0-31.0)
[2020-10-05] MEDS ORDERED: REGLAN 5MG T5 MG/TAB PO (19:52)
[2020-10-05 20:24] VITALS: BP 149/57; PULSE 54; TEMP 97.3
[2020-10-05 20:41] LABS: CHOLESTEROL RISK RATIO 2.6
[2020-10-05 23:56] VITALS: BP 148/50; PULSE 54; TEMP 97.1
[2020-10-06 03:47] VITALS: BP 145/54; PULSE 55; TEMP 97.5
--- NOTE | 2020-10-06 05:05 | NUR ---
PATIENT WAS ADMITTED TO ROOM 316 FROM THE ER. PATIENT IS A&O X'4, DENIES PAIN, ON 2L NC WHICH IS BASELINE FOR HER AT NIGHT, ORIENTED TO ROOM, BED IN LOWEST POSITION, AND CALL LIGHT WITHIN REACH. PATIENT REPORTS SHE IS ITCHING AND THIS HAS BEEN GOING ON FOR SEVERAL DAYS. BENADRYL ADMINISTERED LAST NIGHT AND HELPED. BENADRYL ONLY ORDERED AT HS, WILL PASS THIS INFORMATION ONTO DAY SHIFT NURSE. PATIENT ABLE TO INDEPENDENTLY GET TO THE BEDSIDE COMMODE WITH SBA. NO NEW ISSUES NOTED OR REPORTED BY PATIENT.
[2020-10-06 08:01] VITALS: BP 153/56; PULSE 54; TEMP 97.3
--- NOTE | 2020-10-06 08:15 | NUR ---
Patient is going to dialysis. She was sleeping fairly hard this morning before going. No other changes at this time.
[2020-10-06 09:41] LABS: BASO # 0.1 (0.0-0.2); BASO % 0.9 % (0.0-2.0); EOS # 0.5 (0.0-0.7); EOS % 6.1 % (0-4.0); GRAN # 5.4 (1.4-6.5); GRAN % 73.8 % (42.2-75.2); HEMATOCRIT 31.1 % (37.0-47.0); HEMOGLOBIN 9.9 g/dl (12.5-16.0); LYMPH # 0.8 (1.2-3.4); LYMPH % 10.4 % (20.0-51.0); MEAN CELL VOLUME 89 fl (80.0-100.0); MEAN CORPUSCULAR HEMOGLOBIN 28 pg (27.0-31.0); MEAN CORPUSCULAR HGB CONC 32 g/dl (33.0-37.0); MEAN PLATELET VOLUME 11.4 fl (7.4-10.4); MONO # 0.6 (0.1-0.6); MONO % 8.3 % (1.7-9.3); PLATELET COUNT 205 K/mm3 (130-400); REDCELL DISTRIBUTION WIDTH-CV 18.1 % (11.5-14.5)
[2020-10-06 09:50] LABS: ALBUMIN 3.6 gm/dL (3.5-5.0); CALCIUM 8.4 mg/dL (8.4-10.2); CREATININE, serum 3.46 (0.52-1.25); PHOSPHOROUS 4.2 mg/dL (2.5-4.5); POTASSIUM 4.5 mmol/L (3.4-5.0)
[2020-10-06 12:58] VITALS: BP 163/49; PULSE 59
--- NOTE | 2020-10-06 13:00 | NUR ---
Patient is back from dialysis. Patient denies pain and nausea. She stated she is very worn out and tired after dialysis. Reminded her of her fluid restriction. She verbalized understanding. She is eating her lunch at this time. She was able to eat about 1/2 before she stated she was full. No other changes at this time. Call light within reach.
--- NOTE | 2020-10-06 13:02 | NUR ---
Patient tolerated HD tx with 3.6L fluid removal. Next HD tx planned for tomorrow, Saturday10/07/20 @ 0800.
--- NOTE | 2020-10-06 16:03 | NUR ---
Courtroom Deputy Or Calendar Clerk met with patient to discuss discharge planning. Patient is agreeable to answer questions but reports she is very tired from dialysis and would like to get some rest. Patient lives in [place] with her daughter, Milagros (ph#[phone]) [address] Dr. Moore for primary care. Patient obtains medications from [facility]. Patient has a walker and also has home oxygen through [employer]. Patient states she normally does not use the walker though. Patient reports independence with ADLS and states she plans to return home with continued services from [facility]. Patient has DPOA-HC in EMR which designates patient's daughter, Milagros as well as Tu Tena and Kala Enriquez. PT/OT have been ordered for patient and awaiting recommendations. SW contacted patient's daughter, Milagros to review discharge plan. Milagros advised that patient was recently discharged from [facility] and she feels patient was discharged too soon. Imlagros advised that patient has been getting weaker and has not been eating. Milagros reports patient's abdomen has also been filling with fluid. Milagros is tearful during this conversation as she wants to be able to help patient however she and her , Tu work during the day and patient is not able to complete her ADLS independently. MARLENI discussed the option of SNF and Milagros advised this may be what patient needs at this time. Milagros is agreeable to have referrals sent and advised her preferences would be 1)[facility] and 2) [facility]. Milagros states she would not want patient to return to [facility]. MARLENI faxed referrals to both facilities. Discharge Plan: Awaiting screen from [facility] and [facility].
[2020-10-06 16:13] VITALS: BP 131/45; PULSE 58; TEMP 97.4
[2020-10-06 17:59] LABS: GAMMA GLUTAMYL TRANSPEPTIDASE 1361 U/L (3-36)
--- NOTE | 2020-10-06 18:00 | NUR ---
Patient has been sleeping most the afternoon. She needs more reminders to stick to her fluid restriction. She is tolerating diet well, just stated she has no appetite. No other changes at this time. Call glynn burt.
[2020-10-06 19:31] VITALS: BP 144/48; PULSE 60; TEMP 98.2
[2020-10-06 23:42] VITALS: BP 142/44; PULSE 51; TEMP 98.3
[2020-10-07 04:52] VITALS: BP 109/67; PULSE 52; TEMP 97.7
--- NOTE | 2020-10-07 06:10 | NUR ---
PATIENT RESTED QUIETLY IN BED THROUGHOUT THE NIGHT. NO NEW ISSUES NOTED OR REPORTED BY PATIENT. PATIENT SITTING IN BED PLAYING GAMES ON HER TABLET AT THIS TIME.
[2020-10-07 07:27] VITALS: BP 150/51; PULSE 59; TEMP 97.3
--- NOTE | 2020-10-07 07:45 | NUR ---
Shift assessment complete. A&Ox4. Heart RRR. Lungs CTA. Denies SOA or pain. Continuing to monitor.
--- NOTE | 2020-10-07 08:00 | NUR ---
Pt down to dialysis at this time.
[2020-10-07 08:47] LABS: BASO # 0.1 (0.0-0.2); BASO % 0.9 % (0.0-2.0); EOS # 0.5 (0.0-0.7); EOS % 6.3 % (0-4.0); GRAN # 6.6 (1.4-6.5); GRAN % 77.7 % (42.2-75.2); HEMATOCRIT 32.3 % (37.0-47.0); HEMOGLOBIN 10.3 g/dl (12.5-16.0); LYMPH # 0.7 (1.2-3.4); LYMPH % 7.9 % (20.0-51.0); MEAN CELL VOLUME 89 fl (80.0-100.0); MEAN CORPUSCULAR HEMOGLOBIN 29 pg (27.0-31.0); MEAN CORPUSCULAR HGB CONC 32 g/dl (33.0-37.0); MEAN PLATELET VOLUME 10.9 fl (7.4-10.4); MONO # 0.6 (0.1-0.6); MONO % 6.6 % (1.7-9.3); PLATELET COUNT 213 K/mm3 (130-400); RED BLOOD COUNT 3.62 M/mm3 (4.10-5.30); REDCELL DISTRIBUTION WIDTH-CV 18.6 % (11.5-14.5)
[2020-10-07 08:58] LABS: ALBUMIN 3.8 gm/dL (3.5-5.0); BILIRUBIN,TOTAL 1.9 mg/dL (0.0-1.0); CALCIUM 8.7 mg/dL (8.4-10.2); CREATININE, serum 2.82 (0.52-1.25); POTASSIUM 4.3 mmol/L (3.4-5.0); TOTAL PROTEIN 7.8 gm/dL (6.4-8.2)
--- NOTE | 2020-10-07 11:14 | NUR ---
Patient tolerated HD tx with 3.3L fluid removal. Next HD tx on Saturday10/08/2020.
[2020-10-07 11:39] VITALS: BP 163/55; PULSE 63; TEMP 97.5
[2020-10-07 15:42] VITALS: BP 122/43; PULSE 58; TEMP 98.1
--- NOTE | 2020-10-07 16:24 | NUR ---
Windows Systems Engineer met with Dr. Phillips and advised that referrals for SNF were sent to [facility] and [facility]. PT is recommending SNF. Ying at [facility] advised they are following but would want more updates. Ying advised her team inquired about patient's pending cancer markers and decreasing sodium. MARLENI faxed clinical updates to both [facility] and [facility]. SW attempted to follow up with patient about discharge plan but she was asleep. Discharge Plan: Awaiting screens from [facility] and [facility].
[2020-10-07 19:37] VITALS: BP 135/58; PULSE 56; TEMP 98.1
[2020-10-08] VITALS (7 sets, daily range): BP systolic 133–156; BP diastolic 43–74; PULSE 54–61; TEMP 97.4–98.1
--- NOTE | 2020-10-08 06:04 | NUR ---
NO NEW CONCERNS NOTED OR REPORTED BY PATIENT.
--- NOTE | 2020-10-08 11:39 | NUR ---
MARLENI faxed updates 10/08/20-11:40 a.m.
--- NOTE | 2020-10-08 13:42 | NUR ---
SW update: MARLENI reached out to Dr. Phillips about patient DC plan. [facility]-Ying wanted more information on patients sodium levels decreasing and the Cancer Markers. Relayed information about sodium management through dialysis and Cancer Markers information will be provided by upcoming proceedure. MARLENI also relayed information regarding proceedure in [place] on October 17. Educated ML of this transport. ML reported that they would need to know if it is outpatient or in a hopsital setting which will determine whether they take her tomorrow or not. [facility] also requested updated lab work. Will send new clinical update on 10/09/2020. MARLENI communicated with Aluminizer Argelia of this information. Will follow-up. [facility] does not have any beds can revisit saturday
[2020-10-08 15:23] LABS: BASO # 0.1 (0.0-0.2); EOS # 0.5 (0.0-0.7); EOS % 6.9 % (0-4.0); GRAN # 5.6 (1.4-6.5); GRAN % 76.9 % (42.2-75.2); HEMATOCRIT 33.8 % (37.0-47.0); HEMOGLOBIN 10.7 g/dl (12.5-16.0); LYMPH # 0.6 (1.2-3.4); LYMPH % 8.4 % (20.0-51.0); MEAN CELL VOLUME 91 fl (80.0-100.0); MEAN CORPUSCULAR HEMOGLOBIN 29 pg (27.0-31.0); MEAN CORPUSCULAR HGB CONC 32 g/dl (33.0-37.0); MEAN PLATELET VOLUME 11.2 fl (7.4-10.4); MONO # 0.5 (0.1-0.6); MONO % 6.3 % (1.7-9.3); PLATELET COUNT 212 K/mm3 (130-400); RED BLOOD COUNT 3.72 M/mm3 (4.10-5.30); REDCELL DISTRIBUTION WIDTH-CV 18.6 % (11.5-14.5)
[2020-10-08 15:32] LABS: ALBUMIN 3.8 gm/dL (3.5-5.0); BILIRUBIN,TOTAL 1.3 mg/dL (0.0-1.0); CALCIUM 8.6 mg/dL (8.4-10.2); CREATININE, serum 3.14 (0.52-1.25); POTASSIUM 4.3 mmol/L (3.4-5.0); TOTAL PROTEIN 7.9 gm/dL (6.4-8.2)
--- NOTE | 2020-10-08 19:11 | NUR ---
PATIENT HAD UNEVENTFUL DAY - NO DIALYSIS THIS DAY. PATIENT VOICED NO CONCERNS AND OFFERED N/C OF DISCOMFORT.
[2020-10-09 04:33] VITALS: BP 128/44; PULSE 60; TEMP 98.1
--- NOTE | 2020-10-09 05:11 | NUR ---
NO NEW ISSUES NOTED OR REPORTED BY PATIENT.
[2020-10-09 08:22] VITALS: BP 152/47; PULSE 58; TEMP 98
[2020-10-09 11:26] VITALS: BP 150/59; PULSE 60; TEMP 98.1
--- NOTE | 2020-10-09 13:10 | NUR ---
SW update: Plan is to transfer to [facility] at 04:00 pm. Patient is in [place] for 2 hours, notified Mrs. Robledo of update. Will faxe DC orders.
[2020-10-09] MEDS ORDERED: REGLAN 5MG T5 MG/TAB PO (14:24)
[2020-10-09] MEDS ORDERED: NORVASC2.5 MG PO (14:26)
[2020-10-09] MEDS ORDERED: ESTRACE0.5 MG PO (14:27)
[2020-10-09 14:53] VITALS: BP 150/59; PULSE 60; TEMP 98.1
--- NOTE | 2020-10-09 14:59 | NUR ---
MARLENI faxed DC order to [facility] 02:59pm. Transfer to 4:00 p.m.
--- NOTE | 2020-10-09 16:19 | NUR ---
PATIENT HAD 2 HR DIALYSIS THIS DAY PRIOR TO DISCHARGE. PATIENT IS GOOD SPIRITS ABOUT TRANSFER. DC TO [facility] PER RENATO RANGEL. REPORT CALLED TO DEBORAH ATWOOD. DC PACKET SENT TO FACILITY.
[2020-12-02] MEDS ORDERED: CORDARONE200 MG/TAB PO (08:04)
[2020-12-02] MEDS ORDERED: PACERONE100 MG PO (08:05)
[2020-12-02] MEDS ORDERED: NORVASC2.5 MG PO (08:06)
[2020-12-02] MEDS ORDERED: ESTRACE0.5 MG PO (08:08)
[2020-12-02] MEDS ORDERED: REGLAN 5MG T5 MG/TAB PO (08:09)
[2020-12-02] MEDS ORDERED: PROTONIX 40MG T40 MG PO (08:12)
[2020-12-02] MEDS ORDERED: DEMADEX 20MG20 M1 PO (08:13)
== END 2020-10-09 16:19 | DRG 438 ==
LOC: COL.ER 15:52 → MEDICAL 18:30
PROVIDERS: Emergency Medicine; ADMIT Internal Medicine Nephrology
PROC: 5A1D70Z Performance of Urinary Filtration, Intermittent, Less than 6 Hours Per Day (ICD-10-PCS; principal; 2020-10-06)
DX: K86.2 Cyst of pancreas (principal); N18.6 End stage renal disease; I13.2 Hypertensive heart and chronic kidney disease with heart failure and with stage 5 chronic kidney disease, or end stage renal disease; I50.32 Chronic diastolic (congestive) heart failure; I50.20 Unspecified systolic (congestive) heart failure; E03.9 Hypothyroidism, unspecified; R53.81 Other malaise; R63.0 Anorexia; Z68.20 Body mass index [BMI] 20.0-20.9, adult; D63.1 Anemia in chronic kidney disease; Z99.2 Dependence on renal dialysis; Z96.641 Presence of right artificial hip joint; Z86.73 Personal history of transient ischemic attack (TIA), and cerebral infarction without residual deficits; Z79.82 Long term (current) use of aspirin; Z88.0 Allergy status to penicillin; Z88.1 Allergy status to other antibiotic agents
CPT/HCPCS: J1644; J2916; J7030; Q5105

== ENCOUNTER → 2020-12-02 | Outpatient (CLI) | payer MEDICARE, MEDICAID ==
[~2020-12-02] MED LIST changes: +NORVASC2.5 MG PO; +REGLAN 5MG T5 MG/TAB PO
[2020-12-02 07:44] VITALS: BP 146/69; PULSE 52
[2020-12-02 08:32] VITALS: BP 150/65; PULSE 53
== END ==
LOC: COL.RAD 06:55
DX: Z49.01 Encounter for fitting and adjustment of extracorporeal dialysis catheter (principal)

== ENCOUNTER 2021-06-05 17:56 | Inpatient (IN) | payer MEDICARE, MEDICAID ==
[~2021-06-05] VITALS: Ht 160 cm; Wt 56.0 kg
[2021-06-05 19:03] LABS: BASO # 0.1 K/mm3 (0.0-0.2); BASO % 0.6 % (0.0-2.0); EOS # 0.1 K/mm3 (0.0-0.7); EOS % 1.1 % (0.0-4.0); GRAN # 6.7 K/mm3 (1.4-6.5); GRAN % 78.5 % (42.2-75.2); HEMOGLOBIN 12.1 g/dl (12.5-16.0); LYMPH # 0.7 K/mm3 (1.2-3.4); LYMPH % 8.3 % (20.0-51.0); MEAN CELL VOLUME 100 fl (80.0-100.0); MEAN CORPUSCULAR HEMOGLOBIN 34 pg (27-31); MEAN CORPUSCULAR HGB CONC 34 g/dl (33.0-37.0); MEAN PLATELET VOLUME 11.3 fl (7.4-10.4); MONO # 0.9 K/mm3 (0.1-0.6); MONO % 10.7 % (1.7-9.3); PLATELET COUNT 131 K/mm3 (130-400); RED BLOOD COUNT 3.55 M/mm3 (4.10-5.30); REDCELL DISTRIBUTION WIDTH-CV 16.2 % (11.5-14.5)
[2021-06-05 19:18] LABS: HEMATOCRIT 35.6 % (37.0-47.0)
[2021-06-05 19:19] LABS: ALBUMIN 3.2 gm/dL (3.4-4.8); BILIRUBIN,TOTAL 1.4 mg/dL (0.2-1.2); CALCIUM 10.2 mg/dL (8.4-10.2); CREATININE, serum 4.09 mg/dL (0.57-1.11); POTASSIUM 4.1 mmol/L (3.5-4.5); TOTAL PROTEIN 7.4 gm/dL (6.2-8.1)
[2021-06-05 19:20] LABS: MUCOUS Present (NOT PRESENT); PH 5 (5-8); SQUAMOUS EPITHELIAL None Seen /hpf (0-10); URINE APPEARANCE Hazy (CLEAR/HAZY); URINE BACTERIA Rare /hpf (NONE SEEN); URINE BILIRUBIN Negative (NEGATIVE); URINE BLOOD 1+ (NEGATIVE); URINE COLOR Yellow (YELLOW); URINE GLUCOSE Negative (NEGATIVE); URINE KETONE Negative (NEGATIVE); URINE LEUKOCYTE ESTERASE 1+ (NEGATIVE); URINE NITRATE Negative (NEGATIVE); URINE PROTEIN(semi-quant) Negative (NEGATIVE); URINE UROBILINOGEN Negative (NEGATIVE)
[2021-06-05 19:21] LABS: COLLECTION METHOD CATHETER
[2021-06-05 19:29] LABS: TROPONIN-I 0.044 ng/mL (0.00-0.033)
[2021-06-05 21:48] LABS: MAGNESIUM 2.2 mg/dL (1.6-2.6); PHOSPHOROUS 3.5 mg/dL (2.3-4.7)
[2021-06-06] MEDS ORDERED: MELATONIN5 M1 SL (03:22)
[2021-06-06 07:51] LABS: BASO # 0.1 K/mm3 (0.0-0.2); BASO % 0.9 % (0.0-2.0); EOS # 0.1 K/mm3 (0.0-0.7); EOS % 0.7 % (0.0-4.0); GRAN # 6.7 K/mm3 (1.4-6.5); GRAN % 81.4 % (42.2-75.2); HEMOGLOBIN 11.6 g/dl (12.5-16.0); LYMPH # 0.6 K/mm3 (1.2-3.4); LYMPH % 7.2 % (20.0-51.0); MEAN CELL VOLUME 100 fl (80.0-100.0); MEAN CORPUSCULAR HEMOGLOBIN 34 pg (27-31); MEAN CORPUSCULAR HGB CONC 34 g/dl (33.0-37.0); MONO # 0.7 K/mm3 (0.1-0.6); MONO % 8.9 % (1.7-9.3); PLATELET COUNT 127 K/mm3 (130-400); RED BLOOD COUNT 3.42 M/mm3 (4.10-5.30); REDCELL DISTRIBUTION WIDTH-CV 16.2 % (11.5-14.5)
[2021-06-06 07:54] LABS: HEMATOCRIT 34.2 % (37.0-47.0)
[2021-06-06 08:00] LABS: CALCIUM 9.4 mg/dL (8.4-10.2); CREATININE, serum 4.14 mg/dL (0.57-1.11); POTASSIUM 3.8 mmol/L (3.5-4.5)
[2021-06-06 08:29] VITALS: BP 143/39; PULSE 62; TEMP 97.8
[2021-06-06 12:30] VITALS: BP 145/43; PULSE 62; TEMP 98.6
--- NOTE | 2021-06-06 15:37 | NUR ---
PATIENT TOLERATED HER HD TX WITH 3.5L OF FLUID OFF. NEXT PLANNED HD TX PENDING LABS & ASSESSMENT.
[2021-06-06 15:50] VITALS: BP 177/72; PULSE 70; TEMP 97.7
--- NOTE | 2021-06-06 16:14 | NUR ---
landing worker attempted to speak with the patient but upon entering the room but patient resting and unarousable. Patient's daughter Milagros ([phone]) contacted and much of the intake information obtained from Milagros. Milagros states that the patient lives in the [facility] [facility] at [facility]. She has been independent with her activities of daily living, but as of recent she has needed more assistance from the LTC staff. Patient had been able to ambulate with out any DME to assist but due to her weakness in recent weeks, she has had to use a walker to assist. Milagros states that the patient is on 2L of NC oxygen which she get's through [facility], but unknown of what company. PCP is Dr. Moore and [facility] "handles" her medications.Patient has a DPOA-HC on [facility] listing her daughter Milagros as her primary agent.Spoke with Milagros about recommendation of SNF upon discharge. Milagros is in agreement with this recommendation and verbalizes that she is going to stop by [facility] to picking crew supervisor a few of her mother's things and they head up to the hospital to visit. Hugo with [facility] contacted and notified that so far OT is recommending SNF upon dc, but that PT did not have their eval in yet. Hugo states that the patient coming back skilled will not be an issue. If [facility] is full, the patient will be able to do skilled therapy in her apartment. Discharge plan: [facility] SNF
[2021-06-06 20:45] VITALS: BP 168/57; PULSE 68; TEMP 98.4
--- NOTE | 2021-06-06 22:53 | NUR ---
Patient resting in bed with eyes closed upon enter the room. Patient arousable with calling her name. Patient A/Ox2. Patient apears very weak and tired. Occasional moist cough noted. Shift assessment completed. Patient currently on 2L oxygen via NC. Breathing even and unlabored. No acute respiratory distress noted. Scheduled meds given per AUG. Noticed patient coughing with taking pills. Crushed medication in pudding. Some coughing noted with taking medications and drinking water. HOB maintained elevated 60 degrees. Aspiratory precaution maintained. Patient denies any pain or discomfort. Right upper arm fistula site dressing C/D/I. Call light in reach. Fall precaution maintained. Will continue to monitor.
[2021-06-07 00:06] VITALS: BP 152/51; PULSE 61; TEMP 97.4
--- NOTE | 2021-06-07 01:03 | NUR ---
Patient started NPO from midnight for ST evaluation in AM.
[2021-06-07 04:55] VITALS: BP 132/42; PULSE 56; TEMP 97.6
[2021-06-07 06:34] LABS: BASO # 0.1 K/mm3 (0.0-0.2); BASO % 0.7 % (0.0-2.0); EOS # 0.2 K/mm3 (0.0-0.7); EOS % 2.8 % (0.0-4.0); GRAN # 5.2 K/mm3 (1.4-6.5); HEMOGLOBIN 11.5 g/dl (12.5-16.0); LYMPH # 0.5 K/mm3 (1.2-3.4); LYMPH % 7.5 % (20.0-51.0); MEAN CELL VOLUME 104 fl (80.0-100.0); MEAN CORPUSCULAR HEMOGLOBIN 34 pg (27-31); MEAN CORPUSCULAR HGB CONC 33 g/dl (33.0-37.0); MEAN PLATELET VOLUME 11.2 fl (7.4-10.4); MONO # 0.7 K/mm3 (0.1-0.6); MONO % 10.3 % (1.7-9.3); PLATELET COUNT 138 K/mm3 (130-400); RED BLOOD COUNT 3.35 M/mm3 (4.10-5.30); REDCELL DISTRIBUTION WIDTH-CV 16.8 % (11.5-14.5)
[2021-06-07 06:35] LABS: HEMATOCRIT 34.7 % (37.0-47.0)
[2021-06-07 07:12] LABS: CREATININE, serum 2.88 mg/dL (0.57-1.11); POTASSIUM 3.6 mmol/L (3.5-4.5)
[2021-06-07 07:25] LABS: TROPONIN-I 0.122 ng/mL (0.00-0.033)
[2021-06-07 08:02] VITALS: BP 144/45; PULSE 59; TEMP 98.2
[2021-06-07 12:22] VITALS: BP 148/45; PULSE 54; TEMP 98.1
[2021-06-07 14:41] LABS: PLEURAL FLUID RBC 1000 /mm3 (0-0); PLEURAL FLUID WBC 177 /mm3
[2021-06-07 14:44] LABS: PLEURAL FLUID APPEARANCE CLEAR; PLEURAL FLUID COLOR YELLOW
--- NOTE | 2021-06-07 15:00 | NUR ---
ST stated patient can have thick liquids over night and aht they will do a modified barium swallow tommorow morning as patient does appear to be high aspiration risk
[2021-06-07 17:17] VITALS: BP 144/49; PULSE 89; TEMP 97.5
[2021-06-07 19:44] VITALS: BP 141/39; BP 160/58; PULSE 97; TEMP 97.7
--- NOTE | 2021-06-07 22:37 | NUR ---
Patient A/Ox3. Patient awake in bed. Patient denies any pain or SOB. Patient currently on oxygen 2L via NC. Breathing even and unlabored. No acute distress noted. Patient took sips of thick liquid. Patient tolerating thick liquid. Denies trouble swallowing. No coughing noted. HOB maintain elevated 60 degrees. Aspiration precaution maintained. Call light in reach. Will continue to monitor.
[2021-06-08] VITALS (8 sets, daily range): BP systolic 106–175; BP diastolic 46–87; PULSE 31–72; TEMP 97.5–98.6
[2021-06-08 06:10] LABS: HEMOGLOBIN 11.5 g/dl (12.5-16.0); MEAN CELL VOLUME 102 fl (80.0-100.0); MEAN CORPUSCULAR HEMOGLOBIN 34 pg (27-31); MEAN CORPUSCULAR HGB CONC 33 g/dl (33.0-37.0); MEAN PLATELET VOLUME 10.9 fl (7.4-10.4); PLATELET COUNT 139 K/mm3 (130-400); RED BLOOD COUNT 3.39 M/mm3 (4.10-5.30); REDCELL DISTRIBUTION WIDTH-CV 16.6 % (11.5-14.5)
[2021-06-08 06:21] LABS: HEMATOCRIT 34.6 % (37.0-47.0)
[2021-06-08 06:32] LABS: ALBUMIN 2.8 gm/dL (3.4-4.8); CALCIUM 8.7 mg/dL (8.4-10.2); CREATININE, serum 3.5 mg/dL (0.57-1.11); POTASSIUM 3.5 mmol/L (3.5-4.5)
--- NOTE | 2021-06-08 08:28 | NUR ---
PT OFF UNIT FOR DIALYSIS AT THIS TIME. HOLDING ALL AM MEDICATIONS FOR SWALLOW STUDY. ATTEMPTED TO CONTACT SPEECH THERAPY TO GET APPROXIMATE TIME FOR STUDY, DID NOT ANSWER PHONE. WILL ATTEMPT TO CALL AGAIN LATER.
--- NOTE | 2021-06-08 13:06 | NUR ---
PATIENT TOLERATED HD TX WITH 3.5L OF FLUID OFF. NEXT PLANNED HD TX ON Saturday06/10/21 @ 0800.
--- NOTE | 2021-06-08 17:37 | NUR ---
PT PLEASANT, SLOW TO RESPOND TO QUESTIONS, HELPED PT ORDER DINNER, UNEVENTFUL SHIFT,
--- NOTE | 2021-06-08 19:00 | NUR ---
Patient is resting in bed with son in law at the bedside. Alert and oriented, VSS, 2L NC. Able to take her medication with thick water. Generalized weakness. Fistula site covered with gauze. Multiple bruises in arms. Assessment completed, medications provided. No further needs at this time. Call light within reach.
[2021-06-09 03:53] VITALS: BP 143/48; PULSE 59; TEMP 98.6
--- NOTE | 2021-06-09 06:18 | NUR ---
Patient has had an uneventful night. Continues with HTN. Able to take her pills. 2L O2 NC. Generalized weakness. Report will be given to crow CABRERA.
[2021-06-09 08:08] VITALS: BP 136/48; PULSE 64; TEMP 97.2
[2021-06-09] MEDS ORDERED: ONE-A-DAY ESSE1 EACH PO (09:08)
[2021-06-09] MEDS ORDERED: B COMPLEX & B121 TAB PO (09:08)
[2021-06-09] MEDS ORDERED: THE MEDICINE S200 M2 PO (09:08)
[2021-06-09] MEDS ORDERED: MELATONIN5 M1 SL (09:08)
[2021-06-09] MEDS ORDERED: PROTONIX 40MG T40 MG PO (09:09)
[2021-06-09] MEDS ORDERED: COLACE 100100 MG/CAP PO (09:09)
[2021-06-09] MEDS ORDERED: ESTRACE0.5 MG PO (09:09)
[2021-06-09] MEDS ORDERED: REGLAN 5MG T5 MG/TAB PO (09:09)
[2021-06-09] MEDS ORDERED: SYNTHROID0.075 MG/T PO (09:09)
[2021-06-09] MEDS ORDERED: DEMADEX 20MG20 M1 PO (09:10)
[2021-06-09] MEDS ORDERED: DEEP SEA 45 ML45 ML NS (09:10)
[2021-06-09] MEDS ORDERED: ASPIRIN 81M81 MG/TA2 PO (09:10)
[2021-06-09] MEDS ORDERED: PHOS LO PO (09:10)
[2021-06-09] MEDS ORDERED: TOPROL XL 25MG25 MG PO (09:11)
[2021-06-09] MEDS ORDERED: PACERONE100 MG PO (09:11)
[2021-06-09] MEDS ORDERED: CORDARONE200 MG/TAB PO (09:11)
[2021-06-09] MEDS ORDERED: LIPITOR 40MG TA40 MG PO (09:11)
[2021-06-09] MEDS ORDERED: OMEGA-3 1000 MG1 CAP PO (09:11)
[2021-06-09] MEDS ORDERED: LEVAQUIN 5500 MG/TA1 PO (09:12)
--- NOTE | 2021-06-09 10:00 | NUR ---
PT RESTING IN BED. MONING MEDICATIONS GIVEN. SHIFT ASSESSMENT COMPLETED. DENIES ANY PAIN AT THIS TIME. PT ALERT AND ORIENTED AT THIS TIME. CURRENTLY ON 2L NC. WILL PREPARE FOR DISCHARGE.
--- NOTE | 2021-06-09 12:02 | NUR ---
neonatal social worker met with patient and presented IM as patient is discharging to [facility] for skilled care today. Eduar with [facility] accepts patient to skilled care today and worker faxed orders and covid testing. Worker spoke with patient's daughter, Milagros, and advised of the above information. [facility] will transport today at 11:oo via their wheelchair van.
== END 2021-06-09 13:50 | DRG 193 ==
LOC: COL.ER 17:56 → MEDICAL 20:14 → EDBEDREQ 06-06 07:54 → MEDICAL 06-09 13:50
PROVIDERS: Internal Medicine; Internal Medicine Sleep Medicine; Physician Assistant; Student in an Organized Health Care Education/Training Program; ADMIT Internal Medicine
PROC: 0W993ZZ Drainage of Right Pleural Cavity, Percutaneous Approach (ICD-10-PCS; principal; 2021-06-07)
DX: J18.9 Pneumonia, unspecified organism (principal); N18.6 End stage renal disease; I21.A1 Myocardial infarction type 2; N39.0 Urinary tract infection, site not specified; J96.11 Chronic respiratory failure with hypoxia; J90 Pleural effusion, not elsewhere classified; E46 Unspecified protein-calorie malnutrition; I50.40 Unspecified combined systolic (congestive) and diastolic (congestive) heart failure; I13.2 Hypertensive heart and chronic kidney disease with heart failure and with stage 5 chronic kidney disease, or end stage renal disease; Z66 Do not resuscitate; Z20.822 Contact with and (suspected) exposure to COVID-19; D63.1 Anemia in chronic kidney disease; I48.0 Paroxysmal atrial fibrillation; E03.9 Hypothyroidism, unspecified; I08.3 Combined rheumatic disorders of mitral, aortic and tricuspid valves; I27.20 Pulmonary hypertension, unspecified; I44.0 Atrioventricular block, first degree; K21.9 Gastro-esophageal reflux disease without esophagitis; B95.2 Enterococcus as the cause of diseases classified elsewhere; Z68.21 Body mass index [BMI] 21.0-21.9, adult; R13.10 Dysphagia, unspecified; E78.5 Hyperlipidemia, unspecified; R53.81 Other malaise; Z79.82 Long term (current) use of aspirin; Z79.890 Hormone replacement therapy; Z99.2 Dependence on renal dialysis; Z96.641 Presence of right artificial hip joint; Z86.73 Personal history of transient ischemic attack (TIA), and cerebral infarction without residual deficits; Z88.0 Allergy status to penicillin
CPT/HCPCS: 99223-AI; 99232-AI; 99233-AI; 99239; J0692; J1200; J1644; J1756; J7030

== ENCOUNTER 2021-06-16 03:59 | Inpatient (IN) | payer MEDICARE, MEDICAID ==
[~2021-06-16] VITALS: Ht 160 cm; Wt 63.9 kg
[~2021-06-16 03:59] MED LIST changes: +B COMPLEX & B121 TAB PO; +LEVAQUIN 5500 MG/TA1 PO; +MELATONIN5 M1 SL
[2021-06-16 04:51] LABS: BASO # 0.1 K/mm3 (0.0-0.2); BASO % 0.4 % (0.0-2.0); EOS % 0.1 % (0.0-4.0); GRAN # 13.5 K/mm3 (1.4-6.5); GRAN % 87.4 % (42.2-75.2); HEMOGLOBIN 11.6 g/dl (12.5-16.0); LYMPH # 0.6 K/mm3 (1.2-3.4); LYMPH % 3.8 % (20.0-51.0); MEAN CELL VOLUME 102 fl (80.0-100.0); MEAN CORPUSCULAR HEMOGLOBIN 33 pg (27-31); MEAN CORPUSCULAR HGB CONC 33 g/dl (33.0-37.0); MEAN PLATELET VOLUME 10.3 fl (7.4-10.4); MONO # 1.2 K/mm3 (0.1-0.6); MONO % 7.5 % (1.7-9.3); PLATELET COUNT 178 K/mm3 (130-400); RED BLOOD COUNT 3.49 M/mm3 (4.10-5.30); REDCELL DISTRIBUTION WIDTH-CV 16.3 % (11.5-14.5)
[2021-06-16 04:52] LABS: HEMATOCRIT 35.7 % (37.0-47.0)
[2021-06-16 04:58] LABS: INR 1.3 (0.8-3.0); PROTHROMBIN TIME 14.5 SECONDS (9.7-12.8)
[2021-06-16 05:11] LABS: ALBUMIN 2.7 gm/dL (3.4-4.8); BILIRUBIN,TOTAL 1.6 mg/dL (0.2-1.2); C-REACTIVE PROTEIN 28.6 mg/dL (0.00-0.50); CALCIUM 10.2 mg/dL (8.4-10.2); CREATININE, serum 2.65 mg/dL (0.57-1.11); POTASSIUM 4.1 mmol/L (3.5-4.5); TOTAL PROTEIN 7.6 gm/dL (6.2-8.1)
[2021-06-16 05:18] LABS: TROPONIN-I 0.077 ng/mL (0.00-0.033)
[2021-06-16 07:46] VITALS: BP 122/42; PULSE 60; TEMP 97.6
[2021-06-16 08:56] VITALS: BP 136/53; PULSE 62; TEMP 97.7
--- NOTE | 2021-06-16 09:33 | NUR ---
SW contacted the patient's daughter, Gretchen (ph#[phone]), to discuss discharge plan. The patient resides at [facility] in [place]. The patient recently discharged from our hospital on 06/09 and went back to [facility] for a skilled stay. The patient's PCP is Dr. Moore. The patient's Living Will is in EMR, but not DPOA-HC. SW inquired if the patient has a DPOA-HC. Gretchen reports that the patient has an older one that designates her. She reports that they wanted to complete a new one that still designated her, but they did not get it notarized. Gretchen reports that [facility] should have a copy. Gretchen reports that the patient is not and that she has two children: herself and Kala Omarelmergenovevahollis. MARLENI contacted and requested a copy from Ying at [facility]. Ying reports that they will look to see if they have one. Ying reports that they will also be having the patient come back skilled upon discharge. SW to fax updates to [facility] and will continue to follow. *Discharge plan: [facility] SNF*
--- NOTE | 2021-06-16 10:06 | NUR ---
Several visit attempts; Patient sleeping, Molecular Geneticist left card so that Reyna would know of the availability of spiritual care at [facility].
--- NOTE | 2021-06-16 10:12 | NUR ---
Initial visit attempt; Patient sleeping, Career Technical Education Instructor left Prayer card letting patient know of the availability of spiritual care at our hospital.
[2021-06-16 11:10] VITALS: BP 131/49; PULSE 62; TEMP 97.5
--- NOTE | 2021-06-16 16:38 | NUR ---
PATIENT TOLERATED HD TX WITH 3L OF FLUID REMOVED. PATIENT TACHYCARDIAC 1 HOUR INTO HD TX WITH IRREGULAR HEART BEAT ASCULATED, HR 100'S TO 120'S & PATIENT WITH ANY C/O'S WITH STABLE BP & O2 SAT ON 1L OF O2 VIA NC. 1500 ROWAN NOTIFIED & OK TO CONTINUE TX WITH 3.3L UF GOAL & TO DECREASE BFR TO 350. REPORT GIVEN TO NURSE ACE. NEXT PLANNED HD TX ON Saturday06/19/21 @ 0800.
[2021-06-16 16:43] VITALS: BP 125/60; PULSE 116; TEMP 97.9
[2021-06-16 19:54] VITALS: BP 130/58; PULSE 110; TEMP 98.2
[2021-06-16 23:17] VITALS: BP 14/59; BP 144/59; PULSE 113; TEMP 97.7
[2021-06-17] VITALS (8 sets, daily range): BP systolic 90–120; BP diastolic 37–63; PULSE 74–101; TEMP 97.1–98.2
--- NOTE | 2021-06-17 06:40 | NUR ---
pt alert and oriented, on 2L O2 per NC, tylenol given @HS for c/o stomach pain, pt had BM shortly afterwards and reported pain gone. has not voided this shift, unable to collect urine for cx. taking large pills crushed in pudding and small pills whole in pudding. LAC INT patent/secure.
--- NOTE | 2021-06-17 08:00 | NUR ---
Scheduled medications given. Shit assessment performed. Patient currenly requiring 2L of O2 via nasal cannula. Denies any SOA. Critical troponin called to Montse, who read back to results. Skin issues noted in shit assessment. Patient in Afib per tele with a current heart rate of 87 bpm. Patient has fistula on RUU. No signs of complications noted. Patient denies any pain, discomfort, or further needs at this time. Call light in reach. Fall percautions in place. VSS. Patient A&O.
--- NOTE | 2021-06-17 13:00 | NUR ---
Chaplain agudelo and offered support with patient.
--- NOTE | 2021-06-17 15:30 | NUR ---
SW met with patient to complete intake. Patient states that she lives in [facility] at [facility] in [facility]. Patient provides that her point of contact his her daughter Milagros [phone] who is also her DPOA-HC. Patient states that she does not utilize DME at this time, but does recieve assistance from staff at [facility] for ADL needs. PCP is Dr. Her, pharmacy is [facility]. Patient plans to return back to [facility] at [facility] on DC. SW will continue to follow DC plan: [facility]
[2021-06-17 17:13] LABS: INR 1.1 (0.8-3.0); PROTHROMBIN TIME 12.4 SECONDS (9.7-12.8)
--- NOTE | 2021-06-17 18:27 | NUR ---
Patient has had an uneventful day. Currently requiring 2L of O2 via nasal cannula. C/O 07/20 pain in abdomen states that it feels like pressure. Denies any further pain, discomfort, SOA, or further needs at this time. Diet changed to mechanical soft. Consent obtained for a thorcentesis. Call light in reach. Fall percautions in place.
[2021-06-18] VITALS (11 sets, daily range): BP systolic 102–129; BP diastolic 53–77; PULSE 69–102; TEMP 97.7–98.8
[2021-06-18 08:06] LABS: HEMOGLOBIN 11.1 g/dl (12.5-16.0); MEAN CELL VOLUME 105 fl (80.0-100.0); MEAN CORPUSCULAR HEMOGLOBIN 34 pg (27-31); MEAN CORPUSCULAR HGB CONC 33 g/dl (33.0-37.0); MEAN PLATELET VOLUME 10.7 fl (7.4-10.4); PLATELET COUNT 198 K/mm3 (130-400); RED BLOOD COUNT 3.24 M/mm3 (4.10-5.30); REDCELL DISTRIBUTION WIDTH-CV 15.9 % (11.5-14.5)
[2021-06-18 08:13] LABS: HEMATOCRIT 33.9 % (37.0-47.0)
[2021-06-18 08:41] LABS: ALBUMIN 2.4 gm/dL (3.4-4.8); CALCIUM 9.4 mg/dL (8.4-10.2); CREATININE, serum 3.89 mg/dL (0.57-1.11); PHOSPHOROUS 2.8 mg/dL (2.3-4.7); POTASSIUM 4.6 mmol/L (3.5-4.5)
[2021-06-18 09:42] LABS: EOSINOPHIL 1 % (0-4); LYMPHOCYTE 6 % (20.0-51.0); NEUTROPHILS 89 % (42.0-75.2)
[2021-06-18 09:48] LABS: ANISOCYTOSIS 1+; HYPOCHROMIA 1+; PLATELET ESTIMATE NORMAL (NORMAL); SCHISTOCYTES 1+
--- NOTE | 2021-06-18 18:55 | NUR ---
Patient has had an ok day. Scheduled medications given. Shift assessment performed. Skin issued noted in shift assessment. Patient currently requiring 2L of O2 via nasal cannula. 750 ml of fluid taken out during right sided thora. Patient tolerated well. VSS. Patient A&O. Call light in reach. Fall percautions in place.
[2021-06-19 00:15] VITALS: BP 121/61; PULSE 76; TEMP 97.6
[2021-06-19 03:32] VITALS: BP 120/54; PULSE 94; TEMP 98.5
--- NOTE | 2021-06-19 06:26 | NUR ---
PT HAD SOME CONFUSION THIS SHIFT, THIS AM IS ALERT AND ORIENTED X4, PT STATES SHE HAS HAD THIS HAPPEN BEFORE AFTER THORECENTESIS DONE, NEW IV LOCK PLACED THIS AM IN LAC, ON 2L O2 TO KEEP SAT >90%
[2021-06-19 08:09] LABS: PATHOLOGY DIFF REVIEW OK
[2021-06-19 08:25] LABS: HEMOGLOBIN 11.1 g/dl (12.5-16.0); MEAN CELL VOLUME 104 fl (80.0-100.0); MEAN CORPUSCULAR HEMOGLOBIN 34 pg (27-31); MEAN CORPUSCULAR HGB CONC 32 g/dl (33.0-37.0); PLATELET COUNT 222 K/mm3 (130-400); REDCELL DISTRIBUTION WIDTH-CV 15.7 % (11.5-14.5)
[2021-06-19 08:33] LABS: HEMATOCRIT 34.3 % (37.0-47.0)
[2021-06-19 08:36] VITALS: BP 133/64; PULSE 74; TEMP 97.3
[2021-06-19 08:41] LABS: ALBUMIN 2.5 gm/dL (3.4-4.8); CALCIUM 9.4 mg/dL (8.4-10.2); CREATININE, serum 4.65 mg/dL (0.57-1.11); PHOSPHOROUS 4.4 mg/dL (2.3-4.7); POTASSIUM 4.3 mmol/L (3.5-4.5)
[2021-06-19 09:04] LABS: BAND 5 % (0-10); EOSINOPHIL 3 % (0-4); LYMPHOCYTE 10 % (20.0-51.0); NEUTROPHILS 78 % (42.0-75.2); PLATELET ESTIMATE NORMAL (NORMAL)
--- NOTE | 2021-06-19 13:50 | NUR ---
Patient taken down for dialysis.
--- NOTE | 2021-06-19 13:51 | NUR ---
MARLENI faxed updates to Ying at [facility].
--- NOTE | 2021-06-19 17:10 | NUR ---
PATIENT TOLERATED HD TX WITH 3L OF FLUID OFF, TACHYCARDIAC 30 MINS INTO TX WITHOUT ANY C/O'S, RATE 100-119 & TELE MONITOR ON. NEXT PLANNED HD TX TOMORROW, Saturday06/20/21 @ 0800.
[2021-06-19 17:25] VITALS: BP 141/79; PULSE 101; TEMP 97.4
--- NOTE | 2021-06-19 18:00 | NUR ---
Patient has had an ok day. Shift assessment performed. Scheduled medications given. Patient had dialysis today, 3L of fluid removed. Skin breakdown noted on patient's sacrum. Mepilex placed. Patient repositioned Q2. Patient denies any pain, discomfort, SOA or further needs at this time. Currenlty requiring 1L of O2 via nasal cannula. Call light in reach. Fall percautions in place.
[2021-06-19 21:17] VITALS: BP 115/54; PULSE 84; TEMP 98
[2021-06-20] VITALS (26 sets, daily range): BP systolic 63–98; BP diastolic 28–84; PULSE 68–96; TEMP 97.8–99.1
--- NOTE | 2021-06-20 06:25 | NUR ---
PT'S SBP 70-80, DBP 30-40, DR CARRASQUILLO NOTIFIED PER PHONE, ORDERS REC'D TO HOLD AM BP MEDS. PT HAS BEEN SLIGHTLY CONFUSED ON AND OFF THIS SHIFT, INCONTINENT OF URINE X1. EGGCRATE MATTRESS PLACED ON BED FOR SKIN CARE, MEPILEX PLACED ON STAGE 2 ULCER ON BUTTOCKS.
[2021-06-20 07:05] LABS: HEMATOCRIT 34.7 % (37.0-47.0); HEMOGLOBIN 11.3 g/dl (12.5-16.0); MEAN CELL VOLUME 105 fl (80.0-100.0); MEAN CORPUSCULAR HEMOGLOBIN 34 pg (27-31); MEAN CORPUSCULAR HGB CONC 33 g/dl (33.0-37.0); MEAN PLATELET VOLUME 10.7 fl (7.4-10.4); PLATELET COUNT 225 K/mm3 (130-400); RED BLOOD COUNT 3.32 M/mm3 (4.10-5.30); REDCELL DISTRIBUTION WIDTH-CV 15.8 % (11.5-14.5)
[2021-06-20 07:27] LABS: ALBUMIN 2.3 gm/dL (3.4-4.8); CALCIUM 8.9 mg/dL (8.4-10.2); CREATININE, serum 3.36 mg/dL (0.57-1.11); PHOSPHOROUS 2.6 mg/dL (2.3-4.7)
[2021-06-20 08:09] LABS: BAND 6 % (0-10); EOSINOPHIL 2 % (0-4); LYMPHOCYTE 8 % (20.0-51.0); METAMYELOCYTE 3 % (0-0); NEUTROPHILS 75 % (42.0-75.2); PLATELET ESTIMATE NORMAL (NORMAL)
--- NOTE | 2021-06-20 10:51 | NUR ---
MARLENI faxed updates to Ying at [facility]. *Discharge plan: [facility]*
--- NOTE | 2021-06-20 18:00 | NUR ---
Patient's BP has been low all shift. Patient very drowsy, but otherwise asymptomatic. SIXTO Stratton notified of changes. Patient bolused 500 ml of NS with very little change to BP. Mental status slightly improved. Jacqueline/Chayito updated on patient's status. Patient currenlty on Q10 min BP checks. Call light in reach. Fall percautions in place.
--- NOTE | 2021-06-20 19:55 | NUR ---
FOREIGN KAY VISITED WITH PATIENT AND NURSES PRESENT IN ROOM, OBSERVED AND UPDATED ON B/P STATES THAT UNLESS HER MENTAL STATUS CHANGES HE WAS LESS CONCERNED ABOUT HER B/P READING, INFORMED THAT PATIENT HAD JUST COMPLETED 250ML BOLUS. DR. CARRASQUILLO ALSO DISCUSSED CODE STATUS WITH PATIENT NOTED THAT PATIENT DOES NOT WANT COMPRESSIONS OR INTUBATED, STATES THAT HE WILL PLACE ORDER FOR DNR/DNI, MEDICAL CODE ONLY
[2021-06-21 03:55] VITALS: BP 86/39; PULSE 90; TEMP 97.5
[2021-06-21 07:45] LABS: HEMOGLOBIN 10.4 g/dl (12.5-16.0); MEAN CELL VOLUME 103 fl (80.0-100.0); MEAN CORPUSCULAR HEMOGLOBIN 33 pg (27-31); MEAN CORPUSCULAR HGB CONC 33 g/dl (33.0-37.0); MEAN PLATELET VOLUME 10.5 fl (7.4-10.4); PLATELET COUNT 217 K/mm3 (130-400); RED BLOOD COUNT 3.11 M/mm3 (4.10-5.30); REDCELL DISTRIBUTION WIDTH-CV 15.5 % (11.5-14.5)
--- NOTE | 2021-06-21 07:47 | NUR ---
This RN checked on pt. and let her know this RN would be her nurse today. Pt. seems drowsy and only answering yes and falling back asleep at this time. Call light and belongings in reach.
[2021-06-21 07:58] LABS: ALBUMIN 2.1 gm/dL (3.4-4.8); CALCIUM 7.9 mg/dL (8.4-10.2); CREATININE, serum 4.92 mg/dL (0.57-1.11); PHOSPHOROUS 3.3 mg/dL (2.3-4.7); POTASSIUM 4.1 mmol/L (3.5-4.5)
--- NOTE | 2021-06-21 08:23 | NUR ---
Pt. progressing w/ plan of care. PRN tylenol given for pain in pt.'s left buttock. Pt. has been repositioned and off her left buttocks with a pillow. Heels floated. AM meds given and assessment complete. Call light and belongings in reach.
[2021-06-21 08:51] LABS: BAND 3 % (0-10); BASOPHIL 1 % (0-2); EOSINOPHIL 1 % (0-4); LYMPHOCYTE 9 % (20.0-51.0); MYELOCYTE 1 % (0-0); NEUTROPHILS 82 % (42.0-75.2)
[2021-06-21 08:52] LABS: ANISOCYTOSIS 1+; POLYCHROMASIA 1+
[2021-06-21 08:54] LABS: PLATELET ESTIMATE NORMAL (NORMAL)
--- NOTE | 2021-06-21 09:06 | NUR ---
Pt.'s BP is 68/41, CARDIOLOGY PHYSICIAN Orly at bedside and assessing pt. at this time.
[2021-06-21 09:10] VITALS: BP 68/41; PULSE 89; TEMP 97.7
--- NOTE | 2021-06-21 10:51 | NUR ---
MARLENI staffed with SIXTO Villalba. The patient's pressures remain unstable and she is not ready for discharge yet. MARLENI faxed updates to Ying at [facility].
[2021-06-21] MEDS ORDERED: NORCO 325 MG-51 TAB PO ×2 (12:06)
[2021-06-21 12:23] VITALS: BP 67/47; PULSE 90; TEMP 97.8
[2021-06-21 13:40] VITALS: BP 87/45
[2021-06-21 17:06] VITALS: BP 117/47; PULSE 101; TEMP 98.6
--- NOTE | 2021-06-21 17:07 | NUR ---
PATIENT TOLERATED HD TX & HYPOTENSION IMPROVED WITH NO FLUID REMOVAL TODAY. GIVEN 600 ML OF FLUID. NEXT PLANNED HD TX ON Saturday06/23/21 @ 0800.
--- NOTE | 2021-06-21 17:19 | NUR ---
Pt. is back from dialysis. Pt. reports feeling much better. Pt.'s dinner is at her bedside and pt. is sitting up about to eat. Pt. denies further needs at this time, call light and belongings in reach. Bed alarm on.
[2021-06-21 19:44] VITALS: BP 88/38; PULSE 100; TEMP 97.4
--- NOTE | 2021-06-21 23:15 | NUR ---
Patient assessed around 2034. Called placed to Dr. Phillips regarding BP and asked when he would like to be notified. Stated that no calls are needed unless change in mentation is noted. Order placed for Dr. Phillips as requested. Peripheral INT to left forerm. Fistula to right upper arm, positive bruit and thrill. LS CTA in upper lobes, diminished in lower. On oxygen at 1 L/min via NC. Denies SOB and dyspnea. BSAx4. No edema. Voices no questions, needs, or concerns at this time. In bed with call light within reach. Bed alarm on.
[2021-06-22 00:31] VITALS: BP 99/39; PULSE 90; TEMP 97.6
[2021-06-22 04:49] VITALS: BP 85/44; PULSE 91; TEMP 97.7
[2021-06-22 06:11] LABS: MEAN CELL VOLUME 102 fl (80.0-100.0); MEAN CORPUSCULAR HEMOGLOBIN 33 pg (27-31); MEAN CORPUSCULAR HGB CONC 33 g/dl (33.0-37.0); MEAN PLATELET VOLUME 10.7 fl (7.4-10.4); PLATELET COUNT 211 K/mm3 (130-400); RED BLOOD COUNT 3.01 M/mm3 (4.10-5.30); REDCELL DISTRIBUTION WIDTH-CV 15.6 % (11.5-14.5)
--- NOTE | 2021-06-22 06:11 | NUR ---
Patient has been resting in bed with call light within reach. Received PRN Acetaminophen as requested for back pain. Voices no further questions, needs, or concerns at this time. Bed alarm on.
[2021-06-22 06:15] LABS: HEMATOCRIT 30.7 % (37.0-47.0)
[2021-06-22 06:26] LABS: ALBUMIN 1.9 gm/dL (3.4-4.8); CALCIUM 7.7 mg/dL (8.4-10.2); CREATININE, serum 3.8 mg/dL (0.57-1.11); PHOSPHOROUS 2.5 mg/dL (2.3-4.7); POTASSIUM 4.1 mmol/L (3.5-4.5)
--- NOTE | 2021-06-22 06:49 | NUR ---
Pt. progressing w/ plan of care. This RN let pt. know she would be her nurse again today. Pt. reports generalized discomfort, plan for this RN to reposition patient with pillows.
[2021-06-22 07:11] LABS: BAND 1 % (0-10); BASOPHIL 1 % (0-2); LYMPHOCYTE 6 % (20.0-51.0); MYELOCYTE 2 % (0-0); NEUTROPHILS 82 % (42.0-75.2); OVALOCYTES 1+; PLATELET ESTIMATE NORMAL (NORMAL)
[2021-06-22 07:12] LABS: BURR CELLS 1+; POLYCHROMASIA 1+
[2021-06-22 07:38] VITALS: BP 93/46; PULSE 87; TEMP 97.5
[2021-06-22 11:48] VITALS: BP 90/41; PULSE 94; TEMP 97.9
--- NOTE | 2021-06-22 14:49 | NUR ---
MARLENI faxed updates to Ying at [facility].
[2021-06-22 16:39] VITALS: BP 102/43; PULSE 89; TEMP 98.1
--- NOTE | 2021-06-22 17:25 | NUR ---
Pt. progressing w/ plan of care. Q2 hr turns in place. Pt. reports pain to buttocks/backside throughout shift, PRN tylenol given throughout the shift. Needs addressed, call light and belongings in reach. Plan for dinner to be up this evening. Pt. worked w/ speech therapy today and did well. No straws, pt. taking PO medications w/ pudding throughout the shift.
--- NOTE | 2021-06-22 18:23 | NUR ---
Pt. progressing w/ plan of care. Pt. sitting up in bed eating dinner. PRN tylenol given w/ fair effect. Needs addressed, call light in reach.
[2021-06-22 20:28] VITALS: BP 104/50; PULSE 82; TEMP 98
--- NOTE | 2021-06-22 23:10 | NUR ---
Patient assessed around 2034. Alert and oriented. Denies pain and discomfort. Offered to reposition, but declined due to being comfortable. Continues on oxygen at 1 L/min via NC. Voices no questions, needs, or concerns at this time. In bed with call light within reach. Bed alarm on.
[2021-06-23 00:06] VITALS: BP 108/40; PULSE 77; TEMP 97.8
[2021-06-23 05:26] VITALS: BP 95/52; PULSE 94; TEMP 97.6
--- NOTE | 2021-06-23 06:14 | NUR ---
Patient has been resting in bed with call light within reach. Recieved PRN APAP as requested at HS and this morning. Voices no questions, needs, or concerns at this time. In bed with call light within reach. Bed alarm on.
[2021-06-23 07:48] VITALS: BP 103/48; PULSE 86; TEMP 97.8
[2021-06-23 09:42] LABS: MEAN CELL VOLUME 104 fl (80.0-100.0); MEAN CORPUSCULAR HGB CONC 32 g/dl (33.0-37.0); MEAN PLATELET VOLUME 10.2 fl (7.4-10.4); PLATELET COUNT 202 K/mm3 (130-400); RED BLOOD COUNT 2.86 M/mm3 (4.10-5.30); REDCELL DISTRIBUTION WIDTH-CV 15.7 % (11.5-14.5)
[2021-06-23 09:48] LABS: HEMATOCRIT 29.6 % (37.0-47.0); HEMOGLOBIN 9.6 g/dl (12.5-16.0); MEAN CORPUSCULAR HEMOGLOBIN 34 pg (27-31)
[2021-06-23 10:04] LABS: ALBUMIN 1.9 gm/dL (3.4-4.8); CALCIUM 7.2 mg/dL (8.4-10.2); CREATININE, serum 5.31 mg/dL (0.57-1.11); PHOSPHOROUS 3.6 mg/dL (2.3-4.7); POTASSIUM 4.4 mmol/L (3.5-4.5)
--- NOTE | 2021-06-23 10:22 | NUR ---
Met with patient's dtr Gretchen in patient's room while she was in dialysis. Olga Lidiajeremy stated that she and her mom discussed her quality of life and the care she wants and had decided on hospice, specifically at [facility] if available. We then met with Nellie while in dialysis along with Chayito nephrology ENGINE INSTALLER and Nellie confirmed she liked the idea of ending dialysis and eating whatever she wants and spending time with her family. Gretchen and Nellie discussed comfort care with Chayito and I made a call about availablility at [facility]. Voicemail left for Dimitri.
[2021-06-23 10:31] LABS: BAND 4 % (0-10); EOSINOPHIL 1 % (0-4); LYMPHOCYTE 12 % (20.0-51.0); NEUTROPHILS 80 % (42.0-75.2)
[2021-06-23 10:33] LABS: PLATELET ESTIMATE NORMAL (NORMAL)
--- NOTE | 2021-06-23 10:46 | NUR ---
Received call back from [facility]. She stated that they are not able to take the patient today but she will look through her planned admissions and get back to me about the earliest available room. She also requested information so clinicals sent as requested. Notified patient's dtr and SW.
[2021-06-23 10:56] VITALS: BP 112/33; PULSE 93; TEMP 97.7
--- NOTE | 2021-06-23 10:57 | NUR ---
PATIENT REQUEST TO DC HD TX 2 HRS EARLY TODAY. NURSE SHAZIA VIVAR APRN & PATIENT'S DAUGHTER PRESENT. REMOVED 188 ML OF FLUID.
--- NOTE | 2021-06-23 11:54 | NUR ---
Patient made comfort care; IV removed, telemetry removed, patient to be repositioned q2h. Scopolamine patch applied behind right ear.
--- NOTE | 2021-06-23 15:54 | NUR ---
A palliative care consult was ordered. The patient and her daughter have decided to pursue comfort measures and they would prefer for the patient to go to the [facility]. Pati, palliative care RN, faxed a referral to [facility]. The hospice house cannot take until Saturday. SW to continue to follow. *Discharge plan: hospice house Saturday*
--- NOTE | 2021-06-23 22:02 | NUR ---
Patient assessed around 2029. Alert and oriented x 4, and able to make needs known. Reported some pain to back. Offered PRN Roxanol or offered to call for order for Acetaminophen. Patient stated she wanted to try the Roxanol. Given 5 mg. Fistula to right upper arm with positive bruit and thrill, gauze to site. No IV access. On oxygen at 1.5 L/min via NC. Reports some SOB with movement. LS CTA in upper lobes, diminished in lower. Respirations even and unlabored. HRI. Capillary refill less than 3 seconds. Non-tenting skin turgor. BSAx4. Abdomen soft and non-tender. Was incontinent of stool. New mepilex placed to stage 2 pressure sore on bottom. No edema. Voices no further questions, needs, or concerns at this time. Resting in bed with call light within reach. Bed alarm on.
--- NOTE | 2021-06-24 05:54 | NUR ---
Received PRN Roxanol once this shift. No further complaints of pain or discomfort at this time. In bed with call light within reach.
--- NOTE | 2021-06-24 08:20 | NUR ---
Pt resting in bed upon entry. Assisted onto bedpan to urinate and repositioned to right side after. Pt denies pain or other needs at this time. Does report SOA w/little to no activity, NC on at 1.5 lpm O2. Denies further needs at this time. Call light in reach.
--- NOTE | 2021-06-25 07:30 | NUR ---
Pt resting in bed this morning. Continues to have dyspnea at rest, O2 at 1.5 lpm for comfort. Repositioned in bed. Denies pain or needs at this time. Call light in reach.
[2021-06-25 19:51] VITALS: BP 113/38; PULSE 57; TEMP 98.8
--- NOTE | 2021-06-26 07:19 | NUR ---
PT ON COMFORT CARE. PT ASLEEP IN BED MOST OF SHIFT. AROUND 0500, PT ASKED FOR PAIN RELIEF. PT GIVEN ROXANOL. PT ASSESSED. BRIEF CHANGED. PT STATED SHE HAS NO OTHER NEEDS AT THIS TIME. CALL LIGHT WITHIN REACH.
[2021-06-26 07:37] VITALS: BP 126/40; PULSE 56; TEMP 97.8
--- NOTE | 2021-06-26 09:24 | NUR ---
Call made to [facility]. They are not available to admit the patient today but are planning for tomorrow. Notified Chayito HENSON attending and MARLENI. Will set time for transfer/discharge later today.
--- NOTE | 2021-06-26 12:48 | NUR ---
Follow up visit from the bag worker. No needs right now.
--- NOTE | 2021-06-26 16:38 | NUR ---
Saúl from [facility] reports that they are able to accept this patient for a 1300 admit Saturday. Agreement made for this time as this is the earliest they can do. Attempt made (x4) to contact [facility] to arrange for a 1300 transport to the [facility] tomorrow and was "Busy" all 4 times. Will reattempt to contact them tomorrow morning.
--- NOTE | 2021-06-26 19:20 | NUR ---
PT IS ON COMFORT CARE. PT A&O X4; VSS; O2 AT 2L; HRR; LUNG BASES DIMINISHED. NO EDEMA NOTED. MEPILEX COVERED STAGE II PRESSURE ULCER TO COCCYX. PT REPOSITIONED; HEELS FLOATED. PT COMPLAINED OF NAUSEA. PT GIVEN ZOFRAN. PT DENIES PAIN, PALPITATIONS, SOB OR DIZZINESS AT THIS TIME. PT EXPRESSED NO OTHER NEEDS AT THIS TIME. CALL LIGHT WITHIN REACH.
[2021-06-26 20:31] VITALS: BP 124/36; PULSE 52; TEMP 98.6
[2021-06-27] MEDS ORDERED: TRANSDERM-0.5 MG/21 TD (10:32)
[2021-06-27] MEDS ORDERED: HYDROCORTISON28.4 GM TP (10:33)
[2021-06-27] MEDS ORDERED: ROXANOL 20MG20 MG/ML SL ×2 (10:34→10:37)
--- NOTE | 2021-06-27 10:47 | NUR ---
The patient is to discharge today, 06/27, to the [facility]. Transportation was scheduled at 1300, via [facility]. MARLENI informed the patient's daughter, the RN, and the hospice house of the transport time. MARLENI also presented and explained the IM and the EMS form to the patient's daughter, Gretchen. Gretchen verbalized understanding and signed the forms. No additional needs at this time.
--- NOTE | 2021-06-27 13:27 | NUR ---
Called to pt's room by family member reporting that they would like vital signs checked before the ambulance gets here. Pt has a pulse of 21 and extremely shallow, irregular breaths. Her color is very pale and she is not responding to her family at bedside. Support provided to family and agree that transfer to hospice house will not occur. I notified assistant executive housekeeper of her status. Orly Castañeda RN, and Dr Phillips were notified by voicemail. I notified Monico at [facility] that pt had . Andree social service assistant was notified and did call ambulance crew regarding cancellation. Support provided to family. They declined having the senior behavioral scientist called to the bedside. Primary nurse was notified at intervals throughout the process.
--- NOTE | 2021-06-27 13:46 | NUR ---
WAS NOTIFIED BY WYATT KOWALSKI RN THAT PT HAD PASSED AT 1317.
--- NOTE | 2021-06-27 13:48 | NUR ---
[facility] notified of patient , patient not a candidate referral # [id number]. Family has chosen [facility] home was called at this time.
--- NOTE | 2021-06-27 14:02 | NUR ---
POST-MORTEM CARE PROVIDED AT THIS TIME. WAITING FOR HOME TO ARRIVE.
--- NOTE | 2021-06-27 14:41 | NUR ---
HOME HERE AT THIS TIME. APPROPRIATE PAPERWORK SIGNED.
--- NOTE | 2021-06-27 15:01 | NUR ---
Iza, Palliative Care RN, notified MARLENI that the patient is close to passing away and transferring to the hospice house would not be necessary. MARLENI notified EMS. Iza notified Monico at the Hospice House. The patient . Warehouse Analyst was notified and [facility] was contacted. The patient was not a candidate. MARLENI followed up with the patient's daughter, Gretchen. Her and the family's preferred home is [facility] and they are ready for the home to be contacted. [facility] Govea contacted the home. They will arrive around 1430. MARLENI notified the daughter. No additional needs at this time.
[2021-06-29 00:03] LABS: CORTISOL FREE - SERUM 0.863 mcg/dL (())
== END 2021-06-27 14:42 | disposition expired | DRG 186 ==
LOC: COL.ER 03:59 → MEDICAL 05:50
PROVIDERS: Emergency Medicine; Internal Medicine Pulmonary Disease; Nurse Practitioner; Registered Nurse; ADMIT Internal Medicine Nephrology
PROC: 5A1D70Z Performance of Urinary Filtration, Intermittent, Less than 6 Hours Per Day (ICD-10-PCS; 2021-06-16)
PROC: 0W993ZZ Drainage of Right Pleural Cavity, Percutaneous Approach (ICD-10-PCS; principal; 2021-06-19)
DX: J90 Pleural effusion, not elsewhere classified (principal); N18.6 End stage renal disease; J18.9 Pneumonia, unspecified organism; E43 Unspecified severe protein-calorie malnutrition; I12.0 Hypertensive chronic kidney disease with stage 5 chronic kidney disease or end stage renal disease; N39.0 Urinary tract infection, site not specified; I42.9 Cardiomyopathy, unspecified; E87.70 Fluid overload, unspecified; I48.0 Paroxysmal atrial fibrillation; E03.9 Hypothyroidism, unspecified; I08.0 Rheumatic disorders of both mitral and aortic valves; Z20.822 Contact with and (suspected) exposure to COVID-19; D63.1 Anemia in chronic kidney disease; K21.9 Gastro-esophageal reflux disease without esophagitis; I95.9 Hypotension, unspecified; D72.829 Elevated white blood cell count, unspecified; E78.5 Hyperlipidemia, unspecified; R53.81 Other malaise; Z79.82 Long term (current) use of aspirin; Z79.890 Hormone replacement therapy; Z99.2 Dependence on renal dialysis; Z96.641 Presence of right artificial hip joint; Z86.73 Personal history of transient ischemic attack (TIA), and cerebral infarction without residual deficits; Z88.0 Allergy status to penicillin; Z88.1 Allergy status to other antibiotic agents; Z68.21 Body mass index [BMI] 21.0-21.9, adult
CPT/HCPCS: J0696; J1644; J7030; J7050; Q5105